=== PATIENT | male | born 1955 | race Two or more races ===

== ENCOUNTER 2024-07-16 20:24 | Inpatient (IN) | payer OTHER, MEDICAID, MEDICARE, SELFPAY ==
--- NOTE | 2024-07-16 20:36 | XR_ITS ---
Examination: AP chest single view Technique one AP portable upright chest single view Exam date and time: July 16, 2024 210 hrs. Comparison June 21, 2024 Indications: Onset shortness of breath today Findings: Normal heart size Lungs are clear The osseous structures are intact Impression: No active disease
--- NOTE | 2024-07-16 20:39 | PD.EDADULT ---
ED General RME/HPI General Chief complaint: Shortness of Breath/Dyspnea Stated complaint: SOB Time Seen by Provider: 07/16/24 20:35 Arrival date/time: 07/16/24 20:24 CC: Cough and shortness of breath HPI onset 2 hours ago. The patient has significant history of 37-uwdh-dorb smoking history and was recently discharged from this facility for shortness of breath pneumonia COPD exacerbation. EMS reports stable vital signs oxygen saturation of 90% with tachypnea and nonproductive wet cough. Patient states that he stopped smoking 2 months ago. Patient denies chest pain. Related Data Home Medications ?Medication ?Instructions ?Recorded ?Confirmed albuterol sulfate 90 mcg/actuation 2 puff inhalation Q4H PRN SOB 06/23/24 06/23/24 aerosol inhaler Previous Rx's ?Medication ?Instructions ?Recorded fluticasone 55 mcg-salmeterol 14 1 inh inhalation BID #1 ea 06/23/24 mcg/actuation breath activated powder prednisone 10 mg tablets in a dose 10 mg PO QDAY #21 tabs 06/23/24 pack amlodipine 10 mg tablet 10 mg PO QDAY 30 days #30 tabs 06/24/24 nicotine 21 mg/24 hr daily 21 mg topical QDAY #28 ea 06/24/24 transdermal patch Allergies Allergy/AdvReac Type Severity Reaction Status Date / Time No Known Allergies Allergy Verified 06/22/24 01:34 Review of Systems Review of Systems Narrative Review of Systems: GEN: No fever, no chills, no weight loss EYES: No discharge, no visual changes, no pain HEENT: No ear pain, no congestion, no sore throat PULM: No shortness of breath, + cough, no congestion CV: No chest pain, no dyspnea on exertion, no palpitations GI: No nausea, no vomiting, no diarrhea, no pain, no constipation : No frequency, no urgency, no dysuria MUSC/SKEL: No joint pain, no back pain SKIN: No rash PSYCH: No hallucinations, no depression HEME/LYMPH: No easy bleeding or bruising tendencies NEURO: No weakness, no headache Past Medical History Past Medical History CARDIAC: Positive Hypertension; Negative Cardiac Disorders or Congestive Heart Failure RESPIRATORY: Negative Chronic Obstructive Pulmonary Disease (COPD) or Asthma GENITOURINARY: Negative Renal Disease ENDOCRINE: Negative Diabetes Mellitus Type 1 or Diabetes Mellitus Type 2 HEMATOLOGIC: Negative Sickle Cell Disease Social History SMOKING STATUS: Current every day smoker ED Exam Narrative Physical exam: [General: Mild discomfort not in any acute distress Head normocephalic HEENT: Eyes pupils are PERRLA EOM intact. Mouth pink dry membranes uvula midline swallow symmetrical phonation is normal all the subsystems of HEENT are within acceptable limits Neck is supple nontender no JVD Chest equal chest rise nontender to palpation Respiratory: Coarse expiratory nonproductive cough. Crackles throughout. CV: Rate rhythm is regular no murmurs rubs or clicks Abdomen is soft nontender no masses positive bowel sounds all 4 quadrants Back: No CVA tenderness no spinous process tenderness from cervical spine thoracic and lumbar spine Skin: Intact no petechiae rash induration ulceration or crepitus Extremities: Moving all extremity against resistance cap refill less than 2 seconds neurosensory intact Neuro: Awake alert oriented x3 Glascow coma 15 no focal deficits] Course Course Course Narrative: Oxygen saturations 88% on room air with persistent cough audible expiratory wheezing. Quality Measures none Orders Category Date Time Status Bedside COVID-19 Antigen Test NOW Care 07/16/24 22:22 Active Bedside Influenza A&B Antigen Test NOW Care 07/16/24 22:22 Active EKG (ED ONLY) *Do not use* NOW Care 07/16/24 20:36 Completed EKG (ED Only) Stat Exams 07/16/24 20:36 Ordered XR chest 1V Stat Exams 07/16/24 20:36 Taken B-Type Natriuretic Peptide Stat Lab 07/16/24 21:00 Completed CBC Stat Lab 07/16/24 21:00 Completed Comprehensive Metabolic Panel Stat Lab 07/16/24 21:00 Completed Drug Screen,Urine Stat Lab 07/16/24 20:36 Ordered LDH (Lactate Dehydrogenase) Stat Lab 07/16/24 21:00 Completed Magnesium Stat Lab 07/16/24 21:00 Completed Partial Thromboplastin Time Stat Lab 07/16/24 21:00 Completed Prothrombin Time with INR Stat Lab 07/16/24 21:00 Completed Troponin I Stat Lab 07/16/24 21:00 Completed Urinalysis Stat Lab 07/16/24 20:36 Ordered ALBUTEROL RT 0.5ml [Proventil Rt 0.5ml] Med 07/16/24 21:33 Discontinued 10 mg INH X1 ONE ALBUTEROL RT 5 ml [Proventil Rt 5 ml] Med 07/16/24 21:24 Discontinued 10 mg INH X1 ONE Albuterol/Ipratr Rt Catrina [Duoneb Rt Catrina] Med 07/16/24 20:36 Discontinued 3 ml INH X1 ONE MethylPREDNISolone.* [SoluMEDROL Inj] Med 07/16/24 20:42 Discontinued 125 mg IVP X1 ONE Sodium Chloride Rt Catrina 0.9% [NS Rt Catrina 0.9%] Med 07/16/24 21:33 Active 3 ml INH PRN PRN Vital Signs Vital signs: Vital Signs Temperature 98.2 F 07/16/24 20:52 Pulse Rate 83 07/16/24 20:52 Respiratory Rate 20 07/16/24 20:52 Blood Pressure 134/85 H 07/16/24 20:52 Pulse Oximetry (%) 100 07/16/24 20:52 Oxygen Delivery Method Room Air 07/16/24 20:52 [facility] Patient data External records reviewed:: [facility] previous records and EMS form Clinical information provided by:: patient and EMS Social determinants that could affect healthcare access:: none Patient has the following chronic illnesses:: COPD [id number] smoking history stopped smoking 2 months ago How is presenting disease/condition affected by chronic disease/condition?: exacerbated by Evaluation data The following diagnostics were reviewed and interpreted by me:: lab results, radiology exam(s) and EKG tracing(s) Lab and/or radiology exams considered but not ordered:: EKG performed at 2119 shows ventricular rate of 86 [place] interval 171 QRS 95 QTc of 392 is normal sinus rhythm. CBC shows no acute leukocytosis anemia thrombocytopenia. Coags within acceptable CMP shows no acute electrolyte imbalances renal impairment transaminitis or T. bili elevation Troponin is negative BNP is negative Lipase is negative Chest x-ray as interpreted by me shows no acute or blatant infiltrate Interpretation Summary: Oxygen saturations decreased to 88% on room air and the patient can persistently coughs, and is moving air but has coarse expiratory crackles after hour-long SVN. At this time that I like to admit the patient for hypoxemia and COPD exacerbation. Patient's case discussed with the resident for Dr. Bolton who agrees to except the patient for admission. Medications Medications considered but not ordered:: None Medication administrations:: Medication Administration History Sodium Chloride (Sodium Chloride Rt Catrina 0.9% 3 Ml Nebu) 3 ml INH PRN PRN PRN Reason: SOLN Stop: 08/15/24 21:32 Last Admin: 07/16/24 21:39 Dose: 3 ml Documented By: BARBRA Discontinued Medications Albuterol (Albuterol Rt 25 Mg/5 Ml Nebu) 10 mg INH X1 ONE Stop: 07/16/24 21:25 Albuterol (Albuterol Rt 2.5 Mg/0.5 Ml Nebu) 10 mg INH X1 ONE Stop: 07/16/24 21:34 Last Admin: 07/16/24 21:39 Dose: 10 mg Documented By: BARBRA Albuterol/Ipratropium (Albuterol/Ipratropium (Duoneb) Rt Catrina 3 Ml Nebu) 3 ml INH X1 ONE Stop: 07/16/24 20:37 Last Admin: 07/16/24 21:16 Dose: 3 ml Documented By: BARBRA Methylprednisolone Sodium Succinate (Methylprednisolone Sod Succ 62.5 Mg/Ml 2ml Vial) 125 mg IVP X1 ONE Stop: 07/16/24 20:43 Last Admin: 07/16/24 21:30 Dose: 125 mg Documented By: MANI No Consultations Consultation(s) initiated? (list below): No Diagnosis Differential Diagnosis ED Complaint MDM: Pneumonia COPD exacerbation CHF Most likely diagnosis given after review of the tests above:: COPD exacerbation Admission Indicated Admission indicated?: indicated Explain why admission is indicated or not indicated:: Requires further medical management Admission Request Was there a request for admission?: No Disposition Plan Disposition Plan: Discharge Discharge Attestation Discharge Attestation: The patient and all family members were given an opportunity to ask questions and understood the discharge instructions. Discharge instructions specifically effects, indications for sooner follow up or return to the emergency department, and the expected course of current diagnosis. Patient condition: Stable Medical Decision Making Differential Diagnosis Differential Diagnosis: Pneumonia COPD exacerbation CHF Lab Data 07/16/24 21:00 07/16/24 21:00 Labs: Lab Results 07/16/24 Range/Units 21:00 WBC 9.4 (3.8-10.6) Thou/mm3 RBC 4.99 (4.50-5.90) Miln/mm3 Hgb 16.2 H (13.5-16.0) g/dL Hct 46.6 (41.0-53.0) % MCV 93 (80-100) fL MCH 32.5 (25.0-35.0) pg MCHC 34.8 (31.0-37.0) g/dl RDW Std Deviation 39.7 (35.1-43.9) fL Plt Count 252 D (140-440) Thou/mm3 Neut % (Auto) 47 (37-80) % Lymph % (Auto) 26 (10-50) % [place] % (Auto) 10 (0-12) % Eos % (Auto) 16 H (0-10) % Baso % (Auto) 1 (0-2.5) % Neut # (Auto) 4.4 (1.8-7.7) Thou/mm3 Lymph # (Auto) 2.5 (1.0-4.8) Thou/mm3 [place] # (Auto) 0.9 H (0.0-0.8) Thou/mm3 Eos # (Auto) 1.5 H (0.0-0.5) Thou/mm3 Baso # (Auto) 0.1 (0.0-0.2) Thou/mm3 Immature Gran # (Auto) 0.02 H (0.00-0.00) Thou/mm3 Absolute Nucleated RBC 0.00 (0.00-0.00) Thou/mm3 Immature Gran % 0 (0-0) % Nucleated RBC % 0 (0) /100 WBC PT 10.8 (9.0-12.2) Seconds INR 1.0 (0.9-1.3) APTT 24.8 (22.0-36.0) Seconds Sodium 135 L (136-145) mMol/L Potassium 4.0 (3.4-5.1) mMol/L Chloride 101 (98-107) mMol/L Carbon Dioxide 25.8 (20.0-31.0) mMol/L Anion Gap 8 (7-16) BUN 10 (9-23) mg/dL Creatinine 0.7 (0.6-1.3) mg/dL Estim Creat Clear Calc 102.4 (>60) mL/min eGFR > 60 (60 - ) See Note BUN/Creatinine Ratio 14 (12-20) Ratio Glucose 104 (74-106) mg/dL Calculated Osmolality 269 L (275-295) Calcium 9.9 (8.3-10.6) mg/dL Corrected Calcium 9.9 (8.5-10.1) mg/dL Magnesium 2.1 (1.6-2.6) mg/dL Total Bilirubin 0.5 (0.3-1.2) mg/dL AST 27 (0-34) U/L ALT 30 (10-49) U/L Alkaline Phosphatase 96 (46-116) U/L Lactate Dehydrogenase 164 (120-246) U/L Troponin I < 0.020 (0.0-0.045) ng/mL B-Natriuretic Peptide < 20 (0-100) pg/mL Total Protein 7.5 (5.7-8.2) gm/dL Albumin 4.6 (3.4-4.8) gm/dL Globulin 2.9 (2.3-3.5) gm/dL Albumin/Globulin Ratio 1.6 (1.2-2.2) Discharge Plan Plan Patient Disposition: Other Care w/in Hosp ([facility]) Patient condition on transfer: Stable Prescriptions/Referrals Prescriptions/Med Rec: No Action albuterol sulfate 90 mcg/actuation Hfa Aerosol Inhaler 2 puff INHALATION Q4H PRN (Reason: SOB ) fluticasone propion-salmeterol 55-14 mcg/actuation aerosol powdr breath activated 1 inh inhalation BID Qty: 1 0RF prednisone 10 mg tablets,dose pack 10 mg PO QDAY Qty: 21 0RF nicotine 21 mg/24 hr patch 24 hour 21 mg topical QDAY Qty: 28 0RF amlodipine 10 mg tablet 10 mg PO QDAY 30 Days Qty: 30 0RF Referrals: Sanchez Saini PA-C [Primary Care Provider] - In 1 week Problem List Clinical Impression: COPD exacerbation, Hypoxemia Patient/Caregiver Discharge Instructions Print Language: Danish Stand Alone Forms: Yuli Award Info., Patient Portal Info Letter PA/ASSISTANT FOOD SERVICE MANAGER Supervising Physician PA/ASSISTANT FOOD SERVICE MANAGER Supervising Physician: Phani Brenner ENP
[2024-07-16 20:52] VITALS: BP 134/85; PULSE 83; RESP 20; TEMP 36.8; O2SAT 100
[2024-07-16 21:00] VITALS: PULSE 94; O2SAT 99; BMI 24.3
--- NOTE | 2024-07-16 21:05 | PC.NURSE ---
PT AWAKE AND ALERT BROUGHT INTO ER FROM HOME BY AMBULANCE FOR COMPLAINTS OF SHORTNESS OF BREATH X2 HOURS. PT REPORTS RECENT DX WITH PNEUMONIA WITH ADMISSION TO THE HOSPITAL. PER EMS PT SATTING 92 ON ROOM AIR. PT PLACED ON 15 LITERS IN ROUTE AND GIVEN X1 BREATHING TREATMENT. IV 18G PLACED TO LAC. PT HAS HISTORY OF COPD AND SMOKING. PT REPORTS HAS NOT SMOKED SINCE DC FROM HOSPITAL. PT DENIES ANY PAIN. PT COUGHING ON ARRIVAL, REPORTS UNABLE TO COUGH UP PHLEGM. PT PLACED ON MONITOR.
[2024-07-16] MEDS: ALBUTEROL/IPRATROPIUM (Duoneb) RT SOL 3 ML NEBU INH (21:16)
[2024-07-16 21:23] LABS: Basophils # (Auto) 0.1 Thou/mm3 (0.0-0.2); Basophils % (Auto) 1 % (0-2.5); Eosinophils # (Auto) 1.5 Thou/mm3 (0.0-0.5); Eosinophils % (Auto) 16 % (0-10); Hematocrit 46.6 % (41.0-53.0); Hemoglobin 16.2 g/dL (13.5-16.0); Immature Granulocytes % (Auto) 0 % (0-0); Immature Granulocytes Auto 0.02 Thou/mm3 (0.00-0.00); Lymphocytes # (Auto) 2.5 Thou/mm3 (1.0-4.8); Lymphocytes % (Auto) 26 % (10-50); Mean Corpuscular HGB Conc 34.8 g/dl (31.0-37.0); Mean Corpuscular Hemoglobin 32.5 pg (25.0-35.0); Mean Corpuscular Volume 93 fL (80-100); Monocytes # (Auto) 0.9 Thou/mm3 (0.0-0.8); Monocytes % (Auto) 10 % (0-12); Neutrophils # (Auto) 4.4 Thou/mm3 (1.8-7.7); Neutrophils % (Auto) 47 % (37-80); Nucleated Red Blood Cell % 0 /100 WBC (0); Platelet Count 252 Thou/mm3 (140-440); RDW Standard Deviation 39.7 fL (35.1-43.9); Red Blood Count 4.99 Miln/mm3 (4.50-5.90); White Blood Count 9.4 Thou/mm3 (3.8-10.6)
[2024-07-16 21:24] VITALS: PULSE 103; RESP 26; O2SAT 98
[2024-07-16] MEDS: MethylPREDNISolone SOD SUCC 62.5 MG/ML 2ML VIAL 125 MG IVP (21:30)
[2024-07-16 21:34] LABS: Partial Thromboplastin Time 24.8 Seconds (22.0-36.0); Prothrombin Time 10.8 Seconds (9.0-12.2)
[2024-07-16 21:35] LABS: B-Type Natriuretic Peptide < 20 pg/mL (0-100)
[2024-07-16 21:39] VITALS: PULSE 101
[2024-07-16] MEDS: ALBUTEROL RT 2.5 MG/0.5 ML NEBU 10 MG INH (21:39)
[2024-07-16] MEDS: SODIUM CHLORIDE RT SOL 0.9% 3 ML NEBU INH (21:39)
[2024-07-16 21:40] LABS: Alanine Aminotransferase 30 U/L (10-49); Albumin, Serum 4.6 gm/dL (3.4-4.8); Albumin/Globulin Ratio 1.6 (1.2-2.2); Alkaline Phosphatase 96 U/L (46-116); Anion Gap 8 (7-16); Aspartate Amino Transferase 27 U/L (0-34); Bilirubin,Total 0.5 mg/dL (0.3-1.2); Blood Urea Nitrogen 10 mg/dL (9-23); Calcium 9.9 mg/dL (8.3-10.6); Calcium (Corrected) 9.9 mg/dL (8.5-10.1); Carbon Dioxide 25.8 mMol/L (20.0-31.0); Chloride 101 mMol/L (98-107); Globulin 2.9 gm/dL (2.3-3.5); Glucose 104 mg/dL (74-106); LDH (Lactate Dehydrogenase) 164 U/L (120-246); Magnesium 2.1 mg/dL (1.6-2.6); Osmolality,Calculated 269 (275-295); Sodium 135 mMol/L (136-145); Total Protein 7.5 gm/dL (5.7-8.2); Troponin I < 0.020 ng/mL (0.0-0.045)
[2024-07-16 21:41] VITALS: PULSE 98; RESP 24; O2SAT 99
[2024-07-16 21:49] LABS: BUN/Creatinine Ratio 14 Ratio (12-20); Creatinine (Component) 0.7 mg/dL (0.6-1.3); Estimated Creatinine Clearance 102.4 mL/min (>60); eGFR > 60 See Note
[2024-07-16 22:25] VITALS: BP 132/81; PULSE 101; RESP 26; O2SAT 88
--- NOTE | 2024-07-16 23:11 | PD.RESHP ---
Documentation for date of: 07/16/24 [facility] History of Present Illness History of present illness: Rosario Morrow is a 69-year-old male with a past medical history of COPD (no home O2) and hypertension who presents with worsening cough and shortness of breath. Patient states that symptoms started 3 days ago and getting worse feels prior to presenting to the ED. He states that he was sitting at home watching TV when he experienced his change in symptoms. In addition to cough and shortness of breath, he has had increased sputum production and sore throat but no fever or chills., He has a [id number] history of smoking cigarettes but states that he has stopped approximately 2 months ago. He still used to drink 8-12 beers per day but stopped drinking when he stopped smoking. Otherwise, patient admitted on 06/22 to 06/24 for acute COPD exacerbation, where he was prescribed azithromycin (which he finished), prednisone taper, and did not require home oxygen at that time. ED course: BP 132/81, HR 101, RR 26, 88% on 4 L NC, afebrile CBC unremarkable, CMP unremarkable, chest x-ray unremarkable In ED given DuoNebs, methylprednisolone 125 mg x 1, and albuterol x 1 PMHx: as noted above Medications: Amlodipine 10 mg daily SHx: [id number] history of smoking (quit 2 months ago), PSHx: no previous procedures Review of Systems Review of Systems Systems Reviewed: All systems reviewed, normal except as documented Exam Vital Signs Temp Pulse Resp BP Pulse Ox O2 Del Method O2 Flow Rate 98.2 F 101 H 26 H 132/81 H 88 L Room Air 4 07/16/24 20:52 07/16/24 22:25 07/16/24 22:25 07/16/24 22:25 07/16/24 22:25 07/16/24 22:25 07/16/24 21:41 Narrative Exam General: AOx3, no acute distress, able to speak full sentences HEENT: NC/AT, mucous membranes moist, bilateral sclera anicteric Cardiovascular: regular rate and rhythm, S1/S2 present, no murmurs appreciated Pulmonary: mild expiratory wheezing bilaterally; not using accessory muscles, breathing comfortably on NC Abdominal: soft, non-tender, non-distended, no rebound/guarding, normal bowel sounds present Musculoskeletal: normal ROM, no peripheral edema Skin: warm and dry, intact, no rashes Neuro: CN II-XII intact, no focal deficits Results: Labs 07/17/24 04:37 07/17/24 04:37 Labs: Short CBC 07/16/24 Range/Units 21:00 WBC 9.4 (3.8-10.6) Thou/mm3 Hgb 16.2 H (13.5-16.0) g/dL Hct 46.6 (41.0-53.0) % Plt Count 252 D (140-440) Thou/mm3 BMP 07/16/24 21:00 Sodium 135 L Potassium 4.0 Chloride 101 Carbon Dioxide 25.8 BUN 10 Creatinine 0.7 Glucose 104 Calcium 9.9 Cardiac Enzymes 07/16/24 Range/Units 21:00 Troponin I < 0.020 (0.0-0.045) ng/mL Liver Function 07/16/24 Range/Units 21:00 Total Bilirubin 0.5 (0.3-1.2) mg/dL AST 27 (0-34) U/L ALT 30 (10-49) U/L Alkaline Phosphatase 96 (46-116) U/L Albumin 4.6 (3.4-4.8) gm/dL Quality Measures Quality Measures none Advance care planning discussed with:: patient Medications Home Medications and Allergies Home Medications ?Medication ?Instructions ?Recorded ?Confirmed ?Type albuterol sulfate 90 mcg/actuation 2 puff inhalation Q4H PRN SOB 06/23/24 06/23/24 History aerosol inhaler Allergies Allergy/AdvReac Type Severity Reaction Status Date / Time No Known Allergies Allergy Verified 06/22/24 01:34 Visit Medications Acetaminophen (Acetaminophen 325 Mg Tablet) 650 mg PO Q6H PRN PRN Reason: PAIN OR FEVER > 101 Stop: 08/15/24 23:02 Azithromycin (Azithromycin 250 Mg Tablet) 250 mg PO QDAY ANTONI Stop: 07/24/24 08:59 Guaifenesin/Dextromethorphan (Guaifenesin/Dm Tablet) 1 each PO Q4HR PRN PRN Reason: COUGH Stop: 08/15/24 23:04 Heparin Sodium (Porcine) (Heparin Sod Inj 5000 Unit/Ml Vial) 5,000 unit SC Q12H ANTONI Stop: 07/30/24 23:14 Ipratropium [place] (Ipratropium Rt 0.5 Mg/ 2.5 Ml Nebu) mg INH Q4HRRT COUNTS INCLUDE 234 BEDS AT THE [facility] Stop: 08/16/24 02:59 Levalbuterol HCl (Levalbuterol Rt 0.63 Mg/3 Ml Nebu) 0.63 mg INH Q4HRRT COUNTS INCLUDE 234 BEDS AT THE [facility] Stop: 08/16/24 02:59 Nicotine (Nicotine Patch 14 Mg/24 Hr Patch.Td24) 14 mg TOP QDAY PRN PRN Reason: SMOKING CESSATION Stop: 08/16/24 08:59 Ondansetron HCl (Ondansetron Inj 2 Mg/Ml Inj 2 Ml) 4 mg IV Q6H PRN; Protocol PRN Reason: NAUSEA OR VOMITING Stop: 08/15/24 23:02 Pantoprazole Sodium (Pantoprazole 40 Mg Tablet) 40 mg PO QDAY COUNTS INCLUDE 234 BEDS AT THE [facility] Stop: 08/16/24 08:59 Prednisone (Prednisone 20 Mg Tablet) 40 mg PO QDAY COUNTS INCLUDE 234 BEDS AT THE [facility] Stop: 07/23/24 23:05 Sodium Chloride (Sodium Chloride Rt Catrina 0.9% 3 Ml Nebu) 3 ml INH PRN PRN PRN Reason: SOLN Stop: 08/15/24 21:32 Last Admin: 07/16/24 21:39 Dose: 3 ml Discontinued Medications Albuterol (Albuterol Rt 25 Mg/5 Ml Nebu) 10 mg INH X1 ONE Stop: 07/16/24 21:25 Last Admin: 07/16/24 23:04 Dose: Not Given Albuterol (Albuterol Rt 2.5 Mg/0.5 Ml Nebu) 10 mg INH X1 ONE Stop: 07/16/24 21:34 Last Admin: 07/16/24 21:39 Dose: 10 mg Albuterol/Ipratropium (Albuterol/Ipratropium (Duoneb) Rt Catrina 3 Ml Nebu) 3 ml INH X1 ONE Stop: 07/16/24 20:37 Last Admin: 07/16/24 21:16 Dose: 3 ml Azithromycin (Azithromycin 250 Mg Tablet) 500 mg PO X1 ONE Stop: 07/16/24 23:06 Methylprednisolone Sodium Succinate (Methylprednisolone Sod Succ 62.5 Mg/Ml 2ml Vial) 125 mg IVP X1 ONE Stop: 07/16/24 20:43 Last Admin: 07/16/24 21:30 Dose: 125 mg Assessment & Plan Plan Rosario Morrow is a 69-year-old male with a past medical history of COPD (no home O2) and hypertension who is admitted for COPD exacerbation. #Acute hypoxic respiratory failure, secondary to #COPD exacerbation Presents with cough, increased sputum production, and shortness of breath requiring supplemental O2. Previous [id number] smoking history, states he quit 2 months ago. ? Levalbuterol and ipratropium every 4 hours ? Azithromycin 250 mg p.o. daily ? Prednisone 40 mg p.o. daily ? Supplemental oxygenation as needed ? Maintain oxygen saturation between 88-92% ? Nicotine patch ? Mucinex for chest congestion #Hypertension ? Amlodipine 10 mg daily Hospital management: Disposition: med surg Fluids: not indicated Diet: regular Lines: peripheral DVT prophylaxis: heparin SC BID GI prophylaxis: pantoprazole 40 mg PO daily CODE STATUS: full code ----- Plan discussed with attending physician Dr. Hoang Cruz MD PGY-1 Internal Medicine Attending Provider Attestation/Addendum I reviewed labs, imaging, EKG, home medications and prior available records. Face to face evaluation was performed by me. I have personally examined the patient and discussed assessment and plan with the IM team. I reviewed the resident note and agree with the plan with exceptions as below. 69-year-old male with history of COPD and tobacco use who presented with a chief complaint of cough and shortness of breath. He was found to have COPD exacerbation. COPD exacerbation: Likely in the setting of medication noncompliance. Started the patient on DuoNebs. Start prednisone 40 mg daily. Continue smoking abstinence. Ensure medication compliance. Start azithromycin.
[2024-07-16] MEDS: AZITHROMYCIN 250 MG TABLET 500 MG PO (23:52)
[2024-07-17] VITALS (15 sets, daily range): BP systolic 139–157; BP diastolic 69–96; PULSE 71–90; RESP 18–90; TEMP 36.2–37.2; O2SAT 90–99; BMI 24.3
--- NOTE | 2024-07-17 00:44 | PC.NURSE ---
ATTEMPT TO CALL DR. DEGROOT AND RESIDENTS IN REGARDS TO ORDER FOR BROMIDE BREATHING TREATMENT D/T CALL RECEIVED FROM PHARMACY. NO ANSWER AT THIS TIME. WILL ATTEMPT TO CALL BACK.
[2024-07-17] MEDS: LEVALBUTEROL RT 0.63 MG/3 ML NEBU INH ×3 (02:10→10:04)
[2024-07-17 04:45] LABS: Basophils % (Auto) 0 % (0-2.5); Eosinophils % (Auto) 0 % (0-10); Hematocrit 43.4 % (41.0-53.0); Hemoglobin 15.3 g/dL (13.5-16.0); Immature Granulocytes % (Auto) 0 % (0-0); Immature Granulocytes Auto 0.01 Thou/mm3 (0.00-0.00); Lymphocytes # (Auto) 0.4 Thou/mm3 (1.0-4.8); Lymphocytes % (Auto) 7 % (10-50); Mean Corpuscular HGB Conc 35.3 g/dl (31.0-37.0); Mean Corpuscular Hemoglobin 32.8 pg (25.0-35.0); Mean Corpuscular Volume 93 fL (80-100); Monocytes % (Auto) 1 % (0-12); Neutrophils # (Auto) 5.1 Thou/mm3 (1.8-7.7); Neutrophils % (Auto) 92 % (37-80); Nucleated Red Blood Cell % 0 /100 WBC (0); Platelet Count 228 Thou/mm3 (140-440); RDW Standard Deviation 39.7 fL (35.1-43.9); Red Blood Count 4.66 Miln/mm3 (4.50-5.90); White Blood Count 5.5 Thou/mm3 (3.8-10.6)
[2024-07-17 05:08] LABS: Anion Gap 9 (7-16); BUN/Creatinine Ratio 13 Ratio (12-20); Blood Urea Nitrogen 10 mg/dL (9-23); Calcium 9.8 mg/dL (8.3-10.6); Carbon Dioxide 25.5 mMol/L (20.0-31.0); Cardiac Risk Estimate 3.5 RATIO (4.0-6.7); Chloride 100 mMol/L (98-107); Cholesterol 167 mg/dL (132-200); Creatinine (Component) 0.8 mg/dL (0.6-1.3); Estimated Creatinine Clearance 89.6 mL/min (>60); Glucose 211 mg/dL (74-106); HDL Cholesterol 48 mg/dL (40-60); LDL Cholesterol,Calculated 110 mg/dL (0-130); Magnesium 1.9 mg/dL (1.6-2.6); Osmolality,Calculated 273 (275-295); Phosphorous 3.6 mg/dL (2.4-5.1); Potassium 4.2 mMol/L (3.4-5.1); Sodium 134 mMol/L (136-145); Triglycerides 43 mg/dL (30-150); eGFR > 60 See Note
[2024-07-17] MEDS: IPRATROPIUM RT 0.5 MG/ 2.5 ML NEBU INH ×2 (06:02→10:04)
--- NOTE | 2024-07-17 07:15 | PC.NURSE ---
in to assess pt. pt resting quietly at this time with c/o sob for the past 3 months and cough. pt without further complaints at this time. orders received and initiated. call light is within reach. plan of care ongoing.
[2024-07-17] MEDS: PANTOPRAZOLE 40 MG TABLET PO (08:30)
[2024-07-17] MEDS: amLODIPine BESYLATE 5 MG TABLET 10 MG PO (08:31)
[2024-07-17 08:32] LABS: Collection Type, Urine Clean Catch
[2024-07-17] MEDS: predniSONE 20 MG TABLET 40 MG PO (08:32)
[2024-07-17] MEDS: HEPARIN SOD INJ 5000 UNIT/ML VIAL SC ×2 (08:33→20:41)
[2024-07-17 08:34] LABS: Bacteria,Urine Rare; Bilirubin,Urine Negative (Negative); Blood,Urine Negative (Negative); Clarity,Urine Clear (Clear/Hazy); Color,Urine Yellow (Lt Yel-Yel); Glucose, Urine Trace (Negative); Hyaline Casts,Urine < 1 /hpf (0-1); Ketones,Urine Negative (Negative); Leukocyte Esterase,Urine Negative (Negative); Nitrite,Urine Negative (Negative); Protein,Urine 1+ (Neg - Trace); RBC,Urine 3 /hpf (0-3); Specific Gravity,Urine 1.029 (1.001-1.035); Squamous Epithelial Cell,Urine < 1 /hpf (0-5); Urobilinogen,Urine Negative mg/dL (0.0-1.0); WBC,Urine 5 /hpf (0-5)
[2024-07-17 08:40] LABS: Amphetamine/Methamp Scrn,U Negative (Negative); Barbiturate Screen,Urine Negative (Negative); Benzodiazepines Screen,Urine Negative (Negative); Benzoylecgonine Screen, Ur Negative (Negative); Fentanyl Screen,Urine Negative (Negative); Opiate Screen,Urine Negative (Negative); THC Screen,Urine Negative (Negative)
[2024-07-17] MEDS: ALBUTEROL/IPRATROPIUM (Duoneb) RT SOL 3 ML NEBU INH ×3 (14:00→22:55)
[2024-07-17] MEDS: Magnesium Sulfate 2 GM Ivpb 2 GM/50 ML BAG IV (14:36)
--- NOTE | 2024-07-17 14:41 | ESPR_ITS ---
<Statement entered by Chao Cedeno MD - 07/17/24 16:32> Senior Resident Attestation: I supervised/discussed management plan with sales management intern physician Dr. Kennedy, and was involved in the care of this patient. I personally saw and examined the patient and discussed the assessment and plan with the entire medicine team, including my attending. I agree with the assessment and plan as documented. Patient was seen and examined at the bedside. He continues to have mild expiratory wheezing. Prednisone was changed to Solu-Medrol and Levalbuterol was changed to DuoNebs. We will continue him on azithromycin. Patient's care was discussed with attending physician, Dr. Fine. Chao Cedeno MD PGY-2. Documentation for date of: 07/17/24 Subjective Subjective Interval history: Patient seen at bedside this morning. No overnight events. Patient stated that he has not smoked or drank alcohol in about 2 months now. He also stated that he has been short of breath for the past few weeks and say that he has not had any sick contacts at this time. No other complaints at this time. Exam Vital Signs Temp Pulse Resp BP Pulse Ox O2 Del Method O2 Flow Rate 98.2 F 74 19 142/88 H 95 Nasal Cannula 1 07/17/24 12:36 07/17/24 14:00 07/17/24 14:00 07/17/24 12:36 07/17/24 14:00 07/17/24 12:36 07/17/24 14:00 Narrative Exam General: A/O x3, no acute distress Eyes: PERRL, EOMI. Anicteric, vision grossly intact. Ears: No ear pain, no ear discharge, Hearing grossly intact. Nose: No nasal discharge. Mouth/Throat: Dry mucous membranes, no redness, no lesions. Neck: Neck supple, non-tender, no cervical lymphadenopathy. Lungs: Wheezing, No accessory muscle use. Cardio: Normal S1/S2, regular rhythm, no murmurs, no JVD. Abdomen: Soft, non-tender, no palpable masses, peristalsis present, no guarding or rebound. Extremities: Symmetrical, no significant deformities, no peripheral edema , non-tender, peripheral pulses presents. Skin: No rashes, no lesions, warm to touch. Neuro: No focal neurological deficits. motor and sensory intact Psych: Cooperative, appropriate mood and effect. Objective Labs 07/17/24 04:37 07/17/24 04:37 Labs: Laboratory Results - last 24 hr 07/16/24 07/17/24 07/17/24 21:00 04:37 07:32 WBC 9.4 5.5 D RBC 4.99 4.66 Hgb 16.2 H 15.3 Hct 46.6 43.4 MCV 93 93 MCH 32.5 32.8 MCHC 34.8 35.3 RDW Std Deviation 39.7 39.7 Plt Count 252 D 228 Neut % (Auto) 47 92 H Lymph % (Auto) 26 7 L [place] % (Auto) 10 1 Eos % (Auto) 16 H 0 Baso % (Auto) 1 0 Neut # (Auto) 4.4 5.1 Lymph # (Auto) 2.5 0.4 L [place] # (Auto) 0.9 H 0.0 Eos # (Auto) 1.5 H 0.0 Baso # (Auto) 0.1 0.0 Immature Gran # (Auto) 0.02 H 0.01 H Absolute Nucleated RBC 0.00 0.00 Immature Gran % 0 0 Nucleated RBC % 0 0 PT 10.8 INR 1.0 APTT 24.8 Sodium 135 L 134 L Potassium 4.0 4.2 Chloride 101 100 Carbon Dioxide 25.8 25.5 Anion Gap 8 9 BUN 10 10 Creatinine 0.7 0.8 Estim Creat Clear Calc 102.4 89.6 eGFR > 60 > 60 BUN/Creatinine Ratio 14 13 Glucose 104 211 H D Calculated Osmolality 269 L 273 L Calcium 9.9 9.8 Corrected Calcium 9.9 Phosphorus 3.6 Magnesium 2.1 1.9 Total Bilirubin 0.5 AST 27 ALT 30 Alkaline Phosphatase 96 Lactate Dehydrogenase 164 Troponin I < 0.020 B-Natriuretic Peptide < 20 Total Protein 7.5 Albumin 4.6 Globulin 2.9 Albumin/Globulin Ratio 1.6 Triglycerides 43 Cholesterol 167 LDL Cholesterol, Calc 110 HDL Cholesterol 48 Cholesterol/HDL Ratio 3.5 L Ur Collection Type Clean Catch Urine Color Yellow Urine Clarity Clear Urine pH 6.0 Ur Specific [place] 1.029 Urine Protein 1+ A Urine Glucose (UA) Trace Urine Ketones Negative Urine Blood Negative Urine Nitrite Negative Urine Bilirubin Negative Urine Urobilinogen (Auto) Negative Ur Leukocyte Esterase Negative Urine RBC 3 Urine WBC 5 Ur Squamous Epith Cells < 1 Urine Bacteria Rare Hyaline Casts < 1 Urine Opiates Screen Urine Fentanyl Screen Ur Barbiturates Screen U Amphetamin/Meth Scrn U Benzodiazepines Scrn U Cocaine Metab Screen U Marijuana (THC) Screen 07/17/24 08:23 WBC RBC Hgb Hct MCV MCH MCHC RDW Std Deviation Plt Count Neut % (Auto) Lymph % (Auto) [place] % (Auto) Eos % (Auto) Baso % (Auto) Neut # (Auto) Lymph # (Auto) [place] # (Auto) Eos # (Auto) Baso # (Auto) Immature Gran # (Auto) Absolute Nucleated RBC Immature Gran % Nucleated RBC % PT INR APTT Sodium Potassium Chloride Carbon Dioxide Anion Gap BUN Creatinine Estim Creat Clear Calc eGFR BUN/Creatinine Ratio Glucose Calculated Osmolality Calcium Corrected Calcium Phosphorus Magnesium Total Bilirubin AST ALT Alkaline Phosphatase Lactate Dehydrogenase Troponin I B-Natriuretic Peptide Total Protein Albumin Globulin Albumin/Globulin Ratio Triglycerides Cholesterol LDL Cholesterol, Calc HDL Cholesterol Cholesterol/HDL Ratio Ur Collection Type Urine Color Urine Clarity Urine pH Ur Specific [place] Urine Protein Urine Glucose (UA) Urine Ketones Urine Blood Urine Nitrite Urine Bilirubin Urine Urobilinogen (Auto) Ur Leukocyte Esterase Urine RBC Urine WBC Ur Squamous Epith Cells Urine Bacteria Hyaline Casts Urine Opiates Screen Negative Urine Fentanyl Screen Negative Ur Barbiturates Screen Negative U Amphetamin/Meth Scrn Negative U Benzodiazepines Scrn Negative U Cocaine Metab Screen Negative U Marijuana (THC) Screen Negative Quality Measures Quality Measures none Advance care planning discussed with:: patient Assessment & Plan Assessment Current Active Medications: Generic Name Dose Route Start Last Admin Trade Name Freq PRN Reason Stop Dose Admin Acetaminophen 650 mg 07/16/24 23:03 Acetaminophen 325 Mg Tablet PO 08/15/24 23:02 Q6H PRN PAIN OR FEVER > 101 Albuterol/Ipratropium 3 ml 07/17/24 15:00 07/17/24 14:00 Albuterol/Ipratropium (Duoneb) Rt Catrina 3 Ml Nebu INH 08/16/24 14:59 3 ml Q4HRRT ANTONI Administration Amlodipine Besylate 10 mg 07/17/24 09:00 07/17/24 08:31 Amlodipine Besylate 5 Mg Tablet PO 08/16/24 08:59 10 mg QDAY ANTONI Administration Azithromycin 250 mg 07/17/24 21:00 Azithromycin 250 Mg Tablet PO 07/24/24 20:59 DAILY@2100 [facility] Guaifenesin/Dextromethorphan 1 each 07/16/24 23:05 Guaifenesin/Dm Tablet PO 08/15/24 23:04 Q4HR PRN COUGH Heparin Sodium (Porcine) 5,000 unit 07/17/24 09:00 07/17/24 08:33 Heparin Sod Inj 5000 Unit/Ml Vial SC 07/31/24 08:59 5,000 unit Q12HR ANTONI Administration Magnesium Sulfate 2 gm in 50 mls @ 25 mls/hr 07/17/24 13:37 07/17/24 14:36 Magnesium Sulfate Ivpb IV 07/17/24 15:36 25 mls/hr X1 ONE Administration Methylprednisolone Sodium Succinate 40 mg 07/17/24 21:00 Methylprednisolone Sod Succ 62.5 Mg/Ml 2ml Vial IVP 07/24/24 20:59 BID ANTONI Nicotine 14 mg 07/16/24 23:05 Nicotine Patch 14 Mg/24 Hr Patch.Td24 TOP 08/16/24 08:59 QDAY PRN SMOKING CESSATION Ondansetron HCl 4 mg 07/16/24 23:03 Ondansetron Inj 2 Mg/Ml Inj 2 Ml IV 08/15/24 23:02 Q6H PRN NAUSEA OR VOMITING Protocol Pantoprazole Sodium 40 mg 07/17/24 09:00 07/17/24 08:30 Pantoprazole 40 Mg Tablet PO 08/16/24 08:59 40 mg QDAY ANTONI Administration Sodium Chloride 3 ml 07/16/24 21:33 07/16/24 21:39 Sodium Chloride Rt Catrina 0.9% 3 Ml Nebu INH 08/15/24 21:32 3 ml PRN PRN Administration SOLN Plan 69-year-old male with past medical history of COPD and hypertension was admitted to the hospital on 07/16/2024 due to acute hypoxic respiratory failure secondary to COPD exacerbation. #Acute hypoxic respiratory failure #Acute COPD exacerbation #Hx of tobacco abuse ?Patient came in with shortness of breath and worsening cough. ?Patient mentioned he had not been using his inhaler as he ran out. ?Patient has some wheezing today bilateral ?Patient is currently on nasal cannula 1 L Plan: ?Continue azithromycin [ 07/16/2024? ] ?continue IV Solu-Medrol twice daily ?Albuterol/ipratropium every 4 hours scheduled ?Will continue to monitor #Asymptomatic bacteriuria ? UA was positive for bacteria, but patient does not have any symptoms therefore it will not be placed on antibiotics. #Hx of hypertension ?Continue amlodipine 10 mg daily Disposition: Patient Seen in ED, continue steroids and albuterol/ipratropium. Diet: Regular GI prophylaxis: protonix DVT prophylaxis: Heparin Sc Code:Full Case disclosed with Attending Dr. Fine and My senior Dr. Cedeno PGY2. Shiv Peña PGY1 Attending Provider Attestation/Addendum Candis Spear, , attest that I was physically present for the zepeda portions of the service and evaluated the patient with the resident and I reviewed and discussed the case with the resident and agree with the resident's findings and plans of care as documented above Patient seen and eval this a.m. in ER 12. Patient reports that he has had worsening shortness of breath for the past few weeks. He reports having limited activities due to worsening shortness of breath on exertion. Patient states that he has been using his albuterol but ran out. He had taken a Z-Jeremy and oral prednisone outpatient without any resolution of his symptoms. On exam, patient is noted to have scattered wheezing. Will switch to IV Solu-Medrol and give magnesium as well. Patient remains on 2 L nasal cannula at this time. Will titrate O2 as tolerated. Will switch to DuoNebs at this time as patient is not tachycardic. Will continue with azithromycin as well for acute COPD exacerbation. Patient states that he has quit smoking.
[2024-07-17] MEDS: AZITHROMYCIN 250 MG TABLET PO (20:40)
[2024-07-17] MEDS: MethylPREDNISolone SOD SUCC 62.5 MG/ML 2ML VIAL 40 MG IVP (20:41)
[2024-07-18] VITALS (13 sets, daily range): BP systolic 126–153; BP diastolic 70–82; PULSE 63–99; RESP 17–20; TEMP 36.8–37.1; O2SAT 82–99
[2024-07-18] MEDS: ALBUTEROL/IPRATROPIUM (Duoneb) RT SOL 3 ML NEBU INH ×6 (02:33→22:46)
[2024-07-18 05:45] LABS: Basophils % (Auto) 0 % (0-2.5); Eosinophils % (Auto) 0 % (0-10); Hematocrit 41.9 % (41.0-53.0); Hemoglobin 14.5 g/dL (13.5-16.0); Immature Granulocytes % (Auto) 0 % (0-0); Immature Granulocytes Auto 0.05 Thou/mm3 (0.00-0.00); Lymphocytes # (Auto) 0.6 Thou/mm3 (1.0-4.8); Lymphocytes % (Auto) 5 % (10-50); Mean Corpuscular HGB Conc 34.6 g/dl (31.0-37.0); Mean Corpuscular Hemoglobin 32.1 pg (25.0-35.0); Mean Corpuscular Volume 93 fL (80-100); Monocytes # (Auto) 0.2 Thou/mm3 (0.0-0.8); Monocytes % (Auto) 2 % (0-12); Neutrophils # (Auto) 11.8 Thou/mm3 (1.8-7.7); Neutrophils % (Auto) 93 % (37-80); Nucleated Red Blood Cell % 0 /100 WBC (0); Platelet Count 238 Thou/mm3 (140-440); RDW Standard Deviation 39.4 fL (35.1-43.9); Red Blood Count 4.52 Miln/mm3 (4.50-5.90); White Blood Count 12.7 Thou/mm3 (3.8-10.6)
[2024-07-18 06:12] LABS: Anion Gap 8 (7-16); BUN/Creatinine Ratio 14 Ratio (12-20); Blood Urea Nitrogen 10 mg/dL (9-23); Calcium 9.7 mg/dL (8.3-10.6); Chloride 102 mMol/L (98-107); Creatinine (Component) 0.7 mg/dL (0.6-1.3); Estimated Creatinine Clearance 102.4 mL/min (>60); Glucose 164 mg/dL (74-106); Osmolality,Calculated 271 (275-295); Potassium 3.8 mMol/L (3.4-5.1); Sodium 134 mMol/L (136-145); eGFR > 60 See Note
[2024-07-18] MEDS: amLODIPine BESYLATE 5 MG TABLET 10 MG PO (08:01)
[2024-07-18] MEDS: HEPARIN SOD INJ 5000 UNIT/ML VIAL SC ×2 (08:01→20:21)
[2024-07-18] MEDS: PANTOPRAZOLE 40 MG TABLET PO (08:01)
[2024-07-18] MEDS: MethylPREDNISolone SOD SUCC 62.5 MG/ML 2ML VIAL 40 MG IVP ×2 (08:01→20:22)
--- NOTE | 2024-07-18 10:32 | PC.SS ---
Patient Rosario Morrow is a 69 Y/O male admitted for COPD Exacerbation. SS met with patient at bedside to discuss discharge plan. patient appeared alert and oriented to time, place and situation. Patient reports he lives at home with his life partner, Li Bailey who is patients surrogate decision maker [phone]. Patient is ambulatory and does not utilize any source of DME.Patient Patient's choice of pharmacy is [facility]. Patient's PCP is [facility] S[facility]. At time of discharge patient will return home. Next of kin: life partner, Li Bailey Discharge plan: home PCP: [facility] Sain[facility]
--- NOTE | 2024-07-18 14:57 | PD.RESPRO ---
Documentation for date of: 07/18/24 Subjective Subjective Interval history: Patient was seen and examined at the bedside. No acute overnight events. Patient is doing fine today, his breathing is improving. On physical exam there is no wheezing today. His WBCs went up to 12.7, likely due to steroids use. Will continue current management and monitor patient, will possibly discharge him with home oxygen once stable. Exam Vital Signs Temp Pulse Resp BP Pulse Ox O2 Del Method O2 Flow Rate 98.3 F 85 17 126/76 91 L Nasal Cannula 2 07/18/24 12:00 07/18/24 12:00 07/18/24 12:00 07/18/24 12:00 07/18/24 12:00 07/18/24 12:00 07/18/24 12:00 Narrative Exam Gen: Well-developed and well-nourished. HEENT: NCAT, PERRLA, EOMI, MMM, anicteric conjunctivae. CVS: normal S1 and S2. RRR. No M/R/G. Resp: Decreased breath sounds B/L. No rhonchi, rales, crackles or wheezing. Abd: soft, non-tender, non-distended. BS+ in all 4 quadrants. MSK: Good ROM in BUE & BLE. No edema or rash. Neuro: CN II-XII grossly intact. Strength 5/5 in BUE & BLE. Alert and oriented x3. Psych: appropriate mood and affect. Objective Labs 07/19/24 04:25 07/19/24 04:25 Labs: Laboratory Results - last 24 hr 07/18/24 04:00 WBC 12.7 H D RBC 4.52 Hgb 14.5 Hct 41.9 MCV 93 MCH 32.1 MCHC 34.6 RDW Std Deviation 39.4 Plt Count 238 Neut % (Auto) 93 H Lymph % (Auto) 5 L [place] % (Auto) 2 Eos % (Auto) 0 Baso % (Auto) 0 Neut # (Auto) 11.8 H Lymph # (Auto) 0.6 L [place] # (Auto) 0.2 Eos # (Auto) 0.0 Baso # (Auto) 0.0 Immature Gran # (Auto) 0.05 H Absolute Nucleated RBC 0.00 Immature Gran % 0 Nucleated RBC % 0 Sodium 134 L Potassium 3.8 Chloride 102 Carbon Dioxide 24.0 Anion Gap 8 BUN 10 Creatinine 0.7 Estim Creat Clear Calc 102.4 eGFR > 60 BUN/Creatinine Ratio 14 Glucose 164 H Calculated Osmolality 271 L Calcium 9.7 Quality Measures Quality Measures VTE prophylaxis Advance care planning discussed with:: patient Assessment & Plan Assessment Current Active Medications: Generic Name Dose Route Start Last Admin Trade Name Freq PRN Reason Stop Dose Admin Acetaminophen 650 mg 07/16/24 23:03 Acetaminophen 325 Mg Tablet PO 08/15/24 23:02 Q6H PRN PAIN OR FEVER > 101 Albuterol/Ipratropium 3 ml 07/17/24 15:00 07/18/24 14:51 Albuterol/Ipratropium (Duoneb) Rt Catrina 3 Ml Nebu INH 08/16/24 14:59 3 ml Q4HRRT ANTONI Administration Amlodipine Besylate 10 mg 07/17/24 09:00 07/18/24 08:01 Amlodipine Besylate 5 Mg Tablet PO 08/16/24 08:59 10 mg QDAY ANTONI Administration Azithromycin 250 mg 07/17/24 21:00 07/17/24 20:40 Azithromycin 250 Mg Tablet PO 07/24/24 20:59 250 mg DAILY@2100 ANTONI Administration Guaifenesin/Dextromethorphan 1 each 07/16/24 23:05 Guaifenesin/Dm Tablet PO 08/15/24 23:04 Q4HR PRN COUGH Heparin Sodium (Porcine) 5,000 unit 07/17/24 09:00 07/18/24 08:01 Heparin Sod Inj 5000 Unit/Ml Vial SC 07/31/24 08:59 5,000 unit Q12HR ANTONI Administration Methylprednisolone Sodium Succinate 40 mg 07/17/24 21:00 07/18/24 08:01 Methylprednisolone Sod Succ 62.5 Mg/Ml 2ml Vial IVP 07/24/24 20:59 40 mg BID ANTONI Administration Nicotine 14 mg 07/16/24 23:05 Nicotine Patch 14 Mg/24 Hr Patch.Td24 TOP 08/16/24 08:59 QDAY PRN SMOKING CESSATION Ondansetron HCl 4 mg 07/16/24 23:03 Ondansetron Inj 2 Mg/Ml Inj 2 Ml IV 08/15/24 23:02 Q6H PRN NAUSEA OR VOMITING Protocol Pantoprazole Sodium 40 mg 07/17/24 09:00 07/18/24 08:01 Pantoprazole 40 Mg Tablet PO 08/16/24 08:59 40 mg QDAY ANTONI Administration Sodium Chloride 3 ml 07/16/24 21:33 07/16/24 21:39 Sodium Chloride Rt Catrina 0.9% 3 Ml Nebu INH 08/15/24 21:32 3 ml PRN PRN Administration SOLN Plan 69-year-old male with past medical history of COPD and hypertension was admitted to the hospital on 07/16/2024 due to acute hypoxic respiratory failure secondary to COPD exacerbation. #Acute hypoxic respiratory failure. #Acute COPD exacerbation. #Hx of tobacco abuse. ?Patient came in with shortness of breath and worsening cough. ?Patient mentioned he had not been using his inhaler as he ran out. ?Patient has some wheezing today bilateral. ?Patient is currently on nasal cannula 1 L. Plan: ?Continue azithromycin [ 07/16/2024? ]. ?continue IV Solu-Medrol twice daily. ?Albuterol/ipratropium every 4 hours scheduled. ?Will continue to monitor. -will need home oxygen on d/c. #Asymptomatic bacteriuria. ? UA was positive for bacteria, but patient does not have any symptoms therefore it will not be placed on antibiotics. #Hx of hypertension. ?Continue amlodipine 10 mg daily. Disposition: Patient Seen in ED, continue steroids and albuterol/ipratropium. Diet: Regular. GI prophylaxis: protonix. DVT prophylaxis: Heparin Sc. Code:Full code. Plan of care discussed with attending Dr. Kuhn. Chao Cedeno MD, PGY 2. Disclaimer: This note was dictated by speech recognition. Minor errors in catheter finisher and inspector may be present due to voice recognition software. Attending Provider Attestation/Addendum The patient is still tachypneic. He is able to speak few words sentences. He denies chest pain. He is currently on bronchodilators and IV steroid. Patient denies chest pain. He is afebrile. Continue current medications and treatment. Discussed with housestaff.
[2024-07-18] MEDS: AZITHROMYCIN 250 MG TABLET PO (20:21)
[2024-07-19] VITALS (13 sets, daily range): BP systolic 123–143; BP diastolic 67–84; PULSE 72–98; RESP 18–20; TEMP 36.6–37.1; O2SAT 93–99
[2024-07-19] MEDS: ALBUTEROL/IPRATROPIUM (Duoneb) RT SOL 3 ML NEBU INH ×6 (02:22→22:05)
[2024-07-19 05:53] LABS: Basophils % (Auto) 0 % (0-2.5); Eosinophils % (Auto) 0 % (0-10); Hematocrit 41.4 % (41.0-53.0); Hemoglobin 14.5 g/dL (13.5-16.0); Immature Granulocytes % (Auto) 0 % (0-0); Immature Granulocytes Auto 0.03 Thou/mm3 (0.00-0.00); Lymphocytes # (Auto) 0.5 Thou/mm3 (1.0-4.8); Lymphocytes % (Auto) 5 % (10-50); Mean Corpuscular Hemoglobin 32.6 pg (25.0-35.0); Mean Corpuscular Volume 93 fL (80-100); Monocytes # (Auto) 0.3 Thou/mm3 (0.0-0.8); Monocytes % (Auto) 3 % (0-12); Neutrophils # (Auto) 10.5 Thou/mm3 (1.8-7.7); Neutrophils % (Auto) 92 % (37-80); Nucleated Red Blood Cell % 0 /100 WBC (0); Platelet Count 257 Thou/mm3 (140-440); RDW Standard Deviation 39.9 fL (35.1-43.9); Red Blood Count 4.45 Miln/mm3 (4.50-5.90); White Blood Count 11.4 Thou/mm3 (3.8-10.6)
[2024-07-19 06:15] LABS: Anion Gap 7 (7-16); BUN/Creatinine Ratio 19 Ratio (12-20); Blood Urea Nitrogen 13 mg/dL (9-23); Calcium 9.4 mg/dL (8.3-10.6); Carbon Dioxide 25.3 mMol/L (20.0-31.0); Chloride 102 mMol/L (98-107); Creatinine (Component) 0.7 mg/dL (0.6-1.3); Estimated Creatinine Clearance 102.4 mL/min (>60); Glucose 156 mg/dL (74-106); Osmolality,Calculated 271 (275-295); Sodium 134 mMol/L (136-145); eGFR > 60 See Note
[2024-07-19] MEDS: MethylPREDNISolone SOD SUCC 62.5 MG/ML 2ML VIAL 40 MG IVP ×2 (08:08→20:45)
[2024-07-19] MEDS: HEPARIN SOD INJ 5000 UNIT/ML VIAL SC ×2 (08:08→20:45)
[2024-07-19] MEDS: amLODIPine BESYLATE 5 MG TABLET 10 MG PO (08:09)
[2024-07-19] MEDS: PANTOPRAZOLE 40 MG TABLET PO (08:09)
--- NOTE | 2024-07-19 10:52 | XR_ITS ---
Examination: AP chest single view Technique: AP portable semiupright chest single view Exam date and time: July 19, 2024 1127 hrs. Indications: Coughing COPD exacerbation today. Findings: Normal heart size No pneumonia or pulmonary edema Moderate osteopenia Impression: No pneumonia or pulmonary edema
--- NOTE | 2024-07-19 15:53 | PD.RESPRO ---
Documentation for date of: 07/19/24 Subjective Subjective Interval history: Patient was seen and examined at bedside. No acute overnight events. Patient reports his breathing slightly better. On physical examination he does not have any wheezing. However patient has labored breathing and still reports his breathing is not baseline. He saturates 95% on 2 L NC. Will continue current management and monitor patient possible discharge tomorrow, patient will need home oxygen. Exam Vital Signs Temp Pulse Resp BP Pulse Ox O2 Del Method O2 Flow Rate 98.0 F 95 18 123/80 96 Nasal Cannula 1 07/19/24 12:00 07/19/24 14:56 07/19/24 14:56 07/19/24 12:00 07/19/24 14:56 07/19/24 12:00 07/19/24 14:56 Narrative Exam Gen: Well-developed and well-nourished. HEENT: NCAT, PERRLA, EOMI, MMM, anicteric conjunctivae. CVS: normal S1 and S2. RRR. No M/R/G. Resp: Decreased breath sounds B/L. No rhonchi, rales, crackles or wheezing. Abd: soft, non-tender, non-distended. BS+ in all 4 quadrants. MSK: Good ROM in BUE & BLE. No edema or rash. Neuro: CN II-XII grossly intact. Strength 5/5 in BUE & BLE. Alert and oriented x3. Psych: appropriate mood and affect. Objective Labs 07/20/24 05:06 07/20/24 05:06 Labs: Laboratory Results - last 24 hr 07/19/24 04:25 WBC 11.4 H RBC 4.45 L Hgb 14.5 Hct 41.4 MCV 93 MCH 32.6 MCHC 35.0 RDW Std Deviation 39.9 Plt Count 257 Neut % (Auto) 92 H Lymph % (Auto) 5 L [place] % (Auto) 3 Eos % (Auto) 0 Baso % (Auto) 0 Neut # (Auto) 10.5 H Lymph # (Auto) 0.5 L [place] # (Auto) 0.3 Eos # (Auto) 0.0 Baso # (Auto) 0.0 Immature Gran # (Auto) 0.03 H Absolute Nucleated RBC 0.00 Immature Gran % 0 Nucleated RBC % 0 Sodium 134 L Potassium 4.0 Chloride 102 Carbon Dioxide 25.3 Anion Gap 7 BUN 13 Creatinine 0.7 Estim Creat Clear Calc 102.4 eGFR > 60 BUN/Creatinine Ratio 19 Glucose 156 H Calculated Osmolality 271 L Calcium 9.4 Quality Measures Quality Measures VTE prophylaxis Advance care planning discussed with:: patient Assessment & Plan Assessment Current Active Medications: Generic Name Dose Route Start Last Admin Trade Name Freq PRN Reason Stop Dose Admin Acetaminophen 650 mg 07/16/24 23:03 Acetaminophen 325 Mg Tablet PO 08/15/24 23:02 Q6H PRN PAIN OR FEVER > 101 Albuterol/Ipratropium 3 ml 07/17/24 15:00 07/19/24 14:55 Albuterol/Ipratropium (Duoneb) Rt Catrina 3 Ml Nebu INH 08/16/24 14:59 3 ml Q4HRRT ANTONI Administration Amlodipine Besylate 10 mg 07/17/24 09:00 07/19/24 08:09 Amlodipine Besylate 5 Mg Tablet PO 08/16/24 08:59 10 mg QDAY ANTONI Administration Azithromycin 250 mg 07/17/24 21:00 07/18/24 20:21 Azithromycin 250 Mg Tablet PO 07/24/24 20:59 250 mg DAILY@2100 ANTONI Administration Guaifenesin/Dextromethorphan 1 each 07/16/24 23:05 Guaifenesin/Dm Tablet PO 08/15/24 23:04 Q4HR PRN COUGH Heparin Sodium (Porcine) 5,000 unit 07/17/24 09:00 07/19/24 08:08 Heparin Sod Inj 5000 Unit/Ml Vial SC 07/31/24 08:59 5,000 unit Q12HR ANTONI Administration Methylprednisolone Sodium Succinate 40 mg 07/17/24 21:00 07/19/24 08:08 Methylprednisolone Sod Succ 62.5 Mg/Ml 2ml Vial IVP 07/24/24 20:59 40 mg BID ANTONI Administration Nicotine 14 mg 07/16/24 23:05 Nicotine Patch 14 Mg/24 Hr Patch.Td24 TOP 08/16/24 08:59 QDAY PRN SMOKING CESSATION Ondansetron HCl 4 mg 07/16/24 23:03 Ondansetron Inj 2 Mg/Ml Inj 2 Ml IV 08/15/24 23:02 Q6H PRN NAUSEA OR VOMITING Protocol Pantoprazole Sodium 40 mg 07/17/24 09:00 07/19/24 08:09 Pantoprazole 40 Mg Tablet PO 08/16/24 08:59 40 mg QDAY ANTONI Administration Sodium Chloride 3 ml 07/16/24 21:33 07/16/24 21:39 Sodium Chloride Rt Catrina 0.9% 3 Ml Nebu INH 08/15/24 21:32 3 ml PRN PRN Administration SOLN Plan 69-year-old male with past medical history of COPD and hypertension was admitted to the hospital on 07/16/2024 due to acute hypoxic respiratory failure secondary to COPD exacerbation. #Acute hypoxic respiratory failure. #Acute COPD exacerbation. #Hx of tobacco abuse. ?Patient came in with shortness of breath and worsening cough. ?Patient mentioned he had not been using his inhaler as he ran out. ?Patient has some wheezing today bilateral. ?Patient is currently on nasal cannula 1 L. Plan: ?Continue azithromycin [ 07/16/2024? ]. ?continue IV Solu-Medrol twice daily. ?Albuterol/ipratropium every 4 hours scheduled. ?Will continue to monitor. -will need home oxygen on d/c. #Leukocytosis. -Likely reactive due to Solu-Medrol use. #Asymptomatic bacteriuria. ? UA was positive for bacteria, but patient does not have any symptoms therefore it will not be placed on antibiotics. #Hx of hypertension. ?Continue amlodipine 10 mg daily. Disposition: Patient Seen in ED, continue steroids and albuterol/ipratropium. Diet: Regular. GI prophylaxis: protonix. DVT prophylaxis: Heparin Sc. Code:Full code. Plan of care discussed with attending Dr. Kuhn. Chao Ceedno MD, PGY 2. Disclaimer: This note was dictated by speech recognition. Minor errors in film printer may be present due to voice recognition software. Attending Provider Attestation/Addendum Patient was admitted for COPD exacerbation complaints of shortness of breath cough, symptoms at rest. He is afebrile. He denies chest pain no palpitations. He has no altered mental status this. Continue current treatment with bronchodilators and steroid. Discussed with housestaff
[2024-07-19] MEDS: AZITHROMYCIN 250 MG TABLET PO (20:45)
[2024-07-20] VITALS (7 sets, daily range): BP systolic 130–146; BP diastolic 72–84; PULSE 72–95; RESP 18–20; TEMP 36.8–36.9; O2SAT 90–97
[2024-07-20] MEDS: ALBUTEROL/IPRATROPIUM (Duoneb) RT SOL 3 ML NEBU INH ×3 (03:01→10:46)
[2024-07-20 05:56] LABS: Basophils % (Auto) 0 % (0-2.5); Eosinophils % (Auto) 0 % (0-10); Hematocrit 42.8 % (41.0-53.0); Hemoglobin 14.5 g/dL (13.5-16.0); Immature Granulocytes % (Auto) 1 % (0-0); Immature Granulocytes Auto 0.07 Thou/mm3 (0.00-0.00); Lymphocytes # (Auto) 0.7 Thou/mm3 (1.0-4.8); Lymphocytes % (Auto) 8 % (10-50); Mean Corpuscular HGB Conc 33.9 g/dl (31.0-37.0); Mean Corpuscular Hemoglobin 32.4 pg (25.0-35.0); Mean Corpuscular Volume 96 fL (80-100); Monocytes # (Auto) 0.5 Thou/mm3 (0.0-0.8); Monocytes % (Auto) 5 % (0-12); Neutrophils # (Auto) 7.6 Thou/mm3 (1.8-7.7); Neutrophils % (Auto) 85 % (37-80); Nucleated Red Blood Cell % 0 /100 WBC (0); Platelet Count 245 Thou/mm3 (140-440); RDW Standard Deviation 40.9 fL (35.1-43.9); Red Blood Count 4.47 Miln/mm3 (4.50-5.90); White Blood Count 8.9 Thou/mm3 (3.8-10.6)
[2024-07-20 06:44] LABS: Alanine Aminotransferase 21 U/L (10-49); Albumin, Serum 4.3 gm/dL (3.4-4.8); Albumin/Globulin Ratio 1.8 (1.2-2.2); Alkaline Phosphatase 70 U/L (46-116); Anion Gap 6 (7-16); BUN/Creatinine Ratio 16 Ratio (12-20); Bilirubin,Total 0.4 mg/dL (0.3-1.2); Blood Urea Nitrogen 13 mg/dL (9-23); Calcium 9.3 mg/dL (8.3-10.6); Calcium (Corrected) 9.3 mg/dL (8.5-10.1); Carbon Dioxide 26.8 mMol/L (20.0-31.0); Chloride 101 mMol/L (98-107); Creatinine (Component) 0.8 mg/dL (0.6-1.3); Estimated Creatinine Clearance 89.6 mL/min (>60); Globulin 2.4 gm/dL (2.3-3.5); Glucose 132 mg/dL (74-106); Osmolality,Calculated 270 (275-295); Potassium 4.3 mMol/L (3.4-5.1); Sodium 134 mMol/L (136-145); Total Protein 6.7 gm/dL (5.7-8.2); eGFR > 60 See Note
[2024-07-20 06:51] LABS: Aspartate Amino Transferase 16 U/L (0-34)
[2024-07-20] MEDS: PANTOPRAZOLE 40 MG TABLET PO (08:51)
[2024-07-20] MEDS: amLODIPine BESYLATE 5 MG TABLET 10 MG PO (08:51)
[2024-07-20] MEDS: HEPARIN SOD INJ 5000 UNIT/ML VIAL SC (08:51)
--- NOTE | 2024-07-20 09:34 | PC.SS ---
SS was informed by Dr. Kennedy that patient will be needing Home 02. SS contacted patient's nurse Chavez and informed him patient needed 02 testing in order for SS to submit referral.
--- NOTE | 2024-07-20 09:44 | PC.NURSE ---
this nurse conducted oxygen test, pt spo2 at 96 on 1L NC while resting, while on room air pt spo2 93% while exercising, pt placed back on oxygen at 1L NC and spo2 95%, pt tolerating well.
--- NOTE | 2024-07-20 12:54 | ESDS_ITS ---
Planned Discharge Date 07/20/24 DS: Providers Provider Date of admission: 07/16/24 22:59 Primary care physician: Sanchez Saini PA-C Admitting Provider: Rip Bolton MD Attending Provider on Admission: Maximiliano Kuhn MD Consults: 07/17/24 15:52 [facility] Referral - Knowledge Deficit Routine Comment: Positive screening for knowledge deficit needs. Attending Provider on DC: Kin Matthew MD Discharging Provider: Kin Matthew MD DS: Diagnosis Problem List Completed Was Problem List Reviewed/Reconciled?: Yes Hospital Course Hospital Course Hospital course: 69-year-old male with past medical history of COPD and hypertension was admitted to the hospital on 07/16/2024 due to acute hypoxic respiratory failure secondary to COPD exacerbation. In the ED patient came in with complaints of shortness of breath and worsening cough. Initially was tachypneic, afebrile, and mildly hypertensive. Initial labs were unremarkable except for UA which was positive for bacteria and initial imaging showed no pneumonia on chest x-ray and repeat chest x-ray during hospital course did not show any pneumonia or active disease. During the patient's hospital course he was placed on DuoNebs, azithromycin, and IV steroids. Given the patient's bacteria was asymptomatic he did not require any treatment with antibiotics. He did develop some mild leukocytosis which was most likely reactive secondary to steroids. Patient remained stable with improvement in his breathing and saturation. On ambulation test he was saturating well without oxygen therefore he did not qualify 5 home oxygen at this time. At the time of discharge patient was stable enough to be discharged home. Discharge plan: -Please follow up with PCP in 7 days -Please take azithromycin 250 mg daily for 2 more days -You were started on prednisone please follow taper instructions -Please take home inhalers as prescribed -Would benefit from referral to [facility] as an out-patient -Please return to the ER if symptoms persist or worsen Problem list: #Acute hypoxic respiratory failure. #Acute COPD exacerbation. #Leukocytosis #Asymptomatic bacteriuria #Hx of tobacco use #Hx of hypertension Case disclosed with Attending Dr. Vipul Peña PGY1 Status at Discharge Overall status at discharge: patient is progressing back to baseline Time Spent with Patient Time attestation: Total time spent providing and/or coordinating discharge services:> 35 min Exam Vital Signs Temp Pulse Resp BP Pulse Ox O2 Del Method O2 Flow Rate 98.2 F 95 18 146/80 H 97 Room Air 1 07/20/24 08:00 07/20/24 10:47 07/20/24 10:47 07/20/24 08:51 07/20/24 10:47 07/20/24 08:00 07/20/24 10:47 Narrative Exam General: A/O x3, no acute distress Eyes: PERRL, EOMI. Anicteric, vision grossly intact. Ears: No ear pain, no ear discharge, Hearing grossly intact. Nose: No nasal discharge. Mouth/Throat: Dry mucous membranes, no redness, no lesions. Neck: Neck supple, non-tender, no cervical lymphadenopathy. Lungs: Clear MAHOGANY, No accessory muscle use. Cardio: Normal S1/S2, regular rhythm, no murmurs, no JVD. Abdomen: Soft, non-tender, no palpable masses, peristalsis present, no guarding or rebound. Extremities: Symmetrical, no significant deformities, no peripheral edema , non-tender, peripheral pulses presents. Skin: No rashes, no lesions, warm to touch. Neuro: No focal neurological deficits. motor and sensory intact Psych: Cooperative, appropriate mood and effect. Discharge Plan Plan Patient Disposition: HOME (Self Care) Patient condition on transfer: Stable Prescriptions/Referrals Prescriptions/Med Rec: New azithromycin 250 mg Tablet 250 mg PO DAILY@2100 2 Days Qty: 2 0RF prednisone 10 mg tablet See Taper PO QDAY Qty: 30 0RF Taper: Prednisone Taper 40 mg DAILY for 3 Days and 0 Hour 30 mg DAILY for 3 Days and 0 Hour 20 mg DAILY for 3 Days and 0 Hour 10 mg DAILY for 3 Days and 0 Hour fluticasone propion-salmeterol 250-50 mcg/dose blister with device 1 inh inhalation BID Qty: 60 2RF albuterol sulfate [Ventolin HFA] 90 mcg/actuation HFA aerosol inhaler 2 puff inhalation QID PRN (Reason: shortness of breath or wheezing) Qty: 6.7 2RF Continued albuterol sulfate 90 mcg/actuation Hfa Aerosol Inhaler 2 puff INHALATION Q4H PRN (Reason: SOB ) fluticasone propion-salmeterol 55-14 mcg/actuation aerosol powdr breath activated 1 inh inhalation BID Qty: 1 0RF nicotine 21 mg/24 hr patch 24 hour 21 mg topical QDAY Qty: 28 0RF amlodipine 10 mg tablet 10 mg PO QDAY 30 Days Qty: 30 0RF No Action prednisone 10 mg tablets,dose pack 10 mg PO QDAY Qty: 21 0RF Referrals: Sanchez Saini PA-C [Primary Care Provider] - Patient/Caregiver Discharge Instructions Other Discharge Activity Instructions:: -Please follow up with PCP in 7 days -Please take azithromycin 250 mg daily for 2 more days -You were started on prednisone please follow taper instructions -Please take home inhalers as prescribed -Would benefit from referral to [facility] as an out-patient -Please return to the ER if symptoms persist or worsen Education Materials: Discharge Instructions: COPD, COPD: Using Inhalers Print Language: Divehi Stand Alone Forms: Yuli Award Info., Patient Portal Info Letter Discharge Order Discharge Orders: Discharge (Routine); Ordered 07/20/24 Ordered By: Preston Lobo Quality Discharge Quality Measures VTE prophylaxis Attestestation MD Attestation I have examined the patient, reviewed labs and imaging findings, discussed the case with the resident(s), and reviewed entered orders. I agree with the plan of care as outlined in this note. Dr. Matthew
== END 2024-07-20 11:55 | disposition home or self-care (01) | DRG 190 ==
LOC: SERX 22:38 → SERHOLD 07-17 00:27 → S3NX 07-17 15:15
PROVIDERS: Registered Nurse General Practice; Student in an Organized Health Care Education/Training Program; Admitting Provider Student in an Organized Health Care Education/Training Program; Emergency Provider Emergency Medicine; PCP Physician Assistant Medical; Visit Provider Internal Medicine
DX: J44.1 Chronic obstructive pulmonary disease with (acute) exacerbation (principal); J96.01 Acute respiratory failure with hypoxia; I10 Essential (primary) hypertension; T48.6X6A Underdosing of antiasthmatics, initial encounter; Z91.128 Patient's intentional underdosing of medication regimen for other reason; R82.71 Bacteriuria; D72.828 Other elevated white blood cell count; T38.0X5A Adverse effect of glucocorticoids and synthetic analogues, initial encounter; Z87.891 Personal history of nicotine dependence; Z79.899 Other long term (current) drug therapy; Z79.51 Long term (current) use of inhaled steroids; Z79.52 Long term (current) use of systemic steroids; Y92.230 Patient room in hospital as the place of occurrence of the external cause
CPT/HCPCS: 36415; 71045; 80048; 80053; 80061; 80307; 81001; 83615; 83735; 83880; 84100; 84484; 85025; 85610; 85730; 87081; 87400; 87811; 94640; 94644; 96372; 96374; 99285; A9270; J1643; J2919; J3475; J7512; J1644

== ENCOUNTER 2025-06-24 17:20 | Emergency (ER) | payer OTHER, SELFPAY ==
--- NOTE | 2025-06-24 17:25 | EKG_ITS ---
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
[2025-06-24 17:28] VITALS: BP 186/105; PULSE 87; PULSE 91; RESP 26; TEMP 36.5; O2SAT 92; O2SAT 98; BMI 23.5
--- NOTE | 2025-06-24 18:10 | XR_ITS ---
EXAMINATION: AP chest single view TECHNIQUE: AP portable sitting chest single view Date and time: June 24, 2025, 1823 hours INDICATIONS: Shortness of breath today. FINDINGS: Normal heart size Accentuation of bronchovascular markings. No lobar pneumonia or pulmonary edema IMPRESSION: Bronchitis pattern
[2025-06-24] MEDS: KETOROLAC INJ 30 MG/ML VIAL 15 MG IVP ×2 (18:21→20:32)
[2025-06-24] MEDS: MethylPREDNISolone SOD SUCC 62.5 MG/ML 2ML VIAL 125 MG IVP (18:23)
[2025-06-24] MEDS: SODIUM CHLORIDE 0.9% 1000 ML 1,000 ML 125 ML IV (18:24)
[2025-06-24] MEDS: cefTRIAXone/D5w 1gm IV premix 1 GM/50 ML BAG IV (18:25)
--- NOTE | 2025-06-24 18:28 | PC.NURSE ---
CALLED RT AT THIS TIME AND MADE AWARE PT NEEDS A BREATHING TREATMENT; PER RT, WILL SEND ANOTHER RT DOWN FOR ED.
[2025-06-24 18:44] VITALS: BP 177/93; PULSE 74; RESP 22; TEMP 36.8; O2SAT 98
--- NOTE | 2025-06-24 18:45 | EDNOTE_ITS ---
ED General RME/HPI General Chief complaint: Shortness of Breath/Dyspnea Stated complaint: SOB Time Seen by Provider: 06/24/25 18:10 Arrival date/time: 06/24/25 17:20 CC: Cough shortness of breath HPI ongoing for the past 5 days. Patient denies fever but states he uses 2 L of oxygen on nasal cannula in the past 5 days he is wanted to turn up but has not. Patient admits to smoking 4 cigarettes a day, drinks 5 cans of beer there patient has no prior history of episodes like this. No other family members are ill. Patient is awake alert in mild discomfort but not in any acute distress. Denies chest pain nausea vomiting diarrhea. Related Data Home Medications ?Medication ?Instructions ?Recorded ?Confirmed albuterol sulfate 90 mcg/actuation 2 puff inhalation Q 4H PRN SOB 06/23/24 06/23/24 aerosol inhaler Previous Rx's ?Medication ?Instructions ?Recorded fluticasone 55 mcg-salmeterol 14 1 inh inhalation BID #1 ea 06/23/24 mcg/actuation breath activated powder prednisone 10 mg tablets in a dose 10 mg PO QDAY #21 t abs 06/23/24 pack nicotine 21 mg/24 hr daily 21 mg topical QDAY #28 ea 1 08/24/23 transdermal patch albuterol sulfate 90 mcg/actuation 2 puff inhalation Q ID PRN 07/20/24 aerosol inhaler (Ventolin HFA) shortness of breath or wheezing #6.7 grams fluticasone 250 mcg-salmeterol 50 1 inh inhalation BID COPD #60 ea 07/20/24 mcg/dose blistr powdr for inhalation prednisone 10 mg tablet See Taper PO QDAY #30 tabs 1 09/19/23 doxycycline hyclate 100 mg capsule 100 mg PO QDAY #14 caps 06/24/25 meloxicam 7.5 mg tablet 7.5 mg PO QDAY #10 tabs 1111/13 prednisone 20 mg tablet See Taper PO BID 3 days #6 t abs 06/24/25 Allergies Allergy/AdvReac Type Severity Reaction Status Date / Time No Known Allergies Allergy Verified 06/24/25 17:28 Review of Systems Review of Systems Narrative Review of Systems: GEN: No fever, no chills, no weight loss EYES: No discharge, no visual changes, no pain HEENT: No ear pain, no congestion, no sore throat PULM: + shortness of breath, + cough, no congestion CV: No chest pain, no dyspnea on exertion, no palpitations GI: No nausea, no vomiting, no diarrhea, no pain, no constipation : No frequency, no urgency, no dysuria MUSC/SKEL: No joint pain, no back pain SKIN: No rash PSYCH: No hallucinations, no depression HEME/LYMPH: No easy bleeding or bruising tendencies NEURO: No weakness, no headache Past Medical History Past Medical History CARDIAC: Positive Hypertension; Negative Cardiac Disorders or Congestive Heart Failure RESPIRATORY: Positive Chronic Obstructive Pulmonary Disease (COPD); Negative Asthma GENITOURINARY: Negative Renal Disease ENDOCRINE: Negative Diabetes Mellitus Type 1 or Diabetes Mellitus Type 2 HEMATOLOGIC: Negative Sickle Cell Disease OTHER HISTORY: Positive Hospitalization Social History SMOKING STATUS: Light (< 1 pack/day) ED Exam Narrative Physical exam: [General: In mild discomfort but not in any acute distress Head normocephalic HEENT: Eyes pupils are PERRLA EOMs are intact mouth pink moist membranes uvula is midline swallow symmetrical phonation is normal. All the subsystems of HEENT are within acceptable limits Neck is supple nontender no JVD no edema Chest equal chest rise nontender to palpation Respiratory: Coarse breath sounds throughout end expiratory crackles. CV: Rate rhythm is regular, intermittent tachycardia, no murmurs rubs or clicks Abdomen is soft nontender no masses positive bowel sounds all 4 quadrants Back: No CVA tenderness no spinous process tenderness from cervical spine thoracic and lumbar spine Skin: Intact no petechiae rash induration ulceration or crepitus Extremities: Moving all extremity against resistance cap refill less than 2 seconds neurosensory intact Neuro: Awake alert oriented x3 Glascow coma 15 no focal deficits] Course Course Course Narrative: Patient now satting comfortably 92 to 93% on 2 L nasal, which is baseline. The patient is informed that after 7 months of abstinence from smoking and drinking he restarted and this triggered this event. Patient states his breathing is significant improved he is now complaining of left lower quadrant abdominal pain but no cough fever chills or chest pain. Quality Measures none Orders Category Date Time Status EKG (ED ONLY) *Do not use* NOW Care 06/24/25 17:25 Completed Saline [Insert IV] NOW Care 06/24/25 18:11 Completed EKG (ED Only) Stat Exams 06/24/25 17:25 Draft XR chest 1V Stat Exams 06/24/25 18:10 Completed Alcohol, Blood Medical Stat Lab 06/24/25 18:30 Completed B-Type Natriuretic Peptide Stat Lab 06/24/25 18:30 Completed CBC Stat Lab 06/24/25 18:30 Completed Comprehensive Metabolic Panel Stat Lab 06/24/25 18:30 Completed Drug Screen,Urine Stat Lab 06/24/25 18:53 Completed LDH (Lactate Dehydrogenase) Stat Lab 06/24/25 18:30 Completed Magnesium Stat Lab 06/24/25 18:30 Completed Partial Thromboplastin Time Stat Lab 06/24/25 18:30 Completed Prothrombin Time with INR Stat Lab 06/24/25 18:30 Completed Troponin I Stat Lab 06/24/25 18:30 Completed Urinalysis, C/S if Indicated Stat Lab 06/24/25 18:53 Completed ALBUTEROL RT 3ml [Proventil Rt 3ml] Med 06/24/25 18:11 Discontinued 10 mg INH X1 ONE Ketorolac Inj [Toradol Inj] Med 06/24/25 18:15 Discontinued 15 mg IVP X1 ONE Ketorolac Inj [Toradol Inj] Med 06/24/25 20:28 Discontinued 15 mg IVP X1 ONE MethylPREDNISolone.* [SoluMEDROL Inj] Med 06/24/25 18:11 Discontinued 125 mg IVP X1 ONE Sodium Chloride 0.9% 1000 ml [Ns] 1,000 ml Med 06/24/25 18:11 Active IV 125 mls/hr cefTRIAXone/D5w 1gm IV premix [Rocephin/D5w 1gm IV Med 06/24/25 18:13 Discontinued premix] 1 gm in 50 ml IV X1 Vital Signs Vital signs: Vital Signs Temperature 97.7 F 06/24/25 17:28 Pulse Rate 87 06/24/25 17:28 Respiratory Rate 26 H 06/24/25 17:28 Blood Pressure 186/105 H 06/24/25 17:28 Pulse Oximetry (%) 92 L 06/24/25 17:28 Oxygen Delivery Method Room Air 06/24/25 17:28 Discharge Plan Plan Patient Disposition: HOME (Self Care) Patient condition on transfer: Stable Prescriptions/Referrals Prescriptions/Med Rec: New prednisone 20 mg tablet See Taper PO BID 3 Days Qty: 6 0RF Taper: Prednisone Taper 20 mg DAILY for 2 Days and 0 Hour 10 mg DAILY for 2 Days and 0 Hour 5 mg DAILY for 7 Days and 0 Hour doxycycline hyclate 100 mg capsule 100 mg PO QDAY Qty: 14 0RF meloxicam 7.5 mg tablet 7.5 mg PO QDAY Qty: 10 0RF No Action albuterol sulfate 90 mcg/actuation Hfa Aerosol Inhaler 2 puff INHALATION Q4H PRN (Reason: SOB ) fluticasone propion-salmeterol 55-14 mcg/actuation aerosol powdr breath activated 1 inh inhalation BID Qty: 1 0RF prednisone 10 mg tablets,dose pack 10 mg PO QDAY Qty: 21 0RF nicotine 21 mg/24 hr patch 24 hour 21 mg topical QDAY Qty: 28 0RF prednisone 10 mg tablet See Taper PO QDAY Qty: 30 0RF Taper: Prednisone Taper 40 mg DAILY for 3 Days and 0 Hour 30 mg DAILY for 3 Days and 0 Hour 20 mg DAILY for 3 Days and 0 Hour 10 mg DAILY for 3 Days and 0 Hour fluticasone propion-salmeterol 250-50 mcg/dose blister with device 1 inh inhalation BID Qty: 60 2RF albuterol sulfate [Ventolin HFA] 90 mcg/actuation HFA aerosol inhaler 2 puff inhalation QID PRN (Reason: shortness of breath or wheezing) Qty: 6.7 2RF Referrals: Quynh Russell MD [Primary Care Provider] - In 1 week Problem List Clinical Impression: COPD (chronic obstructive pulmonary disease), Abdominal pain, acute, right upper quadrant Patient/Caregiver Discharge Instructions Other Activity Instructions:: Take the manic medications as prescribed with is worsening of symptoms in spite of this follow-up with your primary care doctor or return the emergency room for reevaluation. Rest drink plenty of fluids avoid smoking and alcohol use your oxygen at 2 L nasal cannula. Education Materials: Abdominal Pain, Discharge Instructions: COPD Print Language: [place] Stand Alone Forms: Yuli Award Info., Patient Portal Info Letter, Work/School Release JUN/[employer] Supervising Physician JUN/[employer] Supervising Physician: Phani Brenner ENP [facility] Clinical Information Provided by: patient Medical Records reviewed [facility] Meds/Rx considered, not ordered None Labs/Rad/Tests considered, not ordered None Chronic Illness/Social Conditions Explain: COPD alcoholism EKG Interpretation EKG #1: EKG Interpretation: EKG performed at 1726 shows a ventricular rate of 84 [place] interval 165 QRS of 102 QTc of 4 1 this normal sinus rhythm incomplete right bundle branch block significant baseline artifact in aVL aVF leads I and aVR. No baseline wander. Labs Labs: interpreted by nd Lab(s) Interpretation(s): CBC shows no acute leukocytosis anemia thrombocytopenia Coags within excepted limits CMP shows a sodium 134 no other significant electrolyte imbalances renal impairment transaminitis or T. bili elevation Troponin is within acceptable limits BNP is within excepted limits Urine shows 1+ protein no other signs of infection UDS is negative Imaging Imaging interpretation: interpreted by nd Imaging Interpretation(s): Chest x-ray shows a bronchitis pattern. Medication Administration(s) Medication Administration History Sodium Chloride (Ns) 1,000 mls @ 125 mls/hr IV .Q8H ANTONI Stop: 07/24/25 18:10 Last Admin: 06/24/25 18:24 Dose: 125 mls/hr Documented By: ALISHA Discontinued Medications Albuterol (Albuterol Rt 2.5 Mg/3 Ml Nebu) 10 mg INH X1 ONE Stop: 06/24/25 18:12 Last Admin: 06/24/25 18:57 Dose: 10 mg Documented By: LETTY Ceftriaxone Sodium/Dextrose (Rocephin/D5w 1gm Iv Premix) 1 gm in 50 mls @ 100 mls/hr IV X1 ONE Stop: 06/24/25 18:42 Last Infusion: 06/24/25 19:45 Dose: Infused Documented By: Admin: 06/24/25 18:25 Dose: 100 mls/hr Documented By: GM Ketorolac Tromethamine (Ketorolac Inj 30 Mg/Ml Vial) 15 mg IVP X1 ONE Stop: 06/24/25 18:16 Last Admin: 06/24/25 18:21 Dose: 15 mg Documented By: GM Ketorolac Tromethamine (Ketorolac Inj 30 Mg/Ml Vial) 15 mg IVP X1 ONE Stop: 06/24/25 20:29 Last Admin: 06/24/25 20:32 Dose: 15 mg Documented By: CARLOS Methylprednisolone Sodium Succinate (Methylprednisolone Sod Succ 62.5 Mg/Ml 2ml Vial) 125 mg IVP X1 ONE Stop: 06/24/25 18:12 Last Admin: 06/24/25 18:23 Dose: 125 mg Documented By: ALISHA
[2025-06-24 18:57] VITALS: PULSE 76; PULSE 93; RESP 22; O2SAT 95
[2025-06-24] MEDS: ALBUTEROL RT 2.5 MG/3 ML NEBU 10 MG INH (18:57)
[2025-06-24 19:02] LABS: Basophils # (Auto) 0.1 Thou/mm3 (0.0-0.2); Basophils % (Auto) 1 % (0-2.5); Eosinophils # (Auto) 0.9 Thou/mm3 (0.0-0.5); Eosinophils % (Auto) 10 % (0-10); Hematocrit 45.7 % (41.0-53.0); Hemoglobin 16.0 g/dL (13.5-16.0); Immature Granulocytes Auto 0.06 Thou/mm3 (0.00-0.00); Lymphocytes # (Auto) 2.4 Thou/mm3 (1.0-4.8); Lymphocytes % (Auto) 24 % (10-50); Mean Corpuscular HGB Conc 35.0 g/dl (31.0-37.0); Mean Corpuscular Hemoglobin 33.2 pg (25.0-35.0); Mean Corpuscular Volume 95 fL (80-100); Monocytes # (Auto) 1.1 Thou/mm3 (0.0-0.8); Monocytes % (Auto) 11 % (0-12); Neutrophils # (Auto) 5.3 Thou/mm3 (1.8-7.7); Neutrophils % (Auto) 54 % (37-80); Nucleated Red Blood Cell # 0.00 Thou/mm3 (0.00-0.00); Nucleated Red Blood Cell % 0 /100 WBC (0); Platelet Count 232 Thou/mm3 (140-440); RDW Standard Deviation 40.4 fL (35.1-43.9); Red Blood Count 4.82 Miln/mm3 (4.50-5.90); White Blood Count 9.9 Thou/mm3 (3.8-10.6)
[2025-06-24 19:05] LABS: Collection Type, Urine Clean Catch
[2025-06-24 19:11] LABS: Bilirubin,Urine Negative (Negative); Blood,Urine Negative (Negative); Clarity,Urine Clear (Clear/Hazy); Color,Urine Lt-Yellow (Lt Yel-Yel); Culture Indicated,Urine Not Indicated; Glucose, Urine Negative (Negative); Ketones,Urine Negative (Negative); Leukocyte Esterase,Urine Negative (Negative); Nitrite,Urine Negative (Negative); PH,Urine 6.0 (5.0-7.0); Protein,Urine 1+ (Neg - Trace); RBC,Urine 2 /hpf (0-3); Specific Gravity,Urine 1.009 (1.001-1.035); Squamous Epithelial Cell,Urine < 1 /hpf (0-5); Urobilinogen,Urine Negative mg/dL (0.0-1.0); WBC,Urine 1 /hpf (0-5)
[2025-06-24 19:20] LABS: Amphetamine/Methamp Scrn,U Negative (Negative); Barbiturate Screen,Urine Negative (Negative); Benzodiazepines Screen,Urine Negative (Negative); Benzoylecgonine Screen, Ur Negative (Negative); Fentanyl Screen,Urine Negative (Negative); Opiate Screen,Urine Negative (Negative); THC Screen,Urine Negative (Negative)
[2025-06-24 19:24] LABS: INR 1.0 (0.9-1.3); Partial Thromboplastin Time 22.6 Seconds (22.0-36.0); Prothrombin Time 10.2 Seconds (9.0-12.2)
[2025-06-24 19:32] LABS: Alanine Aminotransferase 37 U/L (10-49); Albumin, Serum 4.7 gm/dL (3.4-4.8); Albumin/Globulin Ratio 2.0 (1.2-2.2); Alcohol, Blood Medical < 3.0 mg/dL (0-10.0); Alkaline Phosphatase 93 U/L (46-116); Anion Gap 10 (7-16); Aspartate Amino Transferase 43 U/L (0-34); BUN/Creatinine Ratio 7 Ratio (12-20); Bilirubin,Total 0.4 mg/dL (0.3-1.2); Blood Urea Nitrogen 5 mg/dL (9-23); Calcium 9.6 mg/dL (8.3-10.6); Calcium (Corrected) 9.6 mg/dL (8.5-10.1); Carbon Dioxide 23.8 mMol/L (20.0-31.0); Chloride 100 mMol/L (98-107); Creatinine (Component) 0.7 mg/dL (0.6-1.3); Estimated Creatinine Clearance 101.0 mL/min (>60); Globulin 2.4 gm/dL (2.3-3.5); Glucose 103 mg/dL (74-106); LDH (Lactate Dehydrogenase) 204 U/L (120-246); Magnesium 2.0 mg/dL (1.6-2.6); Osmolality,Calculated 265 (275-295); Potassium 4.4 mMol/L (3.4-5.1); Sodium 134 mMol/L (136-145); Total Protein 7.1 gm/dL (5.7-8.2); Troponin I < 0.020 ng/mL (0.0-0.045); eGFR > 60 See Note
[2025-06-24 19:35] LABS: B-Type Natriuretic Peptide < 20 pg/mL (0-100)
[2025-06-24 19:40] VITALS: BP 179/102; PULSE 86; RESP 20; TEMP 36.6; O2SAT 98
[2025-06-24 20:45] VITALS: BP 184/93; PULSE 96; RESP 21; TEMP 36.8; O2SAT 93
[2025-06-24 21:30] VITALS: BP 157/50; PULSE 99; RESP 20; TEMP 36.3; O2SAT 93
== END 2025-06-24 21:36 | disposition home or self-care (01) ==
PROVIDERS: Registered Nurse General Practice; Emergency Provider Emergency Medicine; PCP Obstetrics & Gynecology
DX: R10.11 Right upper quadrant pain (principal); J44.9 Chronic obstructive pulmonary disease, unspecified
CPT/HCPCS: 36415; 71045; 80053; 80307; 80320; 81001; 83615; 83735; 83880; 84484; 85025; 85610; 85730; 93005; 94644; 96365; 96375; 96376; 99284; J0696; J1885; J2919; J7030; G0480

== ENCOUNTER 2025-07-06 21:44 | Emergency (ER) | payer OTHER, SELFPAY ==
[2025-07-06 21:45] VITALS: PULSE 84; O2SAT 99; BMI 23.8
[2025-07-06 21:50] VITALS: BP 146/89; PULSE 83; RESP 23; TEMP 36.8; O2SAT 94
--- NOTE | 2025-07-06 21:56 | EKG_ITS ---
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
--- NOTE | 2025-07-06 22:19 | PD.EDSOB ---
ED SOB =RME/HPI General Chief Complaint: Shortness of Breath/Dyspnea Stated Complaint: SOB Time Seen by Provider: 07/06/25 22:01 Arrival date/time: 07/06/25 21:44 RME / HPI RME / HPI Narrative: Dr. Parker?[facility] Main ED Evaluation: 70 y/o male with Hx of COPD, smoking, and alcohol use presents to ED c/o painful productive cough, chest pain that radiates down to the RLQ, and mid back, and shortness of breath x approximately 20 days, worse since yesterday. Patient describes shortness of breath as drowning . Reports pain as constant, and much worse when coughing. Patient's last alcohol ingestion and tobacco use were also approximately 20 days ago. Patient is on 2L supplemental oxygen at home. Related Data Home oxygen amount: 2 liters Home Medications ?Medication ?Instructions ?Recorded ?Confirmed albuterol sulfate 90 mcg/actuation 2 puff inhalation Q4H PRN SOB 06/23/24 06/23/24 aerosol inhaler Previous Rx's ?Medication ?Instructions ?Recorded fluticasone 55 mcg-salmeterol 14 1 inh inhalation BID #1 ea 06/23/24 mcg/actuation breath activated powder prednisone 10 mg tablets in a dose 10 mg PO QDAY #21 tabs 06/23/24 pack nicotine 21 mg/24 hr daily 21 mg topical QDAY #28 ea 06/24/24 transdermal patch albuterol sulfate 90 mcg/actuation 2 puff inhalation QID PRN 07/20/24 aerosol inhaler (Ventolin HFA) shortness of breath or wheezing #6.7 grams fluticasone 250 mcg-salmeterol 50 1 inh inhalation BID COPD #60 ea 07/20/24 mcg/dose blistr powdr for inhalation prednisone 10 mg tablet See Taper PO QDAY #30 tabs 07/20/24 doxycycline hyclate 100 mg capsule 100 mg PO QDAY #14 caps 06/24/25 meloxicam 7.5 mg tablet 7.5 mg PO QDAY #10 tabs 06/24/25 aluminum-mag hydroxide-simethicone 15 ml PO QID PRN dyspepsia #3,000 07/07/25 200 mg-200 mg-20 mg/5 mL oral susp mL (Maalox Advanced) azithromycin 250 mg tablet See Rx Instructions PO .COMPLEX #6 07/07/25 (Zithromax Z-Jeremy) tabs famotidine 20 mg tablet (Pepcid) 20 mg PO QDAY 10 days #10 tabs 07/07/25 Allergies Allergy/AdvReac Type Severity Reaction Status Date / Time No Known Allergies Allergy Verified 07/06/25 21:45 Review of Systems Review of Systems Systems Reviewed: All systems reviewed, normal except as documented Past Medical History Past Medical History CARDIAC: Positive Hypertension RESPIRATORY: Positive Chronic Obstructive Pulmonary Disease (COPD) Social History SMOKING STATUS: Former smoker ED Exam Narrative Physical exam: GENERAL APPEARANCE: alert and oriented x 4, well-developed, well-nourished, no acute distress VITALS: All vitals were reviewed and the pulse ox is 94% on room air, which is low according to my interpretation. HEENT: Normocephalic, atraumatic; pupils equal, round, reactive to light; EOMI; mucous membranes pink, moist; oropharynx clear NECK: Supple LUNGS: Mildly course breath sounds BL, scattered wheezes throughout HEART: Regular rate, regular rhythm; normal S1, S2; no murmurs ABDOMEN: non distended; normal BS; soft, no tenderness, no guarding, no rebound; no masses, no organomegaly, no hernia BACK: no CVA tenderness EXTREMITIES: atraumatic; no edema NEUROLOGIC: awake; alert and oriented x4; cranial nerves II-XII grossly intact; no focal sensory or motor deficits PSYCHIATRIC: appropriate mood and affect SKIN: warm, dry, normal color; no rashes Course Quality Measures none Orders Category Date Time Status Bedside COVID-19 Antigen Test NOW Care 07/06/25 22:[address] Screening NOW Care 07/06/25 22:44 Completed [employer] NOW Care 07/06/25 22:30 Completed Continuous Pulse Oximetry NOW Care 07/06/25 22:29 Completed EKG (ED ONLY) *Do not use* NOW Care 07/06/25 21:56 Completed Insert IV NOW Care 07/06/25 22:13 Completed Insert IV NOW Care 07/06/25 22:[address] angio chest abdomen pelvis Stat Exams 07/06/25 22:43 Taken EKG (ED Only) Stat Exams 07/06/25 21:56 Draft XR chest 1V portable Stat Exams 07/06/25 22:29 Completed B-Type Natriuretic Peptide Stat Lab 07/06/25 22:10 Completed CBC Stat Lab 07/06/25 22:10 Completed Comprehensive Metabolic Panel Stat Lab 07/06/25 22:10 Completed Influenza A & B Rapid Panel Stat Lab 07/06/25 22:14 Completed Magnesium Stat Lab 07/06/25 22:10 Completed Troponin I Stat Lab 07/06/25 22:10 Completed ALBUTEROL RT 0.5ml [Proventil Rt 0.5ml] Med 07/06/25 23:33 Discontinued 2.5 mg INH X1 ONE Acetaminophen Tab [Tylenol ES Tab] Med 07/07/25 01:57 Discontinued 1,000 mg PO X1 ONE Albuterol/Ipratr Rt Catrina [Duoneb Rt Catrina] Med 07/06/25 22:29 Discontinued 3 ml INH X1 ONE Dexamethasone Inj [Decadron Inj] Med 07/06/25 22:29 Discontinued 10 mg PO X1 ONE Ibuprofen Tab [Motrin Tab] Med 07/07/25 01:57 Discontinued 600 mg PO X1 ONE Sodium Chloride 0.9% 1000 ml [Ns] 1,000 ml Med 07/06/25 22:29 Discontinued IV 999 mls/hr Sodium Chloride Rt Catrina 0.9% [NS Rt Catrina 0.9%] Med 07/06/25 23:33 Discontinued 3 ml INH PRN PRN Oxygen Delivery NOW RT 07/06/25 22:29 Completed Reevaluation(s) Reevaluation #1: On re-evaluation, found to have mildly course breaths sounds BL with minimal wheezing at the bases. Time: 23:55 Vital Signs Vital signs: Vital Signs Temperature 98.2 F 07/06/25 21:50 Pulse Rate 83 07/06/25 21:50 Respiratory Rate 23 H 07/06/25 21:50 Blood Pressure 146/89 H 07/06/25 21:50 Pulse Oximetry (%) 94 L 07/06/25 21:50 Shortness of Breath / Dyspnea MDM Narrative MDM Narrative:: Scribe Attestation: Samra Spear, am scribing for and in the presence of Dr. Parker. Provider Notation: Although this document has been carefully reviewed, there may still be some phonetic and other typographical errors. These errors are purely grammatical due to imperfections in the software program and should not be construed in any way to compromise the substance of the patient's medical care during this visit. Patient data External records reviewed:: [facility] previous records (Reviewed prior ED records from 06/24/25. Patient was seen for Abdominal pain, acute, right upper quadrant.) Clinical information provided by:: patient Social determinants that could affect healthcare access:: none Patient has the following chronic illnesses:: COPD, HTN How is presenting disease/condition affected by chronic disease/condition?: exacerbated by Evaluation data The following diagnostics were reviewed and interpreted by me:: EKG tracing(s) (EKG at 22:01 shows normal sinus rhythm at 80, normal axis, no ectopy, no signs of acute ischemia, per my interpretation.) Lab and/or radiology exams considered but not ordered:: None Interpretation Summary: RADIOLOGY Chest X-Ray: FINDINGS: Normal heart size Accentuation of the basilar bronchovascular markings. No lobar pneumonia or pulmonary edema Clavicles ribs appear intact IMPRESSION: Bronchitis pattern Chest/Abdomen/Pelvis CT: Findings: The thoracic aorta demonstrates mild atheromatous calcification without evidence of dissection or aneurysm. The origins of the right brachiocephalic, left common carotid, and left subclavian arteries are patent with mild atheromatous changes. The abdominal aorta demonstrates mild atheromatous calcification without evidence of dissection or aneurysm. There are mild atheromatous changes at the origin of the celiac, superior mesenteric, inferior mesenteric, and bilateral renal arteries without critical stenosis. There is a patent accessory left renal artery. The common iliac, external iliac, and internal iliac arteries are patent bilaterally with mild atheromatous changes; there is moderate stenosis of the proximal left superficial femoral artery (up to 60-70% narrowing on axial image 328/374). There is no filling defect in the central, lobar, and segmental pulmonary artery divisions to suggest pulmonary thromboembolism. Evaluation of the subsegmental pulmonary artery divisions is markedly limited due to motion artifact. Multiple mediastinal and hilar lymph nodes are noted, the largest measuring 1.8 x 1.2 cm in the right suprahilar region. There is no pericardial effusion. There is a thickened distal esophagus, which may be related to mild reflux esophagitis. Small patchy areas of consolidation are seen in the left lung base medially. Mild bilateral peribronchial soft tissue thickening is also noted. There are mild emphysematous changes, predominantly in the upper lobes bilaterally. There is no pleural effusion or pneumothorax. Mild fatty infiltration of the liver. Nonspecific perinephric fat stranding is noted bilaterally. The gallbladder, spleen, adrenals and pancreas are unremarkable. No evidence of bowel obstruction. A moderate amount of fecal material is seen in the colon. There are occasional colonic diverticula without evidence of diverticulitis. There is irregular urinary bladder wall thickening/edema with mild perivesical fat stranding (predominantly involving the anterior wall of the urinary bladder). Mild prostatomegaly is seen. There is no free fluid, free air, or abscess. There is diffuse osteopenia. Degenerative changes are seen in the spine. There is leftward scoliosis of the lumbar spine. Impression: 1. Mild atheromatous changes of the thoracic, abdominal aorta, and its branches without aneurysm, dissection, or critical stenosis. 2. Moderate stenosis of the proximal left superficial femoral artery (up to 60-70% narrowing). 3. Small patchy areas of consolidation in the left lung base medially, suspicious frontal pneumonitis. 4. Irregular thickening of the urinary bladder wall with mild perivesical fat stranding as described; suspicious for cystitis. 5. Other findings are as described above. Medications / Prescriptions Medications or Prescriptions considered but not ordered:: None Medication administrations:: Medication Administration History Discontinued Medications Acetaminophen (Acetaminophen 500 Mg Tablet) 1,000 mg PO X1 ONE Stop: 07/07/25 01:58 Last Admin: 07/07/25 02:01 Dose: 1,000 mg Documented By: SM Albuterol (Albuterol Rt 2.5 Mg/0.5 Ml Nebu) 2.5 mg INH X1 ONE Stop: 07/06/25 23:34 Last Admin: 07/07/25 00:01 Dose: 2.5 mg Documented By: NE Albuterol/Ipratropium (Albuterol/Ipratropium (Duoneb) Rt Catrina 3 Ml Nebu) 3 ml INH X1 ONE Stop: 07/06/25 22:30 Last Admin: 07/06/25 22:42 Dose: 3 ml Documented By: GUERO Dexamethasone Sodium Phosphate (Dexamethasone Sod Phos Inj 10 Mg/Ml Vial) 10 mg PO X1 ONE Stop: 07/06/25 22:30 Last Admin: 07/06/25 22:39 Dose: 10 mg Documented By: DEBORA Sodium Chloride (Ns) 1,000 mls @ 999 mls/hr IV .Q1H1M ONE Stop: 07/06/25 23:29 Last Infusion: 07/06/25 23:48 Dose: Infused Documented By: Admin: 07/06/25 22:39 Dose: 999 mls/hr Documented By: DEBORA Ibuprofen (Ibuprofen Tab 600 Mg Tablet) 600 mg PO X1 ONE Stop: 07/07/25 01:58 Last Admin: 07/07/25 02:01 Dose: 600 mg Documented By: DEBORA Sodium Chloride (Sodium Chloride Rt Catrina 0.9% 3 Ml Nebu) 3 ml INH PRN PRN PRN Reason: SOLN Stop: 08/05/25 23:32 Last Admin: 07/07/25 00:01 Dose: 3 ml Documented By: GUERO See above if any Consultations Consultation(s) initiated? (list below): No Diagnosis Shortness of Breath Differential Diagnosis: acute exacerbation of chronic obstructive airways disease, congestive heart failure, community acquired pneumonia and pulmonary embolism Most likely diagnosis given after review of the tests above:: See clinical impression below Admission Indicated Admission indicated?: not indicated Explain why admission is indicated or not indicated:: Patient has no emergent abnormalities in their studies and can be managed on an outpatient basis. Admission Request Was there a request for admission?: No Disposition Plan Disposition Plan: Discharge Discharge Attestation Discharge Attestation: The patient and all family members were given an opportunity to ask questions and understood the discharge instructions. Discharge instructions specifically effects, indications for sooner follow up or return to the emergency department, and the expected course of current diagnosis. Patient condition: Stable Discharge Plan Plan Patient Disposition: HOME (Self Care) Discharge Disposition comment: Stable for discharge home Patient condition on transfer: Stable Prescriptions/Referrals Prescriptions/Med Rec: New alum-mag hydroxide-simeth [Maalox Advanced] 200-200-20 mg/5 mL suspension 15 ml PO QID PRN (Reason: dyspepsia) Qty: 3000 0RF Rx Instructions: administer between meals and at bedtime famotidine [Pepcid] 20 mg tablet 20 mg PO QDAY 10 Days Qty: 10 0RF azithromycin [Zithromax Z-Jeremy] 250 mg tablet See Rx Instructions .ROUTE .COMPLEX Qty: 6 0RF Rx Instructions: For 250 mg dose pack: take 500 mg today (day 1), then 250 mg for 4 days (days 2-5) No Action albuterol sulfate 90 mcg/actuation Hfa Aerosol Inhaler 2 puff INHALATION Q4H PRN (Reason: SOB ) fluticasone propion-salmeterol 55-14 mcg/actuation aerosol powdr breath activated 1 inh inhalation BID Qty: 1 0RF prednisone 10 mg tablets,dose pack 10 mg PO QDAY Qty: 21 0RF nicotine 21 mg/24 hr patch 24 hour 21 mg topical QDAY Qty: 28 0RF prednisone 10 mg tablet See Taper PO QDAY Qty: 30 0RF Taper: Prednisone Taper 40 mg DAILY for 3 Days and 0 Hour 30 mg DAILY for 3 Days and 0 Hour 20 mg DAILY for 3 Days and 0 Hour 10 mg DAILY for 3 Days and 0 Hour fluticasone propion-salmeterol 250-50 mcg/dose blister with device 1 inh inhalation BID Qty: 60 2RF albuterol sulfate [Ventolin HFA] 90 mcg/actuation HFA aerosol inhaler 2 puff inhalation QID PRN (Reason: shortness of breath or wheezing) Qty: 6.7 2RF doxycycline hyclate 100 mg capsule 100 mg PO QDAY Qty: 14 0RF meloxicam 7.5 mg tablet 7.5 mg PO QDAY Qty: 10 0RF Referrals: [facility] [Provider Group] - In 1 week Problem List Clinical Impression: Pneumonia, Acute epigastric pain Patient/Caregiver Discharge Instructions Discharge Activity: activity as tolerated Education Materials: ED Pneumonia (Adult), ED Epigastric Pain (Uncertain Cause) Additional Instructions: Please return to the emergency department if you have any worsening or any further medical problems and we will help you. Otherwise you should follow-up with your primary care doctor within the next several days. Print Language: German Stand Alone Forms: [employer] Award Info., Patient Portal Info Letter
--- NOTE | 2025-07-06 22:29 | XR_ITS ---
EXAMINATION: AP chest single view TECHNIQUE: AP portable semiupright chest single view Date and time: July 06 025, 11:05 p.m., comparison June 24, 2025 INDICATIONS: Shortness of breath and lower chest pain beginning 2 days ago. FINDINGS: Normal heart size Accentuation of the basilar bronchovascular markings. No lobar pneumonia or pulmonary edema Clavicles ribs appear intact IMPRESSION: Bronchitis pattern
[2025-07-06] MEDS: SODIUM CHLORIDE 0.9% 1000 ML 1,000 ML 999 ML IV (22:39)
[2025-07-06] MEDS: DEXAMETHASONE SOD PHOS INJ 10 MG/ML VIAL PO (22:39)
[2025-07-06 22:42] VITALS: PULSE 75; PULSE 77; RESP 19; RESP 23; RESP 96; O2SAT 97
[2025-07-06] MEDS: ALBUTEROL/IPRATROPIUM (Duoneb) RT SOL 3 ML NEBU INH (22:42)
--- NOTE | 2025-07-06 22:43 | XR_ITS ---
Examination: CTA chest, with intravenous contrast. CTA abdomen, with intravenous contrast. CTA pelvis, with intravenous contrast. 2-D sagittal and coronal reconstructions. 3-D reconstructions. Date and time of exam: July 06, 2025, 11:51 p.m. INDICATION: Lower chest and upper back pain radiating to the back today CTDI vol (mgy) 10.62 DLP (MGycm) 597 Technique: Multiple CTA images, 2.0 mm slice thickness, obtained chest, abdomen, pelvis, with the high-resolution 64 slice scanner. 100 cc Isovue-370 is administered intravenously. Sagittal and coronal 2-D reconstructions are obtained. 3-D reconstructions, angiographic images are obtained. 3-D postprocessing, including vascular maximum intensity projections. Low dose protocols were performed. One or more of the following dose reduction techniques were used; automated exposure control, adjustment of the mA and/or KV according to patient size, use of iterative reconstruction technique. Findings: No thoracic aortic aneurysmal dilatation Mild chronic thrombus in the descending thoracic aorta, no dissection Pulmonary artery segments are not enlarged No pulmonary artery filling defects No mediastinal lymphadenopathy No pneumonia or pulmonary edema No visualized liver or splenic lesion No gallstones No pancreatic or adrenal mass Abdominal aortic calcification no aneurysmal dilatation Origins celiac superior mesenteric and renal axes intact No renal or ureteral calculi Abundant stool in the cecum No bowel obstruction Irregular thickening of the urinary bladder wall, anteriorly up to 11 mm No bladder calculi Transverse prostate dimension 4.6 cm Scattered colonic diverticulosis Prominent osteopenia with advanced degenerative disc disease L5-S1 90% stenosis proximal left superficial femoral artery axial image 434 IMPRESSION: No thoracic or abdominal aortic aneurysmal dilatation or dissection Negative for pulmonary artery emboli 90% stenosis proximal left superficial femoral artery, consider ultrasound Doppler assessment of the lower extremity arteries No bowel obstruction Irregular thickening of the urinary bladder wall especially anteriorly up to 11 mm, differential would include cystitis, early bladder cancer not excluded, recommend follow-up
[2025-07-06 22:52] LABS: Basophils # (Auto) 0.1 Thou/mm3 (0.0-0.2); Basophils % (Auto) 1 % (0-2.5); Eosinophils # (Auto) 0.9 Thou/mm3 (0.0-0.5); Eosinophils % (Auto) 8 % (0-10); Hematocrit 49.0 % (41.0-53.0); Hemoglobin 17.2 g/dL (13.5-16.0); Immature Granulocytes Auto 0.03 Thou/mm3 (0.00-0.00); Lymphocytes # (Auto) 2.6 Thou/mm3 (1.0-4.8); Lymphocytes % (Auto) 23 % (10-50); Mean Corpuscular HGB Conc 35.1 g/dl (31.0-37.0); Mean Corpuscular Hemoglobin 33.5 pg (25.0-35.0); Mean Corpuscular Volume 95 fL (80-100); Monocytes # (Auto) 1.0 Thou/mm3 (0.0-0.8); Monocytes % (Auto) 9 % (0-12); Neutrophils # (Auto) 6.7 Thou/mm3 (1.8-7.7); Neutrophils % (Auto) 59 % (37-80); Nucleated Red Blood Cell # 0.00 Thou/mm3 (0.00-0.00); Nucleated Red Blood Cell % 0 /100 WBC (0); Platelet Count 268 Thou/mm3 (140-440); RDW Standard Deviation 40.6 fL (35.1-43.9); Red Blood Count 5.14 Miln/mm3 (4.50-5.90); White Blood Count 11.3 Thou/mm3 (3.8-10.6)
[2025-07-06 23:02] VITALS: BP 159/79; PULSE 96; RESP 18; O2SAT 96
[2025-07-06 23:04] VITALS: BP 149/81; PULSE 79
[2025-07-06 23:08] LABS: Influenza A Ag Negative; Influenza B Ag Negative
[2025-07-06 23:12] LABS: Alanine Aminotransferase 57 U/L (10-49); Albumin, Serum 4.9 gm/dL (3.4-4.8); Albumin/Globulin Ratio 2.0 (1.2-2.2); Alkaline Phosphatase 101 U/L (46-116); Anion Gap 11 (7-16); Aspartate Amino Transferase 37 U/L (0-34); BUN/Creatinine Ratio 14 Ratio (12-20); Bilirubin,Total 0.5 mg/dL (0.3-1.2); Blood Urea Nitrogen 11 mg/dL (9-23); Calcium 9.7 mg/dL (8.3-10.6); Calcium (Corrected) 9.7 mg/dL (8.5-10.1); Carbon Dioxide 25.4 mMol/L (20.0-31.0); Chloride 100 mMol/L (98-107); Creatinine (Component) 0.8 mg/dL (0.6-1.3); Estimated Creatinine Clearance 88.4 mL/min (>60); Globulin 2.4 gm/dL (2.3-3.5); Glucose 121 mg/dL (74-106); Magnesium 2.0 mg/dL (1.6-2.6); Osmolality,Calculated 272 (275-295); Potassium 4.0 mMol/L (3.4-5.1); Sodium 136 mMol/L (136-145); Total Protein 7.3 gm/dL (5.7-8.2); Troponin I < 0.002 ng/mL (0.0-0.045); eGFR > 60 See Note
[2025-07-06 23:20] LABS: B-Type Natriuretic Peptide < 20 pg/mL (0-100)
[2025-07-07] VITALS: PULSE 80; RESP 26; O2SAT 99
[2025-07-07 00:01] VITALS: PULSE 85
[2025-07-07] MEDS: ALBUTEROL RT 2.5 MG/0.5 ML NEBU INH (00:01)
[2025-07-07] MEDS: SODIUM CHLORIDE RT SOL 0.9% 3 ML NEBU INH (00:01)
--- NOTE | 2025-07-07 01:39 | PRELIM_ITS ---
CT angiogram of the chest, abdomen, and pelvis with intravenous contrast (axial sections with sagittal and coronal reformats) July 06, 2025 at 2350 hours Clinical History: Lower chest/upper abdominal/mid back pain Comparison: Correlated with the prior CT chest report dated June 22, 2024. Findings: The thoracic aorta demonstrates mild atheromatous calcification without evidence of dissection or aneurysm. The origins of the right brachiocephalic, left common carotid, and left subclavian arteries are patent with mild atheromatous changes. The abdominal aorta demonstrates mild atheromatous calcification without evidence of dissection or aneurysm. There are mild atheromatous changes at the origin of the celiac, superior mesenteric, inferior mesenteric, and bilateral renal arteries without critical stenosis. There is a patent accessory left renal artery. The common iliac, external iliac, and internal iliac arteries are patent bilaterally with mild atheromatous changes; there is moderate stenosis of the proximal left superficial femoral artery (up to 60-70% narrowing on axial image 328/374). There is no filling defect in the central, lobar, and segmental pulmonary artery divisions to suggest pulmonary thromboembolism. Evaluation of the subsegmental pulmonary artery divisions is markedly limited due to motion artifact. Multiple mediastinal and hilar lymph nodes are noted, the largest measuring 1.8 x 1.2 cm in the right suprahilar region. There is no pericardial effusion. There is a thickened distal esophagus, which may be related to mild reflux esophagitis. Small patchy areas of consolidation are seen in the left lung base medially. Mild bilateral peribronchial soft tissue thickening is also noted. There are mild emphysematous changes, predominantly in the upper lobes bilaterally. There is no pleural effusion or pneumothorax. Mild fatty infiltration of the liver. Nonspecific perinephric fat stranding is noted bilaterally. The gallbladder, spleen, adrenals and pancreas are unremarkable. No evidence of bowel obstruction. A moderate amount of fecal material is seen in the colon. There are occasional colonic diverticula without evidence of diverticulitis. There is irregular urinary bladder wall thickening/edema with mild perivesical fat stranding (predominantly involving the anterior wall of the urinary bladder). Mild prostatomegaly is seen. There is no free fluid, free air, or abscess. There is diffuse osteopenia. Degenerative changes are seen in the spine. There is leftward scoliosis of the lumbar spine. Impression: 1. Mild atheromatous changes of the thoracic, abdominal aorta, and its branches without aneurysm, dissection, or critical stenosis. 2. Moderate stenosis of the proximal left superficial femoral artery (up to 60- 70% narrowing). 3. Small patchy areas of consolidation in the left lung base medially, suspicious frontal pneumonitis. 4. Irregular thickening of the urinary bladder wall with mild perivesical fat stranding as described; suspicious for cystitis. 5. Other findings are as described above. Suggest clinical correlation and follow up accordingly. Report Electronically Signed By: Christian James 07/07/2025 1:39:36 AM [EST]
[2025-07-07] MEDS: ACETAMINOPHEN 500 MG TABLET 1000 MG PO (02:01)
[2025-07-07] MEDS: IBUPROFEN TAB 600 MG TABLET PO (02:01)
[2025-07-07 02:47] VITALS: PULSE 94; RESP 18; O2SAT 96
== END 2025-07-07 03:23 | disposition home or self-care (01) ==
PROVIDERS: Emergency Provider Emergency Medicine
DX: J18.9 Pneumonia, unspecified organism (principal); J44.0 Chronic obstructive pulmonary disease with (acute) lower respiratory infection; I70.0 Atherosclerosis of aorta; Z87.891 Personal history of nicotine dependence; Z99.81 Dependence on supplemental oxygen
CPT/HCPCS: 36415; 71045; 71275; 74174; 80053; 83735; 83880; 84484; 85025; 87502; 87635; 93005; 94640; 96360; 99284; A4649; A9270; J1100; J7030; Q9967; J7611

== ENCOUNTER 2025-07-16 14:03 | Inpatient (IN) | payer OTHER, MEDICAID, MEDICARE, SELFPAY ==
[2025-07-16] VITALS (13 sets, daily range): BP systolic 115–153; BP diastolic 77–88; PULSE 90–108; RESP 12–97; TEMP 36.5–36.9; O2SAT 94–100; BMI 23.1; BMI 23.6
--- NOTE | 2025-07-16 14:19 | XR_ITS ---
EXAMINATION: XR chest 1V ORDERING PROVIDER: Quynh Troy MD HISTORY: sob TECHNIQUE: 2 portable AP radiograph of the chest. COMPARISON: 07/06/2025, chest radiographs FINDINGS: Lines and Tubes: Multiple overlying monitoring leads. Lungs: No consolidation. No mass. Pleura: No pneumothorax or pleural effusion. Cardiomediastinal Silhouette: Calcifications aortic arch. Soft Tissues/Bones: Moderate bony degenerative changes. IMPRESSION: No acute pulmonary findings.
--- NOTE | 2025-07-16 14:20 | PD.EDSOB ---
ED SOB =RME/HPI General Chief Complaint: Chest Pain Stated Complaint: SOB Time Seen by Provider: 07/16/25 14:18 Source: patient and EMS Arrival date/time: 07/16/25 14:03 Mode of arrival: EMS Limitations: no limitations OLYAE / NILDA GAMOBA Complaint: shortness of breath OLYAE / HPI Narrative: Patient is a 70-year-old male with medical history notable for COPD, hypertension, send Emergency Department concerns for shortness of breath and chest pain. 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 Has been using his inhalers at home as not been helping his symptoms. Today feels chest pressure and tightness and is having a hard time breathing. Paramedics arrived, patient was oxygen saturation in the high 80s, requiring 6 L by nasal cannula. Paramedics provided patient with a breathing treatment, oxygen saturations improved to 95% were able to titrate down the oxygen. Denies fevers, chills, nausea, vomiting, recent travel, sick contacts. Patient has not smoked nor drink alcohol in about a month. Related Data Home Medications ?Medication ?Instructions ?Recorded ?Confirmed albuterol sulfate 90 mcg/actuation 2 puff inhalation Q4H PRN SOB 06/23/24 07/16/25 aerosol inhaler amlodipine 10 mg tablet 10 mg PO QDAY 07/16/25 07/16/25 fluticasone 250 mcg-salmeterol 50 1 inh inhalation Q12H PRN copd 07/16/25 07/16/25 mcg/dose blistr powdr for inhalation (Wixela Inhub) Previous Rx's ?Medication ?Instructions ?Recorded meloxicam 7.5 mg tablet 7.5 mg PO QDAY #10 tabs 06/24/25 Allergies Allergy/AdvReac Type Severity Reaction Status Date / Time No Known Allergies Allergy Verified 07/06/25 21:45 Review of Systems Review of Systems Systems Reviewed: All systems reviewed, normal except as documented Past Medical History Past Medical History CARDIAC: Positive Hypertension RESPIRATORY: Positive Chronic Obstructive Pulmonary Disease (COPD) and Asthma OTHER HISTORY: Positive Hospitalization Social History SMOKING STATUS: Current every day smoker ED Exam General Limitations: Present no limitations General appearance: Present in distress Head Head exam: Present atraumatic and normocephalic Eye Eye exam: Present normal appearance and PERRL ENT ENT exam: Present normal exam and normal oropharynx Neck Neck exam: Present normal inspection and trachea midline Chest Chest inspection: Present normal inspection and symmetric chest wall rise Respiratory Respiratory exam: Present wheezes and accessory muscle use Cardiovascular Cardiovascular exam: Present regular rate Abdominal Exam Abdominal exam: Present soft; Absent distention, tenderness or guarding Extremities Exam Extremities exam: Present normal inspection and full ROM Neurological Exam Neurological exam: Present alert and other Psychiatric Psychiatric exam: Present normal affect and normal mood Skin Skin exam: Present warm and dry Course Quality Measures none Orders Category Date Time Status Admit to Inpatient Status Routine Admission 07/16/25 18:13 Active Patient Condition Routine Admission 07/16/25 18:13 Ordered EKG (ED ONLY) *Do not use* NOW Care 07/16/25 14:24 Completed Notify provider NEEDED Care 07/16/25 18:13 Completed Sequential Compression Device QSHIFT Care 07/16/25 18:13 Completed CXR [XR chest 1V] Stat Exams 07/16/25 14:19 Completed EKG (ED Only) Stat Exams 07/16/25 14:24 Draft ABG [Arterial Blood Gas] Stat Lab 07/16/25 20:56 Completed BNP [B-Type Natriuretic Peptide] Stat Lab 07/16/25 14:42 Completed CBC AM DRAW Lab 07/17/25 05:21 Completed CBC AM DRAW Lab 07/18/25 05:10 Completed CBC AM DRAW Lab 07/19/25 05:32 Completed CBC Stat Lab 07/16/25 14:42 Completed CMP [Comprehensive Metabolic Panel] Stat Lab 07/16/25 14:42 Completed COVID-19 Antigen (In-House) Stat Lab 07/16/25 16:56 Completed Comprehensive Metabolic Panel AM DRAW Lab 07/17/25 05:21 Completed Comprehensive Metabolic Panel AM DRAW Lab 07/18/25 05:10 Completed Comprehensive Metabolic Panel AM DRAW Lab 07/19/25 05:32 Completed Influenza A & B Rapid Panel Stat Lab 07/16/25 16:52 Completed Magnesium AM DRAW Lab 07/17/25 05:21 Completed Magnesium AM DRAW Lab 07/18/25 05:10 Completed Magnesium AM DRAW Lab 07/19/25 05:32 Completed PT [Prothrombin Time with INR] Stat Lab 07/16/25 14:42 Completed Phosphorous AM DRAW Lab 07/17/25 05:21 Completed Phosphorous AM DRAW Lab 07/18/25 05:10 Completed Phosphorous AM DRAW Lab 07/19/25 05:32 Completed Troponin I Stat Lab 07/16/25 14:42 Completed ALBUTEROL RT 0.5ml [Proventil Rt 0.5ml] Med 07/16/25 14:19 Discontinued 10 mg INH X1 ONE ALBUTEROL RT 0.5ml [Proventil Rt 0.5ml] Med 07/16/25 16:20 Discontinued 10 mg INH X1 ONE Acetaminophen Tab [Tylenol Tab] Med 07/16/25 18:13 Discontinued 650 mg PO Q6H PRN Albuterol/Ipratr Rt Catrina [Duoneb Rt Catrina] Med 07/16/25 19:00 Discontinued 3 ml INH Q4HRRT Azithromycin Inj [Zithromax Inj] 500 mg Med 07/17/25 21:00 Discontinued Sodium Chloride 0.9% 250 ml [Ns] 250 ml IV QDAY@2100 EPINEPHrine Inj [Adrenalin Inj] Med 07/16/25 16:20 Discontinued 0.3 mg IM X1 ONE Ipratropium [place] Rt Catrina [Atrovent Rt Catrina] Med 07/16/25 14:19 Discontinued 1 mg INH X1 ONE MethylPREDNISolone. [SoluMEDROL Inj] Med 07/17/25 09:00 Discontinued 40 mg IVP TID MethylPREDNISolone.* [SoluMEDROL Inj] Med 07/16/25 14:19 Discontinued 125 mg IVP X1 ONE Ondansetron Inj [Zofran Inj] Med 07/16/25 18:13 Discontinued 4 mg IVP Q6H PRN Pantoprazole Inj [Protonix Inj] Med 07/17/25 09:00 Discontinued 40 mg IVP QDAY Ringers Lactated 1000 ml [Lactated Ringers] 1,000 ml Med 07/16/25 14:22 Discontinued IV 999 mls/hr Sodium Chloride Rt Catrina 0.9% [NS Rt Catrina 0.9%] Med 07/16/25 14:19 Discontinued 3 ml INH PRN PRN Sodium Chloride Rt Catrina 0.9% [NS Rt Catrina 0.9%] Med 07/16/25 16:20 Discontinued 3 ml INH PRN PRN oxyCODONE/APAP 5/325 [Percocet 5/325] Med 07/16/25 18:13 Discontinued 1 tab PO Q6H PRN Code Status Routine Oth 07/16/25 18:13 Completed BiPAP / CPAP NOW RT 07/16/25 17:26 Completed Vital Signs Vital signs: Vital Signs Temperature 98.4 F 07/16/25 14:06 Pulse Rate 99 07/16/25 14:06 Respiratory Rate 22 H 07/16/25 14:06 Blood Pressure 153/87 H 07/16/25 14:06 Pulse Oximetry (%) 96 07/16/25 14:06 Oxygen Delivery Method Room Air 07/16/25 14:06 Pulse ox is 96% on room air which is adequate. Shortness of Breath / Dyspnea MDM Narrative MDM Narrative:: Patient is a 70-year-old male is in emerged from concerns for shortness of breath and chest pressure and tightness. Vital signs and exam as listed. Concern for pneumonia, COPD exacerbation, reactive airway disease exacerbation, ACS, among others. Ordered labs, EKG, chest x-ray, breathing treatment steroids magnesium and fluids. EKG performed today at 1437 interpreted by me. Sinus rhythm heart rate 94 normal intervals, nonspecific T wave changes, not a cardiac alert. Labs with evidence of leukocytosis 11, no left shift, hemoglobin 16.3, no significant acute metabolic abnormality, no transaminitis troponin not elevated chest x-ray unremarkable. 3:36p reevaluated patient, patient has only completed half of the breathing treatment continues to wheeze. Will order additional breathing treatment at the end of this. 1627p: I spoke with hospitalist team A for admission. Patient data External records reviewed:: [facility] previous records and EMS form Clinical information provided by:: patient and EMS Social determinants that could affect healthcare access:: none Patient has the following chronic illnesses:: None How is presenting disease/condition affected by chronic disease/condition?: exacerbated by Evaluation data The following diagnostics were reviewed and interpreted by me:: lab results, radiology exam(s) and EKG tracing(s) Lab and/or radiology exams considered but not ordered:: None Interpretation Summary: See above Medications / Prescriptions Medications or Prescriptions considered but not ordered:: None Medication administrations:: Medication Administration History Discontinued Medications Acetaminophen (Acetaminophen 325 Mg Tablet) 650 mg PO Q6H PRN PRN Reason: Fever >100.4 or pain 1-5 Stop: 08/15/25 18:12 Last Admin: 07/16/25 19:58 Dose: 650 mg Documented By: CG Albuterol (Albuterol Rt 2.5 Mg/0.5 Ml Nebu) 10 mg INH X1 ONE Stop: 07/16/25 14:20 Last Admin: 07/16/25 14:35 Dose: 10 mg Documented By: CHUCHO Albuterol (Albuterol Rt 2.5 Mg/0.5 Ml Nebu) 10 mg INH X1 ONE Stop: 07/16/25 16:21 Last Admin: 07/16/25 16:39 Dose: 10 mg Documented By: CHUCHO Albuterol/Ipratropium (Albuterol/Ipratropium (Duoneb) Rt Catrina 3 Ml Nebu) 3 ml INH Q4HRRT ANTONI Stop: 08/15/25 18:59 Last Admin: 07/19/25 11:44 Dose: 3 ml Documented By: Admin: 07/19/25 07:30 Dose: 3 ml Documented By: Admin: 07/19/25 03:07 Dose: 3 ml Documented By: Admin: 07/18/25 23:13 Dose: 3 ml Documented By: Admin: 07/18/25 19:23 Dose: 3 ml Documented By: Admin: 07/18/25 15:15 Dose: 3 ml Documented By: Admin: 07/18/25 11:56 Dose: 3 ml Documented By: Admin: 07/18/25 06:42 Dose: 3 ml Documented By: Admin: 07/18/25 02:00 Dose: 3 ml Documented By: Admin: 07/17/25 22:16 Dose: 3 ml Documented By: Admin: 07/17/25 18:19 Dose: 3 ml Documented By: Admin: 07/17/25 15:16 Dose: 3 ml Documented By: Admin: 07/17/25 11:12 Dose: 3 ml Documented By: Admin: 07/17/25 06:34 Dose: 3 ml Documented By: Admin: 07/17/25 02:24 Dose: 3 ml Documented By: Admin: 07/16/25 23:50 Dose: Not Given Documented By: CALI Non-Admin Reason: RT needed elsewhere Admin: 07/16/25 20:38 Dose: 3 ml Documented By: CALI Amlodipine Besylate (Amlodipine Besylate 5 Mg Tablet) 10 mg PO QDAY ANTONI Stop: 08/16/25 14:44 Last Admin: 07/19/25 10:11 Dose: 10 mg Documented By: Admin: 07/18/25 09:22 Dose: 10 mg Documented By: Admin: 07/17/25 16:47 Dose: 10 mg Documented By: ESTHER Epinephrine HCl (Epinephrine Inj 1 Mg/Ml Amp) 0.3 mg IM X1 ONE Stop: 07/16/25 16:21 Last Admin: 07/16/25 16:43 Dose: 0.3 mg Documented By: DEBBIE Guaifenesin/Dextromethorphan (Guaifenesin/Dm 10 Ml Udc) 5 ml PO Q6HR PRN; Protocol PRN Reason: cough Stop: 08/16/25 05:59 Last Admin: 07/17/25 04:43 Dose: 5 ml Documented By: CORKY Lactated Ringer's (Lactated Ringers) 1,000 mls @ 999 mls/hr IV .Q1H1M ONE Stop: 07/16/25 15:22 Last Infusion: 07/16/25 16:20 Dose: Infused Documented By: Admin: 07/16/25 14:47 Dose: 999 mls/hr Documented By: DEBBIE Azithromycin 500 mg/ Sodium (Chloride) 250 mls @ 250 mls/hr IV QDAY@2100 ANTONI Stop: 07/23/25 20:59 Last Admin: 07/18/25 20:16 Dose: 250 mls/hr Documented By: Infusion: 07/17/25 22:18 Dose: Infused Documented By: Admin: 07/17/25 21:18 Dose: 250 mls/hr Documented By: CORKY Azithromycin 500 mg/ Sodium (Chloride) 250 mls @ 250 mls/hr IV X1 ONE Stop: 07/16/25 19:29 Last Admin: 07/16/25 19:08 Dose: 250 mls/hr Documented By: DEBBIE Lactated Ringer's (Lactated Ringers) 1,000 mls @ 125 mls/hr IV .Q8H ANTONI Stop: 08/15/25 21:13 Last Admin: 07/17/25 05:56 Dose: 125 mls/hr Documented By: Infusion: 07/17/25 05:29 Dose: Infused Documented By: Admin: 07/16/25 21:29 Dose: 125 mls/hr Documented By: CORKY Lactated Ringer's (Lactated Ringers) 1,000 mls @ 999 mls/hr IV .Q1H1M ONE Stop: 07/17/25 02:13 Last Admin: 07/17/25 01:19 Dose: 999 mls/hr Documented By: CORKY Lactated Ringer's (Lactated Ringers) 1,000 mls @ 100 mls/hr IV .Q10H [facility] Stop: 08/16/25 08:48 Last Admin: 07/19/25 06:49 Dose: Not Given Documented By: BENITO Non-Admin Reason: old, cleaning up worklist Admin: 07/17/25 16:47 Dose: 100 mls/hr Documented By: ESTHER Ipratropium [place] (Ipratropium Rt 0.5 Mg/ 2.5 Ml Nebu) 1 mg INH X1 ONE Stop: 07/16/25 14:20 Last Admin: 07/16/25 14:34 Dose: 1 mg Documented By: CHUCHO Methylprednisolone Sodium Succinate (Methylprednisolone Sod Succ 62.5 Mg/Ml 2ml Vial) 125 mg IVP X1 ONE Stop: 07/16/25 14:20 Last Admin: 07/16/25 14:47 Dose: 125 mg Documented By: DEBBIE Methylprednisolone Sodium Succinate (Methylprednisolone Sod Succ 40 Mg/Ml Vial) 40 mg IVP TID [facility] Stop: 07/24/25 08:59 Methylprednisolone Sodium Succinate (Methylprednisolone Sod Succ 40 Mg/Ml Vial) 40 mg IVP QDAY [facility] Stop: 07/24/25 08:59 Last Admin: 07/19/25 10:11 Dose: 40 mg Documented By: Admin: 07/18/25 09:23 Dose: 40 mg Documented By: Admin: 07/17/25 09:01 Dose: 40 mg Documented By: ESTHER Ondansetron HCl (Ondansetron Inj 2 Mg/Ml Inj 2 Ml) 4 mg IVP Q6H PRN; Protocol PRN Reason: NAUSEA OR VOMITING Stop: 08/15/25 18:12 Oxycodone/Acetaminophen (Oxycodone/Apap 5/325 Tablet) 1 tab PO Q6H PRN PRN Reason: Pain Scale 6-10 Stop: 07/21/25 18:12 Pantoprazole Sodium (Pantoprazole Inj 40 Mg Vial) 40 mg IVP QDAY [facility] Stop: 08/16/25 08:59 Last Admin: 07/19/25 10:10 Dose: 40 mg Documented By: Admin: 07/18/25 09:22 Dose: 40 mg Documented By: [email or web address] Admin: 07/17/25 09:00 Dose: 40 mg Documented By: ESTHER Potassium Chloride (Potassium Chloride 10% 20 Meq/15 Ml Udc) 40 meq PO X1 ONE Stop: 07/17/25 08:45 Last Admin: 07/17/25 09:00 Dose: 40 meq Documented By: ESTHER Sodium Chloride (Sodium Chloride Rt Catrina 0.9% 3 Ml Nebu) 3 ml INH PRN PRN PRN Reason: SOLN Stop: 08/15/25 14:18 Last Admin: 07/16/25 16:40 Dose: 3 ml Documented By: Admin: 07/16/25 14:35 Dose: 3 ml Documented By: CHUCHO Sodium Chloride (Sodium Chloride Rt Catrina 0.9% 3 Ml Nebu) 3 ml INH PRN PRN PRN Reason: SOLN Stop: 08/15/25 16:19 Last Admin: 07/16/25 16:40 Dose: 3 ml Documented By: CHUCHO See above Consultations Consultation(s) initiated? (list below): No Diagnosis Shortness of Breath Differential Diagnosis: acute exacerbation of chronic obstructive airways disease, congestive heart failure, community acquired pneumonia and asthma with exacerbation Most likely diagnosis given after review of the tests above:: See MDM Admission Indicated Admission indicated?: indicated Admission Request Was there a request for admission?: Yes Admission Attestation Admission request attestation: Discussed case with [] from Hospitalist service regarding admission. Discussed patients ED course, exam findings, labs, and radiology results. The Hospitalist [agrees,declines] to accept the patient for admission. Disposition Plan Disposition Plan: Admit Discharge Plan Plan Patient Disposition: Admit Acute Care w/in Hospital Patient condition on transfer: Stable Problem List Clinical Impression: COPD (chronic obstructive pulmonary disease), RAD (reactive airway disease), COPD exacerbation Patient/Caregiver Discharge Instructions Discharge Activity: activity as tolerated and wear oxygen at night Other Activity Instructions:: Use pulse oximeter and target O2 88-92%. Use oxygen as needed.
--- NOTE | 2025-07-16 14:24 | EKG_ITS ---
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
[2025-07-16] MEDS: IPRATROPIUM RT 0.5 MG/ 2.5 ML NEBU 1 MG INH (14:34)
[2025-07-16] MEDS: SODIUM CHLORIDE RT SOL 0.9% 3 ML NEBU INH ×3 (14:35→16:40)
[2025-07-16] MEDS: ALBUTEROL RT 2.5 MG/0.5 ML NEBU 10 MG INH ×2 (14:35→16:39)
--- NOTE | 2025-07-16 14:36 | PC.NURSE ---
Patient to er via ems with c/o sob and upper mid chest pain radiaiting to right mid to lower abdomen x 3 days, sob worse today with cough and chest congestion, patient received albuterol tx en route, patient continuing to cough intermittently, RT at bedside to give nebulizer tx. Call light within reach
[2025-07-16] MEDS: MethylPREDNISolone SOD SUCC 62.5 MG/ML 2ML VIAL 125 MG IVP (14:47)
[2025-07-16] MEDS: RINGERS LACTATED 1000 ML 1,000 ML 999 ML IV (14:47)
[2025-07-16 14:57] LABS: Basophils # (Auto) 0.1 Thou/mm3 (0.0-0.2); Basophils % (Auto) 1 % (0-2.5); Eosinophils # (Auto) 1.0 Thou/mm3 (0.0-0.5); Eosinophils % (Auto) 9 % (0-10); Hematocrit 47.9 % (41.0-53.0); Hemoglobin 16.3 g/dL (13.5-16.0); Immature Granulocytes Auto 0.02 Thou/mm3 (0.00-0.00); Lymphocytes # (Auto) 2.2 Thou/mm3 (1.0-4.8); Lymphocytes % (Auto) 20 % (10-50); Mean Corpuscular HGB Conc 34.0 g/dl (31.0-37.0); Mean Corpuscular Hemoglobin 32.7 pg (25.0-35.0); Mean Corpuscular Volume 96 fL (80-100); Monocytes # (Auto) 1.2 Thou/mm3 (0.0-0.8); Monocytes % (Auto) 11 % (0-12); Neutrophils # (Auto) 6.5 Thou/mm3 (1.8-7.7); Neutrophils % (Auto) 59 % (37-80); Nucleated Red Blood Cell # 0.00 Thou/mm3 (0.00-0.00); Nucleated Red Blood Cell % 0 /100 WBC (0); Platelet Count 307 Thou/mm3 (140-440); RDW Standard Deviation 40.4 fL (35.1-43.9); Red Blood Count 4.99 Miln/mm3 (4.50-5.90); White Blood Count 11.0 Thou/mm3 (3.8-10.6)
[2025-07-16 15:09] LABS: INR 1.0 (0.9-1.3); Prothrombin Time 10.3 Seconds (9.0-12.2)
[2025-07-16 15:14] LABS: B-Type Natriuretic Peptide < 20 pg/mL (0-100)
[2025-07-16 15:15] LABS: Alanine Aminotransferase 29 U/L (10-49); Albumin, Serum 4.9 gm/dL (3.4-4.8); Albumin/Globulin Ratio 1.8 (1.2-2.2); Alkaline Phosphatase 100 U/L (46-116); Anion Gap 8 (7-16); Aspartate Amino Transferase 26 U/L (0-34); BUN/Creatinine Ratio 10 Ratio (12-20); Bilirubin,Total 0.3 mg/dL (0.3-1.2); Blood Urea Nitrogen 7 mg/dL (9-23); Calcium 9.6 mg/dL (8.3-10.6); Calcium (Corrected) 9.6 mg/dL (8.5-10.1); Carbon Dioxide 28.7 mMol/L (20.0-31.0); Chloride 102 mMol/L (98-107); Creatinine (Component) 0.7 mg/dL (0.6-1.3); Estimated Creatinine Clearance 101.0 mL/min (>60); Globulin 2.7 gm/dL (2.3-3.5); Glucose 112 mg/dL (74-106); Osmolality,Calculated 276 (275-295); Potassium 3.8 mMol/L (3.4-5.1); Sodium 139 mMol/L (136-145); Total Protein 7.6 gm/dL (5.7-8.2); Troponin I < 0.020 ng/mL (0.0-0.045); eGFR > 60 See Note
--- NOTE | 2025-07-16 16:32 | PC.NURSE ---
Called RT for neb. tx
[2025-07-16] MEDS: EPINEPHrine INJ 1 MG/ML AMP 0.3 MG IM (16:43)
[2025-07-16 17:41] LABS: COVID-19 Antigen (In-House) Negative (Negative)
[2025-07-16 17:42] LABS: Influenza A Ag Negative; Influenza B Ag Negative
--- NOTE | 2025-07-16 17:50 | PC.NURSE ---
Patient placed on bipap by RT.
--- NOTE | 2025-07-16 18:01 | PC.NURSE ---
Dr. Matthew at bedside to evaluate patient.
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
[2025-07-16] MEDS: AZITHROMYCIN INJ 500 MG in SODIUM CHLORIDE 0.9% 250 ML 250 ML 250 MG IV (19:08)
[2025-07-16] MEDS: ACETAMINOPHEN 325 MG TABLET 650 MG PO (19:58)
--- NOTE | 2025-07-16 20:04 | PC.NURSE ---
MD Garland asked if pt still be NPO, pt is on nasal cannula at 4LPM and satin at 98%, per MD will keep him NPO at this time.
--- NOTE | 2025-07-16 20:09 | PC.NURSE ---
RT made aware of ABG ordered at 181.
[2025-07-16] MEDS: ALBUTEROL/IPRATROPIUM (Duoneb) RT SOL 3 ML NEBU INH (20:38)
[2025-07-16 21:05] LABS: Allen Test Performed/OK; Base Excess -2 (-3-3); HCO3 23 mEq/L (20-26); Inspired Oxygen, FIO2 21 %; O2 Saturation 98 % (91-98); PCO2 39 mmHg (32.0-48.0); PO2 60 mmHg (83-108); Puncture Site Right Radial; pH, Arterial 7.39 (7.35-7.45)
[2025-07-16 21:10] LABS: Lactate (Lactic Acid) 7.2 mMol/L (0.4-2.0)
[2025-07-16] MEDS: RINGERS LACTATED 1000 ML 1,000 ML 125 ML IV (21:29)
--- NOTE | 2025-07-16 21:55 | PC.NURSE ---
Verified with MD Garland regarding blood culture, per MD wants to collect UA first, no source of infection and will inform the result for UA prior to ordering blood culture.
[2025-07-16 22:26] LABS: Carboxyhemoglobin 1.6 % (0.5-1.5)
[2025-07-16 22:27] LABS: Methemoglobin < 0.4 % (0.4-1.2)
[2025-07-16 22:52] LABS: Procalcitonin 0.09 ng/ml (0.0-0.49)
[2025-07-16 23:18] LABS: Base Excess -2 (-3-3); HCO3 23 mEq/L (20-26); Inspired O2, VO2 Liters 6 L/min; O2 Saturation 98 % (91-98); PCO2 39 mmHg (32.0-48.0); PO2 99 mmHg (83-108); pH, Arterial 7.38 (7.35-7.45)
[2025-07-16 23:26] LABS: Allen Test Not Performed; Puncture Site Left Radial
[2025-07-17] VITALS (14 sets, daily range): BP systolic 128–138; BP diastolic 68–84; PULSE 73–93; RESP 12–24; TEMP 36.4–37.1; O2SAT 93–100
[2025-07-17 00:06] LABS: Reflex Lactate? Y
[2025-07-17 00:50] LABS: Lactic Acid, 3 HR 6.3 mMol/L (0.4-2.0)
[2025-07-17 00:51] LABS: Collection Type, Urine Clean Catch
--- NOTE | 2025-07-17 01:00 | PC.NURSE ---
MD Garland made aware of repeat lactic acid of 6.3, no new order made at this time.
[2025-07-17 01:09] LABS: Bilirubin,Urine Negative (Negative); Blood,Urine Negative (Negative); Clarity,Urine Clear (Clear/Hazy); Color,Urine Yellow (Lt Yel-Yel); Glucose, Urine 3+ (Negative); Ketones,Urine 1+ (Negative); Leukocyte Esterase,Urine Negative (Negative); Nitrite,Urine Negative (Negative); PH,Urine 5.5 (5.0-7.0); Protein,Urine Trace (Neg - Trace); RBC,Urine < 1 /hpf (0-3); Specific Gravity,Urine 1.022 (1.001-1.035); Squamous Epithelial Cell,Urine < 1 /hpf (0-5); Urobilinogen,Urine Negative mg/dL (0.0-1.0); WBC,Urine < 1 /hpf (0-5)
[2025-07-17] MEDS: RINGERS LACTATED 1000 ML 1,000 ML 999 ML IV (01:19)
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
[2025-07-17] MEDS: ALBUTEROL/IPRATROPIUM (Duoneb) RT SOL 3 ML NEBU INH ×6 (02:24→22:16)
[2025-07-17] MEDS: guaiFENesin/DM 10 ML UDC 5 ML PO (04:43)
[2025-07-17 05:38] LABS: Lactate (Lactic Acid) 3.9 mMol/L (0.4-2.0)
[2025-07-17 05:39] LABS: Basophils # (Auto) 0.0 Thou/mm3 (0.0-0.2); Basophils % (Auto) 0 % (0-2.5); Eosinophils # (Auto) 0.0 Thou/mm3 (0.0-0.5); Eosinophils % (Auto) 0 % (0-10); Hematocrit 40.5 % (41.0-53.0); Hemoglobin 13.9 g/dL (13.5-16.0); Immature Granulocytes Auto 0.03 Thou/mm3 (0.00-0.00); Lymphocytes # (Auto) 0.6 Thou/mm3 (1.0-4.8); Lymphocytes % (Auto) 6 % (10-50); Mean Corpuscular HGB Conc 34.3 g/dl (31.0-37.0); Mean Corpuscular Hemoglobin 32.9 pg (25.0-35.0); Mean Corpuscular Volume 96 fL (80-100); Monocytes # (Auto) 0.2 Thou/mm3 (0.0-0.8); Monocytes % (Auto) 2 % (0-12); Neutrophils # (Auto) 9.5 Thou/mm3 (1.8-7.7); Neutrophils % (Auto) 91 % (37-80); Nucleated Red Blood Cell # 0.00 Thou/mm3 (0.00-0.00); Nucleated Red Blood Cell % 0 /100 WBC (0); Platelet Count 264 Thou/mm3 (140-440); RDW Standard Deviation 41.0 fL (35.1-43.9); Red Blood Count 4.22 Miln/mm3 (4.50-5.90); White Blood Count 10.4 Thou/mm3 (3.8-10.6)
[2025-07-17] MEDS: RINGERS LACTATED 1000 ML 1,000 ML 125 ML IV (05:56)
[2025-07-17 06:31] LABS: Alanine Aminotransferase 23 U/L (10-49); Albumin, Serum 4.3 gm/dL (3.4-4.8); Albumin/Globulin Ratio 1.9 (1.2-2.2); Alkaline Phosphatase 78 U/L (46-116); Anion Gap 11 (7-16); Aspartate Amino Transferase 19 U/L (0-34); BUN/Creatinine Ratio 10 Ratio (12-20); Bilirubin,Total 0.2 mg/dL (0.3-1.2); Blood Urea Nitrogen 6 mg/dL (9-23); Calcium 9.1 mg/dL (8.3-10.6); Calcium (Corrected) 9.1 mg/dL (8.5-10.1); Carbon Dioxide 23.3 mMol/L (20.0-31.0); Chloride 105 mMol/L (98-107); Creatinine (Component) 0.6 mg/dL (0.6-1.3); Estimated Creatinine Clearance 117.8 mL/min (>60); Globulin 2.3 gm/dL (2.3-3.5); Glucose 164 mg/dL (74-106); Magnesium 1.7 mg/dL (1.6-2.6); Osmolality,Calculated 279 (275-295); Phosphorous 3.1 mg/dL (2.4-5.1); Potassium 3.6 mMol/L (3.4-5.1); Sodium 139 mMol/L (136-145); Total Protein 6.6 gm/dL (5.7-8.2); eGFR > 60 See Note
[2025-07-17 08:33] LABS: Reflex Lactate? Y
--- NOTE | 2025-07-17 08:46 | ECHO_ITS ---
Patient Info Name: Rosario Morrow Age: 70 years : 1955 Gender: Male Ht: 175 cm Wt: 73 kg BSA: 1.88 m2 BP: 128 / 82 mmHg HR: 83 bpm Exam Date: 07/17/2025 1:34 PM Admit Date: 07/16/2025 Site: [facility] Room Number: 352 Patient Status: I Exam Type: CA echo doppler complete Regenerator Operator: Phoebe Smalls Ordering Physician: Reva Elizabeth Study Info Indications COPD - Primary Location: [id number] Left Ventricular Outflow Tract Name Value Normal LVOT 2D LVOT Diameter 1.6 cm LVOT Doppler LVOT Peak Velocity 120 cm/s LVOT Mean Gradient 3 mmHg LVOT VTI 27 cm LVOT VTI/AV VTI Ratio 1.1 LVOT Stroke Volume 53 ml Pulmonic Valve Name Value Normal PV Doppler PV Peak Velocity 75 cm/s Mitral Valve Name Value Normal MV Doppler MV Decel Lumpkin 540 cm/s2 MV PHT 40 ms MV Area (PHT) 5.5 cm2 4.0-5.0 MV Diastolic Function MV E Peak Velocity 74 cm/s MV A Peak Velocity 89 cm/s MV E/A 0.8 MV Annular TDI MV Septal e' Velocity 9.4 cm/s MV E/e' (Septal) 7.9 MV Lateral e' Velocity 10.6 cm/s MV E/e' (Lateral) 7.0 MV e' Average 9.98 cm/s MV E/e' (Average) 7.5 Tricuspid Valve Name Value Normal TV Regurgitation Doppler TR Peak Velocity 86 cm/s Estimated PAP/RSVP RA Pressure 3 mmHg <=5 PA Systolic Pressure 6 mmHg <36 RV Systolic Pressure 6 mmHg <36 TV Annular TDI TV Lateral Maribel s' Velocity 12.5 cm/s >=9.5 Aortic Valve Name Value Normal AV Doppler AV Peak Velocity 117 cm/s AV Mean Gradient 3 mmHg AV VTI 24 cm AV Area (Cont Eq VTI) 2.2 cm2 >=3.0 AV Area (Cont Eq Hugh) 2.1 cm2 AV DI (Hugh) 1.03 AV Regurgitation 2D LVOT Area 2.0 cm2 Ventricles Name Value Normal LV Dimensions 2D/MM IVS Diastolic Thickness (2D) 0.9 cm 0.6-1.0 LVID Diastole (2D) 4.6 cm 4.2-5.8 LVIW Diastolic Thickness (2D) 1.0 cm 0.6-1.0 LVID Systole (2D) 3.3 cm 2.5-4.0 LVOT Diameter 1.6 cm LV Mass (2D Cubed) 148.10 g 88.00-224.00 LV Mass Index (2D Cubed) 79 g/m2 49-115 Relative Wall Thickness (2D) 0.43 <=0.42 IVS/LVIW Diastolic Thickness (2D) 0.90 0.00-1.50 LV Fractional Shortening/Ejection Fraction 2D/MM LV Fractional Shortening (2D) 28 % 25-43 LV EF (2D Yaoichromainez) 55 % RV Dimensions 2D/MM TV Lateral Maribel s' Velocity 12.5 cm/s >=9.5 Atria Name Value Normal LA Dimensions LA Volume (4C A-L) 44 ml LA Volume (BP A-L) 42 ml Left Ventricle Left ventricular chamber dimension is normal. Left ventricular systolic function is normal with visually estimated ejection fraction of 60-65%. There is concentric remodeling noted in the left ventricle. Left ventricular segmental wall motion is normal. There is grade I diastolic dysfunction in the left ventricle. Right Ventricle Right ventricular chamber dimension is normal. Right ventricular systolic function is normal. Left Atrium Left atrial chamber dimension is normal. Right Atrium Right atrium was not well visualized. Aortic Valve The aortic valve is trileaflet. There is no aortic valve sclerosis. There is no aortic valve stenosis with a peak velocity of 117 cm/s, mean gradient of 3 mmHg, and aortic valve area of 2.2 cm2. There is no aortic valve regurgitation. Pulmonic Valve The pulmonic valve is normal. There is no pulmonic valve stenosis. There is no pulmonic regurgitation. Mitral Valve The mitral valve has normal leaflets. There is no mitral valve stenosis. There is trace mitral valve regurgitation. Tricuspid Valve The tricuspid valve leaflets are normal. There is no tricuspid valve stenosis. There is trace tricuspid valve regurgitation. No pulmonary hypertension, estimated pulmonary arterial systolic pressure is 6 mmHg and systemic blood pressure of 128 mmHg in systole. Pericardium/Pleural The pericardium appears normal. There is trivial pericardial effusion with no tamponade. No pleural effusion visualized. Inferior Vena Cava Normal inferior vena cava with >50% collapse upon inspiration consistent with normal right atrial pressure, 3 mmHg. Aorta The aortic measurements are indexed to age and body surface area. The aortic root at the sinus of Valsalva is not well visualized. The prox ascending aorta is not well visualized. Summary 1. Left ventricle size is normal and systolic function is normal. Estimated ejection fraction is 60-65%. There is grade I diastolic dysfunction. 2. The right ventricle is not well visualized. 3. There is trace mitral valve regurgitation. 4. There is trace tricuspid valve regurgitation. 5. The left atrium is normal. The right atrium is not well visualized. 6. Normal IVC with estimated RA pressure 3 mmHg. Report Signatures Finalized by Jade Gomez on 07/19/2025 05:53 PM
[2025-07-17] MEDS: POTASSIUM CHLORIDE 10% 20 MEQ/15 ML UDC 40 MEQ PO (09:00)
[2025-07-17 09:06] LABS: Lactic Acid, 3 HR 3.5 mMol/L (0.4-2.0)
--- NOTE | 2025-07-17 09:46 | PC.SS ---
Follow up note: On bipap. On IV steriods.
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
[2025-07-17] MEDS: RINGERS LACTATED 1000 ML 1,000 ML 100 ML IV (16:47)
--- NOTE | 2025-07-17 17:04 | XR_ITS ---
EXAMINATION: AP chest single view TECHNIQUE: AP upright portable chest single view Date and time: July 17, 2025, 1816 hours, comparison July 16, 2025 INDICATIONS: Left lower chest pain today. FINDINGS: Normal heart size Lungs are clear. Osseous rectors are intact but demineralized IMPRESSION: No active disease
[2025-07-17] MEDS: AZITHROMYCIN INJ 500 MG in SODIUM CHLORIDE 0.9% 250 ML 250 ML 250 MG IV (21:18)
[2025-07-18] VITALS (13 sets, daily range): BP systolic 126–140; BP diastolic 69–87; PULSE 69–91; RESP 16–20; TEMP 36.5–36.9; O2SAT 92–99
[2025-07-18] MEDS: ALBUTEROL/IPRATROPIUM (Duoneb) RT SOL 3 ML NEBU INH ×6 (02:00→23:13)
[2025-07-18 05:26] LABS: Lactate (Lactic Acid) 1.6 mMol/L (0.4-2.0)
[2025-07-18 05:27] LABS: Basophils # (Auto) 0.0 Thou/mm3 (0.0-0.2); Basophils % (Auto) 0 % (0-2.5); Eosinophils # (Auto) 0.0 Thou/mm3 (0.0-0.5); Eosinophils % (Auto) 0 % (0-10); Hematocrit 39.9 % (41.0-53.0); Hemoglobin 13.7 g/dL (13.5-16.0); Immature Granulocytes Auto 0.07 Thou/mm3 (0.00-0.00); Lymphocytes # (Auto) 1.5 Thou/mm3 (1.0-4.8); Lymphocytes % (Auto) 8 % (10-50); Mean Corpuscular HGB Conc 34.3 g/dl (31.0-37.0); Mean Corpuscular Hemoglobin 33.0 pg (25.0-35.0); Mean Corpuscular Volume 96 fL (80-100); Monocytes # (Auto) 1.3 Thou/mm3 (0.0-0.8); Monocytes % (Auto) 7 % (0-12); Neutrophils # (Auto) 15.2 Thou/mm3 (1.8-7.7); Neutrophils % (Auto) 84 % (37-80); Nucleated Red Blood Cell # 0.00 Thou/mm3 (0.00-0.00); Nucleated Red Blood Cell % 0 /100 WBC (0); Platelet Count 264 Thou/mm3 (140-440); RDW Standard Deviation 41.3 fL (35.1-43.9); Red Blood Count 4.15 Miln/mm3 (4.50-5.90); White Blood Count 18.2 Thou/mm3 (3.8-10.6)
[2025-07-18 06:16] LABS: Alanine Aminotransferase 20 U/L (10-49); Albumin, Serum 4.1 gm/dL (3.4-4.8); Albumin/Globulin Ratio 1.8 (1.2-2.2); Alkaline Phosphatase 70 U/L (46-116); Anion Gap 10 (7-16); Aspartate Amino Transferase 19 U/L (0-34); BUN/Creatinine Ratio 13 Ratio (12-20); Bilirubin,Total 0.2 mg/dL (0.3-1.2); Blood Urea Nitrogen 8 mg/dL (9-23); Calcium 9.2 mg/dL (8.3-10.6); Calcium (Corrected) 9.2 mg/dL (8.5-10.1); Carbon Dioxide 25.1 mMol/L (20.0-31.0); Chloride 106 mMol/L (98-107); Creatinine (Component) 0.6 mg/dL (0.6-1.3); Estimated Creatinine Clearance 117.8 mL/min (>60); Globulin 2.3 gm/dL (2.3-3.5); Glucose 117 mg/dL (74-106); Magnesium 1.9 mg/dL (1.6-2.6); Osmolality,Calculated 280 (275-295); Phosphorous 3.1 mg/dL (2.4-5.1); Potassium 3.8 mMol/L (3.4-5.1); Sodium 141 mMol/L (136-145); Total Protein 6.4 gm/dL (5.7-8.2); eGFR > 60 See Note
--- NOTE | 2025-07-18 10:12 | PC.SS ---
Patient Rosario Morrow is a 70 Year old male admitted for COPD Exacerbation. SS met with patient at bedside to discuss discharge plan and verify demographic information. Patient appeared to be alert and oriented to person, place and situation. Patient reports he lives at home with life partner, Li Bailey who reports is his surrogate decision maker, [phone]. Patient reports choice of pharmacy is [facility]. Patient does not utilize any source of DME to assist with ambulation. Patient does report he utiliez home 02 and is at 2L as needed, however mostly at night. PCP is Quynh Russell. At time of discharge patient wishes to return back home. Family will provide transportation. Discharge plan: Home Next of kin: Li Bailey
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
[2025-07-18] MEDS: AZITHROMYCIN INJ 500 MG in SODIUM CHLORIDE 0.9% 250 ML 250 ML 250 MG IV (20:16)
[2025-07-19] VITALS (7 sets, daily range): BP systolic 136–140; BP diastolic 78–82; PULSE 76–92; RESP 16–23; TEMP 36.7; O2SAT 94–99
[2025-07-19] MEDS: ALBUTEROL/IPRATROPIUM (Duoneb) RT SOL 3 ML NEBU INH ×3 (03:07→11:44)
[2025-07-19 06:14] LABS: Basophils # (Auto) 0.0 Thou/mm3 (0.0-0.2); Basophils % (Auto) 0 % (0-2.5); Eosinophils # (Auto) 0.0 Thou/mm3 (0.0-0.5); Eosinophils % (Auto) 0 % (0-10); Hematocrit 43.4 % (41.0-53.0); Hemoglobin 14.5 g/dL (13.5-16.0); Immature Granulocytes Auto 0.02 Thou/mm3 (0.00-0.00); Lymphocytes # (Auto) 0.7 Thou/mm3 (1.0-4.8); Lymphocytes % (Auto) 7 % (10-50); Mean Corpuscular HGB Conc 33.4 g/dl (31.0-37.0); Mean Corpuscular Hemoglobin 32.0 pg (25.0-35.0); Mean Corpuscular Volume 96 fL (80-100); Monocytes # (Auto) 0.3 Thou/mm3 (0.0-0.8); Monocytes % (Auto) 3 % (0-12); Neutrophils # (Auto) 9.0 Thou/mm3 (1.8-7.7); Neutrophils % (Auto) 90 % (37-80); Nucleated Red Blood Cell # 0.00 Thou/mm3 (0.00-0.00); Nucleated Red Blood Cell % 0 /100 WBC (0); Platelet Count 276 Thou/mm3 (140-440); RDW Standard Deviation 40.8 fL (35.1-43.9); Red Blood Count 4.53 Miln/mm3 (4.50-5.90); White Blood Count 10.1 Thou/mm3 (3.8-10.6)
[2025-07-19 06:41] LABS: Alanine Aminotransferase 26 U/L (10-49); Albumin, Serum 4.4 gm/dL (3.4-4.8); Albumin/Globulin Ratio 1.8 (1.2-2.2); Alkaline Phosphatase 81 U/L (46-116); Anion Gap 8 (7-16); Aspartate Amino Transferase 21 U/L (0-34); BUN/Creatinine Ratio 16 Ratio (12-20); Bilirubin,Total 0.3 mg/dL (0.3-1.2); Blood Urea Nitrogen 11 mg/dL (9-23); Calcium 9.1 mg/dL (8.3-10.6); Calcium (Corrected) 9.1 mg/dL (8.5-10.1); Carbon Dioxide 27.5 mMol/L (20.0-31.0); Chloride 103 mMol/L (98-107); Creatinine (Component) 0.7 mg/dL (0.6-1.3); Estimated Creatinine Clearance 101.0 mL/min (>60); Globulin 2.5 gm/dL (2.3-3.5); Glucose 151 mg/dL (74-106); Magnesium 2.0 mg/dL (1.6-2.6); Osmolality,Calculated 278 (275-295); Phosphorous 3.0 mg/dL (2.4-5.1); Potassium 4.3 mMol/L (3.4-5.1); Sodium 138 mMol/L (136-145); Total Protein 6.9 gm/dL (5.7-8.2); eGFR > 60 See Note
--- NOTE | 2025-07-19 14:37 | PD.RESDS ---
Planned Discharge Date 07/19/25 DS: Providers Provider Date of admission: 07/16/25 18:17 Primary care physician: Physician No Primary/Family Admitting Provider: Kin Matthew MD Attending Provider on Admission: Kin Matthew MD Attending Provider on DC: Kin Matthew MD Discharging Provider: Katy Levy MD DS: Diagnosis Problem List Completed Was Problem List Reviewed/Reconciled?: Yes Hospital Course Hospital Course Hospital course: Reason for hospitalization: COPD exacerbation 70-year-old male with a past medical history of COPD and hypertension who presented to the ED on 07/16/2025 with shortness of breath and 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 Patient was hypoxic saturating 80% on room air despite albuterol and breathing treatments prior to supplemental oxygen. Patient was therefore admitted for COPD exacerbation and started on IV methylprednisolone, azithromycin, and DuoNebs. Patient had lactic acid that was checked and found to be elevated at 7.2, however the patient received epinephrine 0.3 mg IM possibly due to suspicion of allergy reaction which may have caused the elevation. Patient received IV fluids. Lactic acid normalized over the next 48 hours. Methemoglobin and carboxyhemoglobin levels were checked, carboxy only mildly elevated at 8 hours after arrival. Patient had improvement in symptoms with O2 weaned down and was ready for discharge home to complete short course of steroid and azithromycin, to use his home O2 as needed. Discharge Recommendations: -Follow up with PCP within 1 week of discharge -The best thing you can do for your lungs and overall health is to stop smoking -Take azithromycin 250 mg for 2 more days -Take prednisone 20 mg for 4 more days -Continue rest of medications as previously prescribed -Use a pulse oximeter and measure your O2 level to maintain 88-92% -Use your albuterol inhaler as needed up to every 4 hours -Continue your fluticasone-salmeterol every 12 hours for COPD -Return to the ED or call EMS if symptoms return and/or worsen. Hospital Diagnoses: #Acute on chronic hypoxic respiratory failure #COPD with acute exacerbation #Pleuritic chest pain, resolved #Lactic Acidosis, resolved #Leukocytosis, resolved #Hypertension Patient plan of care was discussed with the attending physician, Dr. Matthew. Kayt Levy, PGY-3 Time Spent with Patient Time attestation: Total time spent providing and/or coordinating discharge services: Time spent: Greater than 30 minutes Exam Vital Signs Temp Pulse Resp BP Pulse Ox O2 Del Method O2 Flow Rate 98.0 F 82 20 138/82 H 96 Room Air 2 07/19/25 07:47 07/19/25 11:44 07/19/25 11:44 07/19/25 10:11 07/19/25 11:44 07/19/25 07:47 07/19/25 11:44 FiO2 30 07/17/25 22:19 Narrative Exam Physical Exam General: Awake and in no acute distress. Conversational and non-toxic appearing. HEENT: Normocephalic, atraumatic, mucous membranes moist. Heart: Regular rate and rhythm, normal S1 and S2, no murmurs. Lungs: Clear to auscultation with mild wheezing, no crackles. Abdomen: Soft, nondistended, nontender, positive bowel sounds. ?No guarding or rebound tenderness. Neurologic: Alert and oriented x3, no gross neurological deficit, and patient able to move all 4 extremities. Extremities: No edema. Skin: No rash or ecchymoses. Discharge Plan Plan Patient Disposition: HOME (Self Care) Patient condition on transfer: Stable Care Plan Goals: Discharge Recommendations: -Follow up with PCP within 1 week of discharge -The best thing you can do for your lungs and overall health is to stop smoking -Take azithromycin 250 mg for 2 more days -Take prednisone 20 mg for 4 more days -Continue rest of medications as previously prescribed -Use a pulse oximeter and measure your O2 level to maintain 88-92% -Use your albuterol inhaler as needed up to every 4 hours -Continue your fluticasone-salmeterol every 12 hours for COPD -Return to the ED or call EMS if symptoms return and/or worsen. ----- via Google translate: Recomendaciones para el maribell: - Realice beatrice consulta de seguimiento con fields m?dico de atenci?n primaria dentro de la semana posterior al maribell. - Lo mejor que puede hacer por oksana pulmones y fields esdras general es dejar de fumar. - [place] azitromicina 250 mg wen 2 d?as m?s. - [place] prednisona 20 mg wen 4 d?as m?s. - Contin?e con el fanny de la medicaci?n seg?n lo prescrito previamente. - Use un ox?metro de pulso y mida fields nivel de O2 para mantenerlo entre el 88 % y el 92 %. - Use fields inhalador de albuterol seg?n sea necesario, hasta cada 4 horas. - Contin?e con fields fluticasona-salmeterol cada 12 horas para la EPOC. - Regrese a urgencias o llame al servicio de emergencias m?dicas si los s?ntomas reaparecen o empeoran. Prescriptions/Referrals Prescriptions/Med Rec: New prednisone 20 mg tablet 20 mg PO QDAY 4 Days Qty: 4 0RF azithromycin 250 mg tablet 250 mg PO QDAY 2 Days Qty: 2 0RF Continued albuterol sulfate 90 mcg/actuation Hfa Aerosol Inhaler 2 puff INHALATION Q4H PRN (Reason: SOB ) amlodipine 10 mg tablet 10 mg PO QDAY Patient Comments: TOME 1 TABLETA POR V A ORAL TODOS LOS D fluticasone propion-salmeterol [Wixela Inhub] 250-50 mcg/dose blister with device 1 inh INHALATION Q12H PRN (Reason: copd) Patient Comments: INHALE 1 PUFF BY MOUTH TWICE A DAY FOR COPD meloxicam 7.5 mg tablet 7.5 mg PO QDAY Qty: 10 0RF Discontinued prednisone 10 mg tablets,dose pack 10 mg PO QDAY Qty: 21 0RF azithromycin [Zithromax Z-Jeremy] 250 mg tablet See Rx Instructions .ROUTE .COMPLEX Qty: 6 0RF Rx Instructions: For 250 mg dose pack: take 500 mg today (day 1), then 250 mg for 4 days (days 2-5) prednisone 10 mg tablet See Taper PO QDAY Qty: 30 0RF Taper: Prednisone Taper 40 mg DAILY for 3 Days and 0 Hour 30 mg DAILY for 3 Days and 0 Hour 20 mg DAILY for 3 Days and 0 Hour 10 mg DAILY for 3 Days and 0 Hour albuterol sulfate [Ventolin HFA] 90 mcg/actuation HFA aerosol inhaler 2 puff inhalation QID PRN (Reason: shortness of breath or wheezing) Qty: 6.7 2RF doxycycline hyclate 100 mg capsule 100 mg PO QDAY Qty: 14 0RF Referrals: No Primary/Family,Physician [Primary Care Provider] Patient/Caregiver Discharge Instructions Discharge Activity: activity as tolerated and wear oxygen at night Other Discharge Activity Instructions:: Use pulse oximeter and target O2 88-92%. Use oxygen as needed. Education Materials: COPD: Wheezing and Chest Tightness, Caring for Your Inhaler, Chronic Lung Disease Quit Smoking, COPD: Using Inhalers, ED COPD Flare Print Language: Faroese Stand Alone Forms: Yuli Award Info., Patient Portal Info Letter Discharge Order Discharge Orders: Discharge (Routine); Ordered 07/19/25 Ordered By: Katy Levy Quality Discharge Quality Measures VTE prophylaxis Attestestation MD Attestation I have examined the patient, reviewed labs and imaging findings, discussed the case with the resident(s), and reviewed entered orders. I agree with the plan of care as outlined in this note. Time Spent: [address] Vipul MD
== END 2025-07-19 12:53 | disposition home or self-care (01) | DRG 917 ==
LOC: SERX 14:59 → SERHOLD 19:33 → S3NX 19:53 → SERHOLD 07-17 10:22 → S3NX 07-17 10:22
PROVIDERS: Student in an Organized Health Care Education/Training Program; Admitting Provider Student in an Organized Health Care Education/Training Program; Emergency Provider Emergency Medicine; Visit Provider Student in an Organized Health Care Education/Training Program
DX: T59.811A Toxic effect of smoke, accidental (unintentional), initial encounter (principal); J96.21 Acute and chronic respiratory failure with hypoxia; J44.1 Chronic obstructive pulmonary disease with (acute) exacerbation; E87.20 Acidosis, unspecified; I10 Essential (primary) hypertension; F17.200 Nicotine dependence, unspecified, uncomplicated; Z99.81 Dependence on supplemental oxygen
CPT/HCPCS: 36415; 36600; 71045; 80053; 81001; 82375; 82803; 83050; 83605; 83735; 83880; 84100; 84145; 84484; 85025; 85610; 87040; 87502; 87811; 93005; 93306; 94640; 94644; 94660; 94664; 96361; 96372; 96374; 99285; A9270; J0166; J0456; J2470; J2919; J7050; J7120

== ENCOUNTER 2025-08-05 19:35 | Observation (INO) | payer OTHER, MEDICAID, SELFPAY ==
[2025-08-05] VITALS (8 sets, daily range): BP systolic 125–160; BP diastolic 74–89; PULSE 101–128; RESP 17–34; TEMP 36.8–37.4; O2SAT 80–95; BMI 24.3
--- NOTE | 2025-08-05 19:41 | PD.EDSOB ---
ED SOB =RME/HPI General Chief Complaint: Shortness of Breath/Dyspnea Stated Complaint: SOB Time Seen by Provider: 08/05/25 19:41 Arrival date/time: 08/05/25 19:35 Limitations: no limitations RME / HPI RME / HPI Narrative: Dr. Troy?s Main ED Evaluation: 70yo male with a history of COPD, HTN presents to the ED for a chief complaint of shortness of breath x last night. Patient states his shortness of breath progressively worsened tonight and has been unable to lay flat due to feeling like he's drowning . Endorses having a chronic cough. With EMS, patient's blood pressure was in the 220s/180s and was given 6 nitroglycerin sublingual tablets en route. Patient was also given 2 albuterol treatments without improvement. Patient was unable to tolerate CPAP en route. Denies any other associated symptoms. NKA. Related Data Home Medications ?Medication ?Instructions ?Recorded ?Confirmed albuterol sulfate 90 mcg/actuation 2 puff inhalation Q4H PRN SOB 06/23/24 07/16/25 aerosol inhaler amlodipine 10 mg tablet 10 mg PO QDAY 07/16/25 07/16/25 fluticasone 250 mcg-salmeterol 50 1 inh inhalation Q12H PRN copd 07/16/25 07/16/25 mcg/dose blistr powdr for inhalation (Wixela Inhub) Previous Rx's ?Medication ?Instructions ?Recorded meloxicam 7.5 mg tablet 7.5 mg PO QDAY #10 tabs 06/24/25 Allergies Allergy/AdvReac Type Severity Reaction Status Date / Time No Known Allergies Allergy Verified 07/06/25 21:45 Review of Systems Review of Systems Systems Reviewed: All systems reviewed, normal except as documented ED Exam General Limitations: Present no limitations General appearance: Present alert and other (increased work of breathing, speaking in incomplete sentences, tripodding) Head Head exam: Present atraumatic Eye Eye exam: Present normal appearance, PERRL and EOMI ENT ENT exam: Present normal exam, normal oropharynx and mucous membranes moist Neck Neck exam: Present normal inspection, full ROM and trachea midline Chest Chest inspection: Present normal inspection and symmetric chest wall rise Respiratory Respiratory exam: Present respiratory distress, wheezes (bilaterally) and other (tachypneic, increased work of breathing) Cardiovascular Cardiovascular exam: Present normal rhythm, tachycardia and normal heart sounds Abdominal Exam Abdominal exam: Present soft and normal bowel sounds; Absent distention, tenderness, guarding, rebound or rigidity Extremities Exam Extremities exam: Present normal inspection and full ROM Neurological Exam Neurological exam: Present alert and oriented X3 Psychiatric Psychiatric exam: Present normal affect and normal mood Skin Skin exam: Present warm, dry, intact and normal color Course Course Course Narrative: Patient was offered BiPAP on ED arrival, but he declined. CXR is ordered for determining the etiology of shortness of breath. Quality Measures none Orders Category Date Time Status COVID-19 Screening Questionnaire NOW Care 08/06/25 00:[address] Screening NOW Care 08/05/25 23:39 Active EKG (ED ONLY) *Do not use* NOW Care 08/05/25 20:[address] abdomen w con Stat Exams 08/05/25 23:39 Taken CXR [XR chest 1V] Stat Exams 08/05/25 20:11 Completed EKG (ED Only) Stat Exams 08/05/25 20:20 Ordered BNP [B-Type Natriuretic Peptide] Stat Lab 08/05/25 19:50 Completed CBC Stat Lab 08/05/25 19:50 Completed CMP [Comprehensive Metabolic Panel] Stat Lab 08/05/25 19:50 Completed INR [Prothrombin Time with INR] Stat Lab 08/05/25 19:50 Completed Troponin I Stat Lab 08/05/25 19:50 Completed ALBUTEROL RT 0.5ml [Proventil Rt 0.5ml] Med 08/05/25 18:22 Discontinued 10 mg .ROUTE .STK-MED ONE ALBUTEROL RT 0.5ml [Proventil Rt 0.5ml] Med 08/05/25 19:41 Discontinued 10 mg INH X1 ONE ALBUTEROL RT 0.5ml [Proventil Rt 0.5ml] Med 08/05/25 21:24 Discontinued 10 mg INH X1 ONE Ipratropium [place] Rt Catrina [Atrovent Rt Catrina] Med 08/05/25 18:22 Discontinued 1 mg .ROUTE .STK-MED ONE Ipratropium [place] Rt Catrina [Atrovent Rt Catrina] Med 08/05/25 19:41 Discontinued 1 mg INH X1 ONE MethylPREDNISolone.* [SoluMEDROL Inj] Med 08/05/25 19:41 Discontinued 125 mg IVP X1 ONE Sodium Chloride Rt Catrina 0.9% [NS Rt Catrina 0.9%] Med 08/05/25 19:41 Active 3 ml INH PRN PRN Reevaluation(s) Reevaluation #1: On my re-evaluation, patient continues to have diminished breath sounds bilaterally and is still requiring 9L/venti mask. Additional breathing treatment ordered. Time: 21:24 Vital Signs Vital signs: Vital Signs Temperature 99.4 F 08/05/25 19:45 Pulse Rate 123 H 08/05/25 19:45 Respiratory Rate 34 H 08/05/25 19:45 Blood Pressure 160/89 H 08/05/25 19:45 Pulse Oximetry (%) 94 L 08/05/25 19:45 Oxygen Delivery Method Oxy Mask 08/05/25 19:45 Oxygen Flow Rate 15 08/05/25 19:45 Shortness of Breath / Dyspnea MDM Narrative MDM Narrative:: Scribe Attestation: 08/05/25 - Tawnya Spear, am scribing for and in the presence of Dr. Troy. Patient is a 70-year-old male with medical history notable for reactive airway disease, chronic smoking quit smoking proximately 2 months ago, COPD that send emergency room and concerns for shortness of breath. Vital signs and exam as listed. Patient presented severely dyspneic tachypneic, tripoding and wheezing. Ordered breathing treatments, steroids, chest x-ray EKG and labs. Offered patient BiPAP however he declined at this time. Concern for reactive airway exacerbation, COPD exacerbation, pneumonia, fluid overload, sympathetic crashing acute pulmonary edema however patient's blood pressure has significantly proved prior to arrival in the emergency department. Chest x-ray without any acute cardiopulmonary normalities, no focal effusions consolidations infiltrates. Patient does have evidence of hyperinflation. EKG performed today at 1943, interpreted by me, notable for sinus tachycardia, heart rate 126, normal intervals, significant motion artifact, not a cardiac alert. Labs with evidence of leukocytosis 11.8, no left shift, hemoglobin is 16.5 no acute metabolic abnormalities, troponin is not elevated, BNP not elevated. On reevaluation, patient continues to be wheezing, ordered additional hour-long breathing treatment. Patient continues to require greater than 9 L on the Ventimask. Following second hour-long breathing treatment, patient is moving air better, is comfortable however continues to require 6 L on nasal cannula. Ordered additional hour-long breathing treatment, consulted hospitalist for admission, kindly accepted patient for admission Patient data External records reviewed:: [facility] previous records (Per chart review, patient was admitted here on 07/16/25 for COPD.) and EMS form Clinical information provided by:: patient and EMS Social determinants that could affect healthcare access:: substance use (former tobacco smoker, quit 2 months ago) Patient has the following chronic illnesses:: COPD, HTN How is presenting disease/condition affected by chronic disease/condition?: exacerbated by Evaluation data The following diagnostics were reviewed and interpreted by me:: lab results, radiology exam(s) and EKG tracing(s) Lab and/or radiology exams considered but not ordered:: none Interpretation Summary: CXR shows no pleural effusions, no consolidations, no infiltrates, or any other acute cardiopulmonary findings, according to my interpretation. Medications / Prescriptions Medications or Prescriptions considered but not ordered:: none Medication administrations:: Medication Administration History Acetaminophen (Acetaminophen 325 Mg Tablet) 650 mg PO Q6H PRN PRN Reason: Fever >100.4 Stop: 09/05/25 01:10 Albuterol/Ipratropium (Albuterol/Ipratropium (Duoneb) Rt Catrina 3 Ml Nebu) 3 ml INH Q4HR ANTONI Stop: 09/05/25 01:59 Amlodipine Besylate (Amlodipine Besylate 5 Mg Tablet) 10 mg PO DAILY ANTONI Stop: 09/05/25 08:59 Enoxaparin Sodium (Enoxaparin Sod Inj 40 Mg/0.4 Ml Syringe) 40 mg SC QDAY ANTONI Stop: 08/20/25 08:59 Azithromycin 500 mg/ Sodium (Chloride) 250 mls @ 250 mls/hr IV Q24H ANTONI Stop: 08/13/25 02:59 Ceftriaxone Sodium/Dextrose (Rocephin/D5w 1gm Iv Premix) 1 gm in 50 mls @ 100 mls/hr IV Q24H ANTONI Stop: 08/13/25 02:59 Methylprednisolone Sodium Succinate (Methylprednisolone Sod Succ 40 Mg/Ml Vial) 40 mg IVP DAILY ANTONI Stop: 08/13/25 08:59 Ondansetron HCl (Ondansetron Inj 2 Mg/Ml Inj 2 Ml) 4 mg IVP Q6H PRN; Protocol PRN Reason: NAUSEA OR VOMITING Stop: 09/05/25 01:10 Pantoprazole Sodium (Pantoprazole Inj 40 Mg Vial) 40 mg IVP Q12HR ANTONI Stop: 09/05/25 08:59 Sodium Chloride (Sodium Chloride Rt Catrina 0.9% 3 Ml Nebu) 3 ml INH PRN PRN PRN Reason: SOLN Stop: 09/04/25 19:40 Discontinued Medications Albuterol (Albuterol Rt 2.5 Mg/0.5 Ml Nebu) 10 mg INH X1 ONE Stop: 08/05/25 19:42 Last Admin: 08/05/25 19:53 Dose: 10 mg Documented By: ERAN Albuterol (Albuterol Rt 2.5 Mg/0.5 Ml Nebu) Confirm Administered Dose 10 mg .ROUTE .STK-MED ONE Stop: 08/05/25 18:23 Last Admin: 08/05/25 19:53 Dose: Not Given Documented By: ERAN Non-Admin Reason: Duplicate Medication on eMAR Albuterol (Albuterol Rt 2.5 Mg/0.5 Ml Nebu) 10 mg INH X1 ONE Stop: 08/05/25 21:25 Last Admin: 08/05/25 20:30 Dose: 10 mg Documented By: ERAN Ipratropium [place] (Ipratropium Rt 0.5 Mg/ 2.5 Ml Nebu) 1 mg INH X1 ONE Stop: 08/05/25 19:42 Last Admin: 08/05/25 19:52 Dose: 1 mg Documented By: ERAN Ipratropium [place] (Ipratropium Rt 0.5 Mg/ 2.5 Ml Nebu) Confirm Administered Dose 1 mg .ROUTE .STK-MED ONE Stop: 08/05/25 18:23 Last Admin: 08/05/25 19:53 Dose: Not Given Documented By: ERAN Non-Admin Reason: Duplicate Medication on eMAR Methylprednisolone Sodium Succinate (Methylprednisolone Sod Succ 62.5 Mg/Ml 2ml Vial) 125 mg IVP X1 ONE Stop: 08/05/25 19:42 Last Admin: 08/05/25 19:52 Dose: 125 mg Documented By: MANI see above Consultations Consultation(s) initiated? (list below): Yes Consultation #1 (Physician, Specialty, Details): Discussed case with Dr. Addison, attending Dr. Mccann from Hospitalist service regarding admission. Discussed patients ED course, exam findings, labs, and radiology results. The Hospitalist agrees to accept the patient for admission. Time: 23:13 Diagnosis Shortness of Breath Differential Diagnosis: acute exacerbation of chronic obstructive airways disease, congestive heart failure, community acquired pneumonia and asthma with exacerbation Most likely diagnosis given after review of the tests above:: see clinical impression below Admission Indicated Admission indicated?: indicated Admission Request Was there a request for admission?: Yes Admission Attestation Admission request attestation: Discussed case with Hospitalist service regarding admission. Discussed patients ED course, exam findings, labs, and radiology results. The Hospitalist [agrees] to accept the patient for admission. Disposition Plan Disposition Plan: Admit Critical Care Time Critical Care Time Critical Care Time: Yes Total Critical Care Time (min.): 45 Attestation: Due to a high probability of clinically significant, life threatening deterioration, the patient required my highest level of preparedness to intervene emergently and I personally spent this critical care time directly and personally managing the patient. This critical care time included obtaining a history; examining the patient; pulse oximetry; ordering and review of studies; arranging urgent treatment with development of a management plan; evaluation of patient's response to treatment; frequent reassessment; and, discussions with other providers. This critical care time was performed to assess and manage the high probability of imminent, life-threatening deterioration that could result in multi-organ failure. It was exclusive of separately billable procedures and treating other patients and teaching time. Please see MDM section and the rest of the note for further information on patient assessment and treatment. Discharge Plan Plan Patient Disposition: Admit Acute Care w/in Hospital Problem List Clinical Impression: COPD (chronic obstructive pulmonary disease), COPD exacerbation
[2025-08-05] MEDS: IPRATROPIUM RT 0.5 MG/ 2.5 ML NEBU 1 MG INH (19:52)
[2025-08-05] MEDS: MethylPREDNISolone SOD SUCC 62.5 MG/ML 2ML VIAL 125 MG IVP (19:52)
[2025-08-05] MEDS: ALBUTEROL RT 2.5 MG/0.5 ML NEBU 10 MG INH ×2 (19:53→20:30)
[2025-08-05 20:07] LABS: Basophils # (Auto) 0.1 Thou/mm3 (0.0-0.2); Basophils % (Auto) 1 % (0-2.5); Eosinophils # (Auto) 0.2 Thou/mm3 (0.0-0.5); Eosinophils % (Auto) 1 % (0-10); Hematocrit 48.2 % (41.0-53.0); Hemoglobin 16.5 g/dL (13.5-16.0); Immature Granulocytes Auto 0.02 Thou/mm3 (0.00-0.00); Lymphocytes # (Auto) 2.5 Thou/mm3 (1.0-4.8); Lymphocytes % (Auto) 21 % (10-50); Mean Corpuscular HGB Conc 34.2 g/dl (31.0-37.0); Mean Corpuscular Hemoglobin 32.4 pg (25.0-35.0); Mean Corpuscular Volume 95 fL (80-100); Monocytes # (Auto) 1.0 Thou/mm3 (0.0-0.8); Monocytes % (Auto) 9 % (0-12); Neutrophils # (Auto) 8.1 Thou/mm3 (1.8-7.7); Neutrophils % (Auto) 68 % (37-80); Nucleated Red Blood Cell # 0.00 Thou/mm3 (0.00-0.00); Nucleated Red Blood Cell % 0 /100 WBC (0); Platelet Count 269 Thou/mm3 (140-440); RDW Standard Deviation 40.4 fL (35.1-43.9); Red Blood Count 5.10 Miln/mm3 (4.50-5.90); White Blood Count 11.8 Thou/mm3 (3.8-10.6)
--- NOTE | 2025-08-05 20:11 | XR_ITS ---
EXAMINATION: AP chest single view TECHNIQUE: AP portable upright chest single view Date and time: August 05, 2025, 2047 hours INDICATIONS: Shortness of breath. FINDINGS: Normal heart size No lobar pneumonia or pulmonary edema Prominent osteopenia IMPRESSION: No lobar pneumonia or pulmonary edema
[2025-08-05 20:19] LABS: INR 0.9 (0.9-1.3); Prothrombin Time 10.1 Seconds (9.0-12.2)
[2025-08-05 20:24] LABS: Alanine Aminotransferase 23 U/L (10-49); Albumin, Serum 5.3 gm/dL (3.4-4.8); Albumin/Globulin Ratio 1.8 (1.2-2.2); Alkaline Phosphatase 105 U/L (46-116); Anion Gap 10 (7-16); Aspartate Amino Transferase 27 U/L (0-34); BUN/Creatinine Ratio 17 Ratio (12-20); Bilirubin,Total 0.5 mg/dL (0.3-1.2); Blood Urea Nitrogen 12 mg/dL (9-23); Calcium 10.1 mg/dL (8.3-10.6); Calcium (Corrected) 10.1 mg/dL (8.5-10.1); Carbon Dioxide 27.8 mMol/L (20.0-31.0); Chloride 102 mMol/L (98-107); Creatinine (Component) 0.7 mg/dL (0.6-1.3); Estimated Creatinine Clearance 101.0 mL/min (>60); Globulin 3.0 gm/dL (2.3-3.5); Glucose 139 mg/dL (74-106); Osmolality,Calculated 281 (275-295); Potassium 4.6 mMol/L (3.4-5.1); Sodium 140 mMol/L (136-145); Total Protein 8.3 gm/dL (5.7-8.2); Troponin I < 0.020 ng/mL (0.0-0.045); eGFR > 60 See Note
[2025-08-05 20:28] LABS: B-Type Natriuretic Peptide < 20 pg/mL (0-100)
--- NOTE | 2025-08-05 23:39 | XR_ITS ---
Examination: CT abdomen with intravenous contrast. Coronal 2-D reconstructions. Sagittal 2-D reconstructions. Date and time of exam: August 06, 2025, 0057 hours INDICATIONS: Upper abdominal pain epigastric pain beginning today CTDI: vol (mGy): 7.31 DLP: (mGycm): 210 Technique: Axial images of the abdomen have been obtained, 3 mm slice thickness, 60 cc [id number] 2-D sagittal coronal reconstructions Low dose protocols were performed. One or more of the following dose reduction techniques were used; automated exposure control, adjustment of the mA and/or KV according to patient size, use of iterative reconstruction technique. Findings: Atelectasis versus pneumonia left base Small retrocardiac gastric hernia Significant mucosal thickening, gastric Spleen not enlarged No gallstones No pancreatic or adrenal mass No renal or ureteral calculi, no hydronephrosis Aortic calcification no aneurysmal dilatation Negative for ascites Advanced degenerative disc disease L5-S1 IMPRESSION: Gastritis pattern
[2025-08-06] VITALS (10 sets, daily range): BP systolic 112–164; BP diastolic 52–92; PULSE 87–103; RESP 18–94; TEMP 36.6–37.1; O2SAT 90–96
--- NOTE | 2025-08-06 01:23 | ESHP_ITS ---
Documentation for date of: 08/06/25 HPI History of Present Illness History of present illness: HPI: 70-year-old divehi-speaking male with past medical history of COPD on home oxygen 2 L and hypertension who presented to the ED in the evening of 08/05/2025 with chief complaint of shortness of breath. This started on the morning of 08/03/2025 when the patient could not get his home oxygen to work. He mentioned that he did not know if it ran out, because he said that he could not figure out how to turn up his flow rate. He used his albuterol inhaler twice which did not provide relief to his shortness of breath. He did endorse a runny nose and associated cough with a low-grade fever of similar duration of his shortness of breath. It was reported that with EMS the patient's blood pressure was in the 220s / 180s and he was given 6 nitroglycerin sublingual tablets and route. It was also reported that he was given 2 albuterol treatments and route without improvement, and he was also unable to tolerate CPAP and route. On arrival he was found to have a normal troponin and no evidence of pneumonia on chest x-ray. He was also complaining of right upper quadrant pain and an abdominal CT was done. Official read was pending as of admission. Patient was admitted for COPD exacerbation most-likely precipitated by viral URI. ED Course: * Significant vitals on arrival: BP 160/89, pulse 123, respiratory rate 34, temp 99.4, saturating at 94% on OxyMask 15 L. * Significant labs: WBC 11.8, glucose 139 * Imaging: Chest x-ray showed no evidence of pneumonia * Urine: 3+ glucose, 1+ ketones * ED intervention: Patient received 1 mg inhaled ipratropium, 125 mg IV push methylprednisolone, 2 doses of 10 mg inhaled albuterol, and 1 treatment of DuoNebs. History: * Past medical history: COPD, hyper pretension * Surgical history: Noncontributory * Social history: Patient endorsed [id number] history of smoking, quit 2 months ago. Patient also mentioned alcohol consumption of 2-6 beers daily since he was 47 years old and quit 2 months ago. Denied illicit drug use. Allergies: * No known drug allergies. Home Medications: (Pending Med Rec) * Albuterol * Amlodipine 10 mg daily * Wixela * Meloxicam 7.5 mg daily CODE STATUS: Full Code Review of Systems Review of Systems Narrative Review of Systems: Review of Systems: * General: Low-grade fever of 2-day duration. Denies chills. * HEENT: 2-day history of rhinorrhea. * Cardiac: Denies chest pain or palpitations. * Pulmonary: 2-day history of shortness of breath. 2-day history of cough. * GI: Denies nausea, vomiting, diarrhea, constipation, melena, or hematochezia. * : Denies dysuria, hematuria, frequency, or urgency. * MSK: Denies pain in the extremities, joints, or myalgias. * Neuro: Denies weakness, numbness, vision changes, or speech difficulty. Exam Vital Signs Temp Pulse Resp BP Pulse Ox O2 Del Method O2 Flow Rate 98.2 F 103 H 22 H 149/77 H 95 Oxy Mask 13 08/05/25 23:02 08/05/25 23:02 08/05/25 23:02 08/05/25 23:02 08/05/25 23:02 08/05/25 23:02 08/05/25 23:02 Narrative Exam General: Awake and in no acute distress. Conversational and non-toxic appearing. Neurologic: GCS 15. Alert and oriented x3, no gross neurological deficit, and patient able to move all 4 extremities. HEENT: Normocephalic, atraumatic, mucous membranes moist. Pupils reactive to light. Heart: Regular rate and rhythm, normal S1 and S2, no murmurs. Lungs: Wheezes and crackles in the bases bilaterally. Abdomen: Soft, nondistended, nontender, positive bowel sounds. No guarding or rebound tenderness. Extremities: No edema. 2+ radial and dorsalis pedis pulses bilaterally. Skin: Warm. Dry. No rash or ecchymoses. Results: Labs 08/05/25 19:50 08/05/25 19:50 Labs: Short CBC 08/05/25 Range/Units 19:50 WBC 11.8 H (3.8-10.6) Thou/mm3 Hgb 16.5 H (13.5-16.0) g/dL Hct 48.2 (41.0-53.0) % Plt Count 269 (140-440) Thou/mm3 BMP 08/05/25 19:50 Sodium 140 Potassium 4.6 Chloride 102 Carbon Dioxide 27.8 BUN 12 Creatinine 0.7 Glucose 139 H Calcium 10.1 Cardiac Enzymes 08/05/25 Range/Units 19:50 Troponin I < 0.020 (0.0-0.045) ng/mL Liver Function 08/05/25 Range/Units 19:50 Total Bilirubin 0.5 (0.3-1.2) mg/dL AST 27 (0-34) U/L ALT 23 (10-49) U/L Alkaline Phosphatase 105 (46-116) U/L Albumin 5.3 H (3.4-4.8) gm/dL Quality Measures Quality Measures none Advance care planning discussed with:: patient Medications Home Medications and Allergies Home Medications ?Medication ?Instructions ?Recorded ?Confirmed ?Type albuterol sulfate 90 mcg/actuation 2 puff inhalation Q 4H PRN SOB 06/23/24 07/16/25 History aerosol inhaler amlodipine 10 mg tablet 10 mg PO QDAY 07/16/2507/16 History fluticasone 250 mcg-salmeterol 50 1 inh inhalation Q12 H PRN copd 07/16/25 07/16/25 History mcg/dose blistr powdr for inhalation (Wixela Inhub) Allergies Allergy/AdvReac Type Severity Reaction Status Date / Time No Known Allergies Allergy Verified 07/06/25 21:45 Visit Medications Acetaminophen (Acetaminophen 325 Mg Tablet) 650 mg PO Q6H PRN PRN Reason: Fever >100.4 Stop: 09/05/25 01:10 Enoxaparin Sodium (Enoxaparin Sod Inj 40 Mg/0.4 Ml Syringe) 40 mg SC QDAY [facility] Stop: 08/20/25 08:59 Ondansetron HCl (Ondansetron Inj 2 Mg/Ml Inj 2 Ml) 4 mg IVP Q6H PRN; Protocol PRN Reason: NAUSEA OR VOMITING Stop: 09/05/25 01:10 Pantoprazole Sodium (Pantoprazole Inj 40 Mg Vial) 40 mg IVP Q12HR ANTONI Stop: 09/05/25 08:59 Sodium Chloride (Sodium Chloride Rt Catrina 0.9% 3 Ml Nebu) 3 ml INH PRN PRN PRN Reason: SOLN Stop: 09/04/25 19:40 Discontinued Medications Albuterol (Albuterol Rt 2.5 Mg/0.5 Ml Nebu) 10 mg INH X1 ONE Stop: 08/05/25 19:42 Last Admin: 08/05/25 19:53 Dose: 10 mg Albuterol (Albuterol Rt 2.5 Mg/0.5 Ml Nebu) 10 mg INH X1 ONE Stop: 08/05/25 21:25 Last Admin: 08/05/25 20:30 Dose: 10 mg Ipratropium [place] (Ipratropium Rt 0.5 Mg/ 2.5 Ml Nebu) 1 mg INH X1 ONE Stop: 08/05/25 19:42 Last Admin: 08/05/25 19:52 Dose: 1 mg Methylprednisolone Sodium Succinate (Methylprednisolone Sod Succ 62.5 Mg/Ml 2ml Vial) 125 mg IVP X1 ONE Stop: 08/05/25 19:42 Last Admin: 08/05/25 19:52 Dose: 125 mg Assessment & Plan Plan Summary: 70-year-old divehi-speaking male with past medical history of COPD on home oxygen 2 L and hypertension who presented to the ED in the evening of 08/05/2025 with chief complaint of shortness of breath. This started on the morning of 08/03/2025 when the patient could not get his home oxygen to work. He endorsed a runny nose and associated cough with a low-grade fever of similar duration of his shortness of breath. On arrival he was found to have a normal troponin and no evidence of pneumonia on chest x-ray. He was also complaining of right upper quadrant pain and an abdominal CT was done. Read is pending as of admission. Patient was admitted for COPD exacerbation most-likely precipitated by viral URI. #Acute on chronic hypoxic respiratory failure #COPD Exacerbation precipitated by likely #Viral Upper Respiratory Tract Infection * Patient presented after 2-day history of shortness of breath, cough, low-grade fever, and rhinorrhea * Viral upper respiratory tract infection likely triggered the patient's COPD exacerbation, leading to the patient's acute dyspnea and cough * Patient endorsed a [id number] history of smoking, quit 2 months ago * Uses home oxygen 2 L, patient mentioned that he could not get his home oxygen to work when his shortness of breath first started 2 days before presentation to the ED Plan: * DuoNebs scheduled Q4 hours * Ceftriaxone 1 g daily IV started 08/06/2025 * Azithromycin 5 mg daily IV started 08/06/2025 * Methylprednisolone 40 mg IV daily * O2 support as needed, COPD goal oxygen saturation 88-92% #Hypertensive urgency (Resolved) #History of hypertension * It was reported that with EMS the patient's blood pressure was in the 220s / 180s and he was given 6 nitroglycerin sublingual tablets and route * On arrival BP was stage II hypertension 160/89 * No evidence of endorgan damage: Troponins and creatinine within normal limits, no pulmonary edema Plan: * Amlodipine 10 mg daily #Right upper quadrant pain #History of alcohol use disorder * Patient endorsed right upper quadrant pain on hospitalist evaluation, this was not mentioned to EMS or ED physician * Patient also mentions drinking 2-6 beers daily for the past 48 years and quit 2 months ago * LFTs within normal parameters Plan: * Follow-up results of CT abdomen pelvis with contrast * Started pantoprazole 40 mg IV daily Hospital Maintenance: DVT ppx: Lovenox 40 mg subcu daily GI ppx: Pantoprazole 40 mg IV daily Diet: Regular diet pending swallow eval IV lines: Peripheral IVs Beltran: In place draining yellow urine Code status: Full code Dispo: MedSurg, COPD exacerbation being treated with ceftriaxone azithromycin, DuoNebs Q4, restarted amlodipine for hypertension, methylprednisolone 40 mg daily, oxygen support. Patient was seen and discussed with my attending physician Dr. Siobhan GAMBOA. Jasen Addison DO PGY-1. Attending Provider Attestation/Addendum I have seen and examined the patient. I was physically present for the zepeda portions of the services provided including history, physical exam, diagnosis, treatment plans and orders. I agree with assessment and plan of care as documented by residents. Even though this this note was carefully revised there may still be minor errors in reading tutor due to voice recognition software. Marcella Mccann MD
--- NOTE | 2025-08-06 01:53 | PRELIM_ITS ---
CT scan of the abdomen with intravenous contrast (axial sections with sagittal and coronal reformats) August 06, 2025 0057 hours Clinical History: RUQ, Mid-epigastric pain. Comparison: None available at the time of this report. Findings: Left lower lobe consolidation. The liver, gallbladder, pancreas, spleen, kidneys and adrenals are unremarkable. No evidence of bowel obstruction. There is no mesenteric or retroperitoneal adenopathy. There is no free fluid or free air. Degenerative changes of the imaged portions of the spine. No acute fractures. Chronic multilevel disc disease. Impression: Left lower lobe consolidation, atelectasis versus scarring versussmall focus of pneumonia. Report Electronically Signed By: Jonathan Tolbert 08/06/2025 1:52:51 AM [EST]
[2025-08-06] MEDS: ALBUTEROL/IPRATROPIUM (Duoneb) RT SOL 3 ML NEBU INH ×3 (02:16→10:48)
[2025-08-06] MEDS: cefTRIAXone/D5w 1gm IV premix 1 GM/50 ML BAG IV (03:31)
[2025-08-06] MEDS: AZITHROMYCIN INJ 500 MG in SODIUM CHLORIDE 0.9% 250 ML 250 ML 250 MG IV (04:04)
[2025-08-06 06:59] LABS: Basophils # (Auto) 0.0 Thou/mm3 (0.0-0.2); Basophils % (Auto) 0 % (0-2.5); Eosinophils # (Auto) 0.0 Thou/mm3 (0.0-0.5); Eosinophils % (Auto) 0 % (0-10); Hematocrit 42.0 % (41.0-53.0); Hemoglobin 14.6 g/dL (13.5-16.0); Immature Granulocytes Auto 0.02 Thou/mm3 (0.00-0.00); Lymphocytes # (Auto) 0.5 Thou/mm3 (1.0-4.8); Lymphocytes % (Auto) 6 % (10-50); Mean Corpuscular HGB Conc 34.8 g/dl (31.0-37.0); Mean Corpuscular Hemoglobin 32.6 pg (25.0-35.0); Mean Corpuscular Volume 94 fL (80-100); Monocytes # (Auto) 0.1 Thou/mm3 (0.0-0.8); Monocytes % (Auto) 1 % (0-12); Neutrophils # (Auto) 7.2 Thou/mm3 (1.8-7.7); Neutrophils % (Auto) 93 % (37-80); Nucleated Red Blood Cell # 0.00 Thou/mm3 (0.00-0.00); Nucleated Red Blood Cell % 0 /100 WBC (0); Platelet Count 227 Thou/mm3 (140-440); RDW Standard Deviation 40.7 fL (35.1-43.9); Red Blood Count 4.48 Miln/mm3 (4.50-5.90); White Blood Count 7.8 Thou/mm3 (3.8-10.6)
--- NOTE | 2025-08-06 07:15 | PC.NURSE ---
RT AT BEDSIDE TO ADMINISTER BREATHING TREATMENT.
[2025-08-06 07:19] LABS: Alanine Aminotransferase 18 U/L (10-49); Albumin, Serum 4.6 gm/dL (3.4-4.8); Albumin/Globulin Ratio 1.7 (1.2-2.2); Alkaline Phosphatase 84 U/L (46-116); Anion Gap 15 (7-16); Aspartate Amino Transferase 17 U/L (0-34); BUN/Creatinine Ratio 16 Ratio (12-20); Bilirubin,Total 0.4 mg/dL (0.3-1.2); Blood Urea Nitrogen 13 mg/dL (9-23); Calcium 9.6 mg/dL (8.3-10.6); Calcium (Corrected) 9.6 mg/dL (8.5-10.1); Carbon Dioxide 23.9 mMol/L (20.0-31.0); Chloride 101 mMol/L (98-107); Creatinine (Component) 0.8 mg/dL (0.6-1.3); Estimated Creatinine Clearance 88.4 mL/min (>60); Globulin 2.7 gm/dL (2.3-3.5); Glucose 185 mg/dL (74-106); Magnesium 1.9 mg/dL (1.6-2.6); Osmolality,Calculated 284 (275-295); Potassium 3.6 mMol/L (3.4-5.1); Sodium 140 mMol/L (136-145); Total Protein 7.3 gm/dL (5.7-8.2); eGFR > 60 See Note
--- NOTE | 2025-08-06 08:30 | PC.NURSE ---
breakfast tray provided.
[2025-08-06] MEDS: ENOXAPARIN SOD INJ 40 MG/0.4 ML SYRINGE SC (09:48)
--- NOTE | 2025-08-06 10:00 | PC.SS ---
SS was informed by Deepali FORDE that patient was going to discharge from the emergency department however patient did not have 02 tank. EULA contacted [facility] and spoke to Irene who reports will have someone deliver 02 at bedside.
--- NOTE | 2025-08-06 11:44 | ESDS_ITS ---
<Statement entered by Shital Fuentes MD - 08/06/25 15:27> In summary: 70-year-old male with COPD on home oxygen admitted for shortness of breath and possible COPD exacerbation. Reports he has been out of his home oxygen and unable to get refill. On arrival he was hypertensive at 220/180 which is resolved. CXR was obtained and was unremarkable. He also complained of abdominal pain for which abdominal CT showed gastritis but no other acute pathology. Overall symptoms improved and has been on baseline oxygen through nasal cannula overnight. Denies new or worsening symptoms. We will discharge home and oxygen has been ordered and was delivered to home. Recommended PCP follow-up for continuous oxygen refills and close pulmonology F/U for COPD. Also refilled home inhalers including ALBUTEROL, Wixela and started on AMLODIPINE 10 mg daily for hypertension. I?ve reviewed the note and agree with this assessment and plan, with the exceptions outlined above. I personally went over the labs, imaging, home medications, and prior records, and examined the patient. The case was also reviewed with the attending physician. Please note: this document was transcri bed using voice recognition technology; minor inaccuracies may be present. Shital Fuentes DO PGY II Planned Discharge Date 08/06/25 DS: Providers Provider Date of admission: 08/06/25 01:11 Primary care physician: Physician No Primary/Family Admitting Provider: Marcella Mccann MD Attending Provider on Admission: Marcella Mccann MD Attending Provider on DC: Byron Quiros MD Discharging Provider: John Garner DO Anticipated date of discharge: 08/06/25 DS: Diagnosis Problem List Completed Was Problem List Reviewed/Reconciled?: Yes Hospital Course Hospital Course Hospital course: Mr. Morrow is a 70-year-old kinyarwanda-speaking male with past medical history of COPD on home oxygen 2 L and hypertension who presented to the ED in the evening of 08/05/2025 with chief complaint of shortness of breath. He denied any recent illness, fever, chill, nausea, sick contact, however, does endorse chronic cough due to his COPD. He used his albuterol inhaler twice which did not provide relief to his shortness of breath. Of note, he also ran out of his oxygen tank at home and does not know how to get it replaced. Per EMS, his initial blood pressure on scene was 220s/180s and was given 6 nitroglycerin sublingual tablets en route. Given his unremarkable lab findings (no white count, neg troponin) and CXR demonstrating no evidence of pneumonia, it is likely patient experienced hypertensive urgency at home causing him to be short of breathe at home. Patient received empiric antibiotics prior to CXR and lab findings. On this admission, he also complained of right upper quadrant pain and an abdominal CT was done with findings of gastritis. He was advised to follow up with his PCP for further management. At this time, patient is medically and physically stable for discharge for home. Social service was consulted to help patient obtain oxygen tank, which was delivered to beside. For discharge, patient was instructed to continue taking all of his inhaler and blood pressure medications, which were refilled. All questions and concerns addressed, plan of care discussed with patient, return precautions given. A stock and station agent was used during each patient encounter during this admi ssion. Diagnosis: #Acute on chronic hypoxic respiratory failure #COPD Exacerbation precipitated by likely #Viral Upper Respiratory Tract Infection #Hypertensive urgency #History of hypertension #Right upper quadrant pain #History of alcohol use disorder Discharge Plan: Follow-up with PCP within 1-2 weeks of discharge. Home oxygen has been ordered by the hospital. Continue using home oxygen as needed. Follow up with your PCP regarding continuous oxygen refill. Continue taking medications as prescribed below. Return to Emergency Room if symptoms persist, worsen, or new symptoms develop. Instructions have been explained to the patient with regards to their medications and how to take them. Patient was able to explain back to physician and nursing staff how to take their medications. Patient expressed understanding with instructions. Continue to take the rest of your medications as prescribed by your primary care physician. Patient has been explained that should any symptoms recur or worsen patient is instructed to return to the Emergency Department. Case discussed with my senior resident Dr. Fuentes Case discussed with my attending Dr. Ishaan Garner, PGY 1 Status at Discharge Overall status at discharge: patient is back to baseline Time Spent with Patient Time attestation: Total time spent providing and/or coordinating discharge services: Time spent: Greater than 30 minutes Exam Vital Signs Temp Pulse Resp BP Pulse Ox O2 Del Method O2 Flow Rate 98.1 F 87 22 H 164/92 H 96 Nasal Cannula 2 08/06/25 09:45 08/06/25 10:50 08/06/25 10:50 08/06/25 09:48 08/06/25 10:50 08/06/25 06:05 08/06/25 07:20 Narrative Exam General: Awake and in no acute distress. A/O x 3. Barbadian speaking. 92% on RA. HEENT: Normocephalic, atraumatic Heart: Regular rate and rhythm Lungs: Diminished lung sound, no wheezing or crackles. Abdomen: Soft, nondistended, nontender. No guarding or rebound tenderness. Neurologic: Alert and oriented x3, no gross neurological deficit, and patient able to move all 4 extremities. Extremities: No pitting edema in lower extremities. Skin: No rash. No ecchymoses. Discharge Plan Plan Patient Disposition: HOME (Self Care) Patient condition on transfer: Stable Care Plan Goals: * Follow-up with PCP within 1-2 weeks of discharge. * Home oxygen has been ordered by the hospital. Continue using home oxygen as needed. Follow up with your PCP regarding continuous oxygen refill. * Continue taking medications as prescribed below. * Return to Emergency Room if symptoms persist, worsen, or new symptoms develop. Prescriptions/Referrals Prescriptions/Med Rec: New albuterol sulfate 90 mcg/actuation aerosol powdr breath activated 2 inh inhalation Q6H PRN (Reason: shortness of breath or wheezing) Qty: 1 0RF fluticasone propion-salmeterol [Wixela Inhub] 250-50 mcg/dose blister with device 1 inh inhalation BID Qty: 60 1RF amlodipine 10 mg tablet 10 mg PO QDAY Qty: 30 1RF Continued meloxicam 7.5 mg tablet 7.5 mg PO QDAY Qty: 10 0RF fluticasone propion-salmeterol [Wixela Inhub] 250-50 mcg/dose blister with device 1 inh INHALATION Q12H PRN (Reason: copd) Qty: 1 1RF Patient Comments: INHALE 1 PUFF BY MOUTH TWICE A DAY FOR COPD amlodipine 10 mg tablet 10 mg PO QDAY Qty: 30 2RF Patient Comments: TOME 1 TABLETA POR V A ORAL TODOS LOS D albuterol sulfate 90 mcg/actuation Hfa Aerosol Inhaler 2 puff INHALATION Q4H PRN (Reason: SOB ) Qty: 1 1RF Referrals: No Primary/Family,Physician [Primary Care Provider] Patient/Caregiver Discharge Instructions Print Language: Barbadian Stand Alone Forms: Yuli Award Info., Patient Portal Info Letter Discharge Order Discharge Orders: Discharge (Routine); Ordered 08/06/25 Ordered By: John Garner Quality Discharge Quality Measures none
== END 2025-08-06 12:20 | disposition home or self-care (01) ==
LOC: SERX 20:43 → SERHOLD 08-06 01:37
PROVIDERS: Admitting Provider Student in an Organized Health Care Education/Training Program; Emergency Provider Emergency Medicine; Visit Provider Student in an Organized Health Care Education/Training Program
DX: J44.1 Chronic obstructive pulmonary disease with (acute) exacerbation (principal); J96.21 Acute and chronic respiratory failure with hypoxia; J06.9 Acute upper respiratory infection, unspecified; I10 Essential (primary) hypertension; I16.0 Hypertensive urgency; F10.10 Alcohol abuse, uncomplicated; K29.70 Gastritis, unspecified, without bleeding; Z60.3 Acculturation difficulty; B97.89 Other viral agents as the cause of diseases classified elsewhere
CPT/HCPCS: 36415; 71045; 74160; 80053; 83735; 83880; 84484; 85025; 85610; 87635; 93005; 94640; 94644; 96365; 96372; 96374; 96375; 96376; 99284; A4649; A9270; G0378; J0456; J0696; J1650; J2470; J2919; J7050; Q9967

== ENCOUNTER 2025-08-17 14:26 | Observation (INO) | payer OTHER, MEDICAID, SELFPAY ==
[2025-08-17] VITALS (13 sets, daily range): BP systolic 136–217; BP diastolic 85–143; PULSE 86–127; RESP 14–37; TEMP 36.5–36.9; O2SAT 92–100; BMI 25.8; BMI 23.9
--- NOTE | 2025-08-17 14:27 | EKG_ITS ---
[facility] (Formerly [facility]) Test Date: 2025-08-17 Pat Name: CHASE PINEDA Department: Room: - Gender: Male Interventional Pain Physician: : 1955 Requested By: Pietro Moore Order Number: [id number] Reading MD: Pietro Moore Measurements Intervals [place] Rate: 114 P: 71 [place]: 159 QRS: 76 QRSD: 102 T: 69 QT: 327 QTc: 452 Interpretive Statements SINUS TACHYCARDIA ABNORMAL RHYTHM ECG Compared to ECG 07/16/2025 14:37:26 Sinus rhythm no longer present Incomplete right bundle-branch block no longer present /store/S0/[id number]/[id number].pdf
--- NOTE | 2025-08-17 14:33 | XR_ITS ---
EXAMINATION: AP chest single view TECHNIQUE: AP portable chest single view Date and time: August 17, 2025, 1431 hours, comparison August 05, 2025 INDICATIONS: Severe chest pain today. FINDINGS: Normal heart size Moderate hyperexpansion. No pneumonia or pulmonary edema Moderate osteopenia IMPRESSION: Moderate hyperexpansion No pneumonia or pulmonary edema
[2025-08-17] MEDS: NITROGLYCERIN OINT 2% 1 INCH PACKET TOP (14:44)
[2025-08-17 14:53] LABS: Basophils # (Auto) 0.1 Thou/mm3 (0.0-0.2); Basophils % (Auto) 1 % (0-2.5); Eosinophils # (Auto) 0.8 Thou/mm3 (0.0-0.5); Eosinophils % (Auto) 6 % (0-10); Hematocrit 48.4 % (41.0-53.0); Hemoglobin 16.5 g/dL (13.5-16.0); Immature Granulocytes Auto 0.03 Thou/mm3 (0.00-0.00); Lymphocytes # (Auto) 3.5 Thou/mm3 (1.0-4.8); Lymphocytes % (Auto) 29 % (10-50); Mean Corpuscular HGB Conc 34.1 g/dl (31.0-37.0); Mean Corpuscular Hemoglobin 32.0 pg (25.0-35.0); Mean Corpuscular Volume 94 fL (80-100); Monocytes # (Auto) 0.9 Thou/mm3 (0.0-0.8); Monocytes % (Auto) 7 % (0-12); Neutrophils # (Auto) 6.9 Thou/mm3 (1.8-7.7); Neutrophils % (Auto) 57 % (37-80); Nucleated Red Blood Cell # 0.00 Thou/mm3 (0.00-0.00); Nucleated Red Blood Cell % 0 /100 WBC (0); Platelet Count 290 Thou/mm3 (140-440); RDW Standard Deviation 39.7 fL (35.1-43.9); Red Blood Count 5.16 Miln/mm3 (4.50-5.90); White Blood Count 12.1 Thou/mm3 (3.8-10.6)
[2025-08-17] MEDS: ALBUTEROL RT 2.5 MG/0.5 ML NEBU 10 MG INH (14:53)
[2025-08-17] MEDS: LORazepam 2 MG/ML VIAL 1 MG IV (14:53)
[2025-08-17] MEDS: IPRATROPIUM RT 0.5 MG/ 2.5 ML NEBU 1 MG INH (14:53)
--- NOTE | 2025-08-17 14:53 | PD.EDSOB ---
ED SOB =RME/HPI General Chief Complaint: Shortness of Breath/Dyspnea Stated Complaint: SOB Time Seen by Provider: 08/17/25 14:35 Arrival date/time: 08/17/25 14:26 Limitations: no limitations RME / HPI RME / HPI Narrative: DR. FINA CHOW ED EVALUATION: 70-year-old male presents to the Emergency Department with primary complaint of shortness of breath since last night. He was seen approximately two weeks ago for possible bronchitis and possible pneumonia. EMS reports fever. Per EMS, oxygen saturation was 92 percent while on nebulizer, monitor technician showed sinus tachycardia with heart rate 110 to 115, GCS 15, and blood glucose 132. He received two rounds of albuterol prior to arrival with persistent work of breathing. Patient reports 8 out of 10 chest pain since last night, headache, nausea, and vomiting. He was diaphoretic. He has a history of hypertension. He states that lying down worsens his shortness of breath and he was unable to breathe comfortably, spending the night sitting upright. He quit smoking two months ago after a 46 year smoking history. Related Data Previous Rx's ?Medication ?Instructions ?Recorded meloxicam 7.5 mg tablet 7.5 mg PO QDAY #10 tabs 06/24/25 albuterol sulfate 90 mcg/actuation 2 puff inhalation Q4H PRN SOB #1 g 08/06/25 aerosol inhaler albuterol sulfate 90 mcg/actuation 2 inh inhalation Q6H PRN shortness 08/06/25 breath activated powder inhaler of breath or wheezing #1 ea amlodipine 10 mg tablet 10 mg PO QDAY #30 tabs 08/06/25 amlodipine 10 mg tablet 10 mg PO QDAY #30 tabs 08/06/25 fluticasone 250 mcg-salmeterol 50 1 inh inhalation BID #60 ea 08/06/25 mcg/dose blistr powdr for inhalation (Wixela Inhub) fluticasone 250 mcg-salmeterol 50 1 inh inhalation Q12H PRN copd #1 08/06/25 mcg/dose blistr powdr for ea inhalation (Wixela Inhub) Allergies Allergy/AdvReac Type Severity Reaction Status Date / Time No Known Allergies Allergy Verified 07/06/25 21:45 Review of Systems Review of Systems Systems Reviewed: All systems reviewed, normal except as documented Past Medical History Past Medical History CARDIAC: Positive Hypertension RESPIRATORY: Positive Asthma OTHER HISTORY: Positive Hospitalization Social History SMOKING STATUS: Former smoker SUBSTANCE USE: does not use ALCOHOL: Never ED Exam General Limitations: Present no limitations General appearance: Present alert and other (diaphoretic, in moderate respiratory distress) Head Head exam: Present atraumatic, normocephalic and normal inspection Eye Eye exam: Present normal appearance, PERRL and EOMI ENT ENT exam: Present normal exam, normal oropharynx and mucous membranes moist Neck Neck exam: Present normal inspection, full ROM and trachea midline Chest Chest inspection: Present other (pectus excavatum) Respiratory Respiratory exam: Present other (coarse breath sounds with diffuse wheezing, active cough, increased work of breathing; patient speaking in 2 to 4 word sentences) Cardiovascular Cardiovascular exam: Present normal rhythm, tachycardia (tachycardic in the 120s) and normal heart sounds Abdominal Exam Abdominal exam: Present soft and normal bowel sounds Extremities Exam Extremities exam: Present normal inspection and full ROM Back Exam Back exam: Present normal inspection and full ROM Neurological Exam Neurological exam: Present alert, oriented X3 and CN II-XII intact Psychiatric Psychiatric exam: Present normal affect and normal mood Skin Skin exam: Present warm, intact, normal color and diaphoresis Course Quality Measures Current suspected stage: sepsis Possible source: unknown Blood cultures ordered: yes Antibiotic ordered: Yes Pertinent labs: 08/17/25 14:36 Lactic Acid 1.5 mMol/L (0.4-2.0) Procalcitonin < 0.04 ng/ml (0.0-0.49) 1428: Sepsis alert initiated. Orders made at this time are congruent with ED Adult Sepsis Order List. Re-evaluation is to be completed. 1558: Fluids started. 1628: Sepsis reassessment performed consisting of lab review, vitals, physical exam including auscultation of heart, lungs, and visual evaluation of capillary refills, mucosal membranes and extremities. sepsis Orders Category Date Time Status COVID-19 Screening Questionnaire NOW Care 08/17/25 16:51 Active Hand Buffing Wheel Former STAT Care 08/17/25 14:35 Active Continuous Pulse Oximetry NOW Care 08/17/25 14:47 Completed Continuous Pulse Oximetry ONCE Care 08/17/25 14:35 Completed Decision to Admit X1 Care 08/17/25 16:51 Active EKG (ED ONLY) *Do not use* NOW Care 08/17/25 14:28 Completed In and Out Catheter X1PRN Care 08/17/25 14:47 Active Insert IV STAT Care 08/17/25 14:35 Active NPO STAT Care 08/17/25 14:47 Active Strict Intake and Output Routine Care 08/17/25 14:47 Ordered CXRP [XR chest 1V portable] Stat Exams 08/17/25 14:33 Completed EKG (ED Only) Stat Exams 08/17/25 14:27 Draft Arterial Blood Gas Stat Lab 08/17/25 15:06 Completed B-Type Natriuretic Peptide Stat Lab 08/17/25 14:36 Completed Blood Culture (Lab) Stat Lab 08/17/25 14:31 Received CBC Stat Lab 08/17/25 14:36 Completed Comprehensive Metabolic Panel Stat Lab 08/17/25 14:36 Completed LDH (Lactate Dehydrogenase) Stat Lab 08/17/25 14:36 Completed Lactate (Lactic Acid) Stat Lab 08/17/25 14:36 Completed Lipase Stat Lab 08/17/25 14:36 Completed Magnesium Stat Lab 08/17/25 14:36 Completed Partial Thromboplastin Time Stat Lab 08/17/25 14:36 Completed Phosphorous Stat Lab 08/17/25 14:36 Completed Procalcitonin Stat Lab 08/17/25 14:36 Completed Prothrombin Time with INR Stat Lab 08/17/25 14:36 Completed Troponin I Stat Lab 08/17/25 14:36 Completed Urinalysis, C/S if Indicated Stat Lab 08/17/25 14:47 Ordered ALBUTEROL RT 0.5ml [Proventil Rt 0.5ml] Med 08/17/25 14:42 Discontinued 10 mg INH X1 ONE Aspirin Med 08/17/25 14:42 Discontinued 325 mg PO X1 ONE Ipratropium [place] Rt Catrina [Atrovent Rt Catrina] Med 08/17/25 14:42 Discontinued 1 mg INH X1 ONE Ipratropium [place] Rt Catrina [Atrovent Rt Catrina] Med 08/17/25 14:42 Discontinued 1 mg INH X1 ONE Ipratropium [place] Rt Catrina [Atrovent Rt Catrina] Med 08/17/25 14:51 Discontinued 1 mg INH X1 ONE LORazepam [Ativan Inj] Med 08/17/25 14:42 Discontinued 1 mg IV X1 ONE MethylPREDNISolone.* [SoluMEDROL Inj] Med 08/17/25 14:42 Discontinued 250 mg IV X1 ONE Nitroglycerin Oint 2% [Nitro-paste Oint 2%] Med 08/17/25 14:39 Discontinued 1 inch TOP X1 ONE Nitroglycerin/D5w 50 MG IVPB [Nitroglycerin in D5w Ivpb Med 08/17/25 14:31 Active ] 50 mg in 250 ml IV 5 mcg/min Sodium Chloride Rt Catrina 0.9% [NS Rt Catrina 0.9%] Med 08/17/25 14:42 Active 3 ml INH PRN PRN cefTRIAXone/D5w 1gm IV premix [Rocephin/D5w 1gm IV Med 08/17/25 14:47 Discontinued premix] 1 gm in 50 ml IV X1 BiPAP / CPAP NOW RT 08/17/25 14:42 Active Oxygen Delivery NOW RT 08/17/25 14:35 Active Vital Signs Vital signs: Vital Signs Temperature 98.4 F 08/17/25 14:28 Pulse Rate 119 H 08/17/25 14:28 Respiratory Rate 30 H 08/17/25 14:28 Blood Pressure 217/143 H 08/17/25 14:28 Pulse Oximetry (%) 97 08/17/25 14:28 Oxygen Delivery Method Oxy Mask 08/17/25 14:28 Oxygen Flow Rate 8 08/17/25 14:28 Shortness of Breath / Dyspnea MDM Narrative MDM Narrative:: I, Angella Diallo am scribing for and in the presence of Dr. Parker. 70-year-old male with acute shortness of breath, chest pain, fever, tachycardia, wheezing, and orthopnea, not improved after multiple nebulizer treatments. Sepsis alert activated at 14:28. Concern for pneumonia, COPD exacerbation, or sepsis. Differential diagnoses include pneumonia, COPD exacerbation, and sepsis. 2:44 PM Blood pressure is 156/116. 2:59 PM Blood pressure is 156/89. On bipap. 4:02 PM patient is drastically improved. He remains on BiPAP with an FiO2 of 40% but respiratory rate is now in the low to mid 20s, blood pressure is improved 156/89, he is saturating in the mid 90s now. 4:46 PM called and spoke with the resident on team C. We discussed the patient's case in detail. He kindly accepted the patient for admission. Patient to be admitted for COPD exacerbation, hypoxia, acute respiratory failure. When patient arrived a sepsis alert was called. I withheld fluids as patient initially seemed to be fluid overloaded. Now that I have made the diagnosis a COPD exacerbation without pulmonary edema we will give him a fluid bolus. Pt has received an hour-long DuoNeb, Solu-Medrol 250 mg IV, 1 inch of Nitropaste to the anterior chest wall, aspirin 325 mg, lorazepam 1 mg, 1 g of Rocephin IV piggyback. Patient data External records reviewed:: [facility] previous records and EMS form Clinical information provided by:: patient and EMS Social determinants that could affect healthcare access:: other (specify) (former smoker) Patient has the following chronic illnesses:: Bronchitis, hypertension, and asthma. He quit smoking two months ago after a 46 year smoking history. How is presenting disease/condition affected by chronic disease/condition?: exacerbated by Evaluation data The following diagnostics were reviewed and interpreted by me:: lab results, radiology exam(s) and EKG tracing(s) (My interpretation: EKG performed at 1427 hours, sinus tachycardia, rate 114, right bundle branch block, no signs of acute ischemia) Lab and/or radiology exams considered but not ordered:: none Interpretation Summary: See MDM narrative above. RADIOLOGY Procedure(s): XR chest 1V portable Accession Number(s): [id number] cc: Juan Alonso MD; NO PRIMARY/FAMILY,PHYSICIAN; Pietro Parker MD~ EXAMINATION: AP chest single view TECHNIQUE: AP portable chest single view Date and time: August 17, 2025, 1431 hours, comparison August 05, 2025 INDICATIONS: Severe chest pain today. FINDINGS: Normal heart size Moderate hyperexpansion. No pneumonia or pulmonary edema Moderate osteopenia IMPRESSION: Moderate hyperexpansion No pneumonia or pulmonary edema Dictated By: Juan Alonso MD Medications / Prescriptions Medications or Prescriptions considered but not ordered:: none Medication administrations:: Medication Administration History Nitroglycerin/Dextrose (Nitroglycerin In D5w Ivpb) 50 mg in 250 mls @ 1.5 mls/hr IV .Q24H PRN; Protocol PRN Reason: PER PROTOCOL Stop: 09/16/25 14:30 Sodium Chloride (Sodium Chloride Rt Catrina 0.9% 3 Ml Nebu) 3 ml INH PRN PRN PRN Reason: SOLN Stop: 09/16/25 14:41 Discontinued Medications Albuterol (Albuterol Rt 2.5 Mg/0.5 Ml Nebu) 10 mg INH X1 ONE Stop: 08/17/25 14:43 Last Admin: 08/17/25 14:53 Dose: 10 mg Documented By: [facility] Aspirin (Aspirin 325 Mg Tablet) 325 mg PO X1 ONE Stop: 08/17/25 14:43 Last Admin: 08/17/25 14:53 Dose: 325 mg Documented By: BD Ceftriaxone Sodium/Dextrose (Rocephin/D5w 1gm Iv Premix) 1 gm in 50 mls @ 100 mls/hr IV X1 ONE Stop: 08/17/25 15:16 Last Admin: 08/17/25 15:58 Dose: 100 mls/hr Documented By: PERRY Ipratropium [place] (Ipratropium Rt 0.5 Mg/ 2.5 Ml Nebu) 1 mg INH X1 ONE Stop: 08/17/25 14:43 Last Admin: 08/17/25 14:54 Dose: Not Given Documented By: BD Non-Admin Reason: Cancelled by Provider Ipratropium [place] (Ipratropium Rt 0.5 Mg/ 2.5 Ml Nebu) 1 mg INH X1 ONE Stop: 08/17/25 14:43 Last Admin: 08/17/25 14:53 Dose: 1 mg Documented By: [facility] Ipratropium [place] (Ipratropium Rt 0.5 Mg/ 2.5 Ml Nebu) 1 mg INH X1 ONE Stop: 08/17/25 14:52 Lorazepam (Lorazepam 2 Mg/Ml Vial) 1 mg IV X1 ONE Stop: 08/17/25 14:43 Last Admin: 08/17/25 14:53 Dose: 1 mg Documented By: BD Methylprednisolone Sodium Succinate (Methylprednisolone Sod Succ 62.5 Mg/Ml 2ml Vial) 250 mg IV X1 ONE Stop: 08/17/25 14:43 Last Admin: 08/17/25 14:57 Dose: 250 mg Documented By: BD Nitroglycerin (Nitroglycerin Oint 2% 1 Inch Packet) 1 inch TOP X1 ONE Stop: 08/17/25 14:40 Last Admin: 08/17/25 14:44 Dose: 1 inch Documented By: LILLIE see above Consultations Consultation(s) initiated? (list below): Yes Consultation #1 (Physician, Specialty, Details): See MDM narrative above. Diagnosis Shortness of Breath Differential Diagnosis: other (pneumonia, COPD exacerbation, and sepsis) Most likely diagnosis given after review of the tests above:: Sepsis Admission Indicated Admission indicated?: indicated Admission Request Was there a request for admission?: Yes Admission Attestation Admission request attestation: Discussed case with [] from Hospitalist service regarding admission. Discussed patients ED course, exam findings, labs, and radiology results. The Hospitalist [agrees,declines] to accept the patient for admission. Disposition Plan Disposition Plan: Admit Critical Care Time Critical Care Time Critical Care Time: Yes Total Critical Care Time (min.): 45 Attestation: The high probability of sudden, clinically significant deterioration in the patient?s condition required the highest level of my preparedness to intervene urgently. The services I provided to this patient were to treat and/or prevent clinically significant deterioration. Services included the following: chart data review, reviewing nursing notes and/or old charts, documentation time, risk and insurance consultant collaboration regarding findings and treatment options, medication orders and management, direct patient care, vital sign assessments and ordering, interpreting and reviewing diagnostic studies and lab tests. Aggregate critical care time includes only time during which I was engaged in work directly related to the patient?s care, as described above, whether at bedside or elsewhere in the Emergency Department. It did not include time spent performing other reported procedures or the services of residents, students, nurses or physician assistants. Discharge Plan Plan Patient Disposition: Admit Acute Care w/in Hospital Prescriptions/Referrals Prescriptions/Med Rec: No Action meloxicam 7.5 mg tablet 7.5 mg PO QDAY Qty: 10 0RF fluticasone propion-salmeterol [Wixela Inhub] 250-50 mcg/dose blister with device 1 inh INHALATION Q12H PRN (Reason: copd) Qty: 1 1RF Patient Comments: INHALE 1 PUFF BY MOUTH TWICE A DAY FOR COPD amlodipine 10 mg tablet 10 mg PO QDAY Qty: 30 2RF Patient Comments: TOME 1 TABLETA POR V A ORAL TODOS LOS D albuterol sulfate 90 mcg/actuation Hfa Aerosol Inhaler 2 puff INHALATION Q4H PRN (Reason: SOB ) Qty: 1 1RF albuterol sulfate 90 mcg/actuation aerosol powdr breath activated 2 inh inhalation Q6H PRN (Reason: shortness of breath or wheezing) Qty: 1 0RF fluticasone propion-salmeterol [Wixela Inhub] 250-50 mcg/dose blister with device 1 inh inhalation BID Qty: 60 1RF amlodipine 10 mg tablet 10 mg PO QDAY Qty: 30 1RF Referrals: No Primary/Family,Physician [Primary Care Provider] - In 1 week Problem List Clinical Impression: Sepsis Patient/Caregiver Discharge Instructions Print Language: Portuguese Stand Alone Forms: Yuli Award Info., Patient Portal Info Letter
[2025-08-17] MEDS: MethylPREDNISolone SOD SUCC 62.5 MG/ML 2ML VIAL 250 MG IV (14:57)
[2025-08-17 15:00] LABS: Lactate (Lactic Acid) 1.5 mMol/L (0.4-2.0)
[2025-08-17 15:01] LABS: INR 1.0 (0.9-1.3); Partial Thromboplastin Time 24.2 Seconds (22.0-36.0); Prothrombin Time 10.3 Seconds (9.0-12.2)
[2025-08-17 15:05] LABS: Alanine Aminotransferase 19 U/L (10-49); Albumin, Serum 5.1 gm/dL (3.4-4.8); Albumin/Globulin Ratio 1.7 (1.2-2.2); Alkaline Phosphatase 108 U/L (46-116); Anion Gap 10 (7-16); Aspartate Amino Transferase 26 U/L (0-34); BUN/Creatinine Ratio 11 Ratio (12-20); Bilirubin,Total 0.6 mg/dL (0.3-1.2); Blood Urea Nitrogen 9 mg/dL (9-23); Calcium 9.5 mg/dL (8.3-10.6); Calcium (Corrected) 9.5 mg/dL (8.5-10.1); Carbon Dioxide 26.1 mMol/L (20.0-31.0); Chloride 104 mMol/L (98-107); Creatinine (Component) 0.8 mg/dL (0.6-1.3); Estimated Creatinine Clearance 88.4 mL/min (>60); Globulin 3.0 gm/dL (2.3-3.5); Glucose 122 mg/dL (74-106); Magnesium 2.0 mg/dL (1.6-2.6); Osmolality,Calculated 279 (275-295); Potassium 4.0 mMol/L (3.4-5.1); Sodium 140 mMol/L (136-145); Total Protein 8.1 gm/dL (5.7-8.2); Troponin I < 0.002 ng/mL (0.0-0.045); eGFR > 60 See Note
[2025-08-17 15:08] LABS: Base Excess 0 (-3-3); HCO3 27 mEq/L (20-26); Inspired Oxygen, FIO2 40 %; O2 Saturation 99 % (91-98); PCO2 48 mmHg (32.0-48.0); PO2 127 mmHg (83-108); pH, Arterial 7.35 (7.35-7.45)
[2025-08-17 15:10] LABS: Allen Test Performed/OK; Puncture Site Right Brachial
[2025-08-17 15:24] LABS: B-Type Natriuretic Peptide < 20 pg/mL (0-100)
[2025-08-17 15:35] LABS: LDH (Lactate Dehydrogenase) 177 U/L (120-246); Lipase 42 U/L (12-53); Phosphorous 4.3 mg/dL (2.4-5.1); Procalcitonin < 0.04 ng/ml (0.0-0.49)
[2025-08-17] MEDS: cefTRIAXone/D5w 1gm IV premix 1 GM/50 ML BAG IV (15:58)
--- NOTE | 2025-08-17 17:57 | ESHP_ITS ---
<Statement entered by Alissa Omalley MD - 08/18/25 13:48> Patient was seen and examined at bedside. I agree on the assessment and plan on this note. - Patient's plan and care discussed with my attending, Dr. Debbie Omalley MD Internal Medicine PGY-3 Documentation for date of: 08/17/25 HPI History of Present Illness Chief complaint: Worsening SOB History of present illness: The patient is a 70-year-old male with a past medical history significant for COPD (on 2 L home oxygen at baseline) and hypertension who presented to the emergency department on 08/17/2025 with shortness of breath. He has had multiple prior hospitalizations for COPD exacerbations.The patient reports progressively worsening shortness of breath since last night. He states that during his previous admission for a similar presentation, he was discharged with home oxygen; however, one oxygen tank became empty and the second tank was not functioning properly. Due to worsening dyspnea without adequate oxygen support, he presented to the ED.He also reports a dry cough with minimal white sputum production, as well as chills and diaphoresis. The patient describes chest pressure localized around the diaphragmatic area, rated 6/10 in intensity, that is triggered by coughing and resolves afterward; he believes this pain is muscular in nature. He endorses nausea, vomiting, and orthopnea. He denies headache, vision changes, abdominal pain, diarrhea, constipation, unintentional weight loss and recent sick contact. ED Course: -Initial vitals were blood pressure 217/143, pulse 119, RR 30, temp 98.4, O2 sat 97% on 40 FiO2 CPAP -Labs significant for WBC 12.1, hemoglobin 16.5. VBG adequate compensation. Troponin is negative, Pro-Ca negative -Imaging included chest x-ray showed moderate moderate hyperexpansion consistent of COPD. EKG sinus tachycardia rate 114 -In the ED, patient was given nitroglycerin, aspirin 25 mg, albuterol 10 mg inhaled, Ativan 1 mg, breathing treatment, methylprednisolone 250 mg IV x 1, ceftriaxone, -Patient was admitted for COPD exacerbation. Review of Systems Review of systems otherwise negative except what is mentioned above. 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 Skin: Warm, dry, intact. No rash or ecchymoses. Head: Normocephalic, atraumatic. Eye: Normal conjunctiva, PERRL. Throat: Oral mucosa moist. No obvious lesions in oropharynx. Cardiovascular: Regular rate and rhythm, no murmur, +S1/S2. Respiratory: Lungs are clear to auscultation, respirations unlabored with minimal rales Gastrointestinal: Soft, mildly tender to deep palpation around periumbilical area , non-distended. No guarding or rebound tenderness. Extremities: No edema, no cyanosis, no clubbing. Neuro: Alert and oriented x3.No focal deficits observed. Conversant, moving all extremities. No overt cerebellar signs/incoordination. Psychiatric: Cooperative, appropriate affect Results: Labs 08/18/25 05:30 08/18/25 05:30 Labs: Short CBC 08/17/25 Range/Units 14:36 WBC 12.1 H (3.8-10.6) Thou/mm3 Hgb 16.5 H (13.5-16.0) g/dL Hct 48.4 (41.0-53.0) % Plt Count 290 D (140-440) Thou/mm3 BMP 08/17/25 14:36 Sodium 140 Potassium 4.0 Chloride 104 Carbon Dioxide 26.1 BUN 9 Creatinine 0.8 Glucose 122 H Calcium 9.5 Cardiac Enzymes 08/17/25 Range/Units 14:36 Troponin I < 0.002 (0.0-0.045) ng/mL Liver Function 08/17/25 Range/Units 14:36 Total Bilirubin 0.6 (0.3-1.2) mg/dL AST 26 (0-34) U/L ALT 19 (10-49) U/L Alkaline Phosphatase 108 (46-116) U/L Albumin 5.1 H (3.4-4.8) gm/dL ABG Interpretation ABG results: 08/17/25 15:06 ABG pH 7.35 ABG pCO2 48 ABG pO2 127 H ABG HCO3 27 H ABG O2 Saturation 99 H ABG Base Excess 0 Quality Measures Quality Measures sepsis Current suspected stage: ruled out Possible source: unknown Blood cultures ordered: yes Antibiotic ordered: Yes Advance care planning discussed with:: patient Medications Home Medications and Allergies Allergies Allergy/AdvReac Type Severity Reaction Status Date / Time No Known Allergies Allergy Verified 07/06/25 21:45 Visit Medications Albuterol/Ipratropium (Albuterol/Ipratropium (Duoneb) Rt Catrina 3 Ml Nebu) 3 ml INH Q6HRRT [facility] Stop: 09/16/25 18:59 Albuterol/Ipratropium (Albuterol/Ipratropium (Duoneb) Rt Catrina 3 Ml Nebu) 3 ml INH Q2HR PRN PRN Reason: SHORTNESS OF BREATH OR WHEEZE Stop: 09/16/25 17:53 Amlodipine Besylate (Amlodipine Besylate 5 Mg Tablet) 10 mg PO QDAY [facility] Stop: 09/16/25 17:59 Nitroglycerin/Dextrose (Nitroglycerin In D5w Ivpb) 50 mg in 250 mls @ 1.5 mls/hr IV .Q24H PRN; Protocol PRN Reason: PER PROTOCOL Stop: 09/16/25 14:30 Prednisone (Prednisone 20 Mg Tablet) 40 mg PO QDAY [facility] Stop: 08/24/25 17:53 Sodium Chloride (Sodium Chloride Rt Catrina 0.9% 3 Ml Nebu) 3 ml INH PRN PRN PRN Reason: SOLN Stop: 09/16/25 14:41 Discontinued Medications Albuterol (Albuterol Rt 2.5 Mg/0.5 Ml Nebu) 10 mg INH X1 ONE Stop: 08/17/25 14:43 Last Admin: 08/17/25 14:53 Dose: 10 mg Aspirin (Aspirin 325 Mg Tablet) 325 mg PO X1 ONE Stop: 08/17/25 14:43 Last Admin: 08/17/25 14:53 Dose: 325 mg Ceftriaxone Sodium/Dextrose (Rocephin/D5w 1gm Iv Premix) 1 gm in 50 mls @ 100 mls/hr IV X1 ONE Stop: 08/17/25 15:16 Last Admin: 08/17/25 15:58 Dose: 100 mls/hr Ipratropium [place] (Ipratropium Rt 0.5 Mg/ 2.5 Ml Nebu) 1 mg INH X1 ONE Stop: 08/17/25 14:43 Last Admin: 08/17/25 14:54 Dose: Not Given Ipratropium [place] (Ipratropium Rt 0.5 Mg/ 2.5 Ml Nebu) 1 mg INH X1 ONE Stop: 08/17/25 14:43 Last Admin: 08/17/25 14:53 Dose: 1 mg Ipratropium [place] (Ipratropium Rt 0.5 Mg/ 2.5 Ml Nebu) 1 mg INH X1 ONE Stop: 08/17/25 14:52 Lorazepam (Lorazepam 2 Mg/Ml Vial) 1 mg IV X1 ONE Stop: 08/17/25 14:43 Last Admin: 08/17/25 14:53 Dose: 1 mg Methylprednisolone Sodium Succinate (Methylprednisolone Sod Succ 62.5 Mg/Ml 2ml Vial) 250 mg IV X1 ONE Stop: 08/17/25 14:43 Last Admin: 08/17/25 14:57 Dose: 250 mg Nitroglycerin (Nitroglycerin Oint 2% 1 Inch Packet) 1 inch TOP X1 ONE Stop: 08/17/25 14:40 Last Admin: 08/17/25 14:44 Dose: 1 inch Assessment & Plan Plan The patient is a 70-year-old male with a past medical history significant for COPD (on 2 L home oxygen at baseline) and hypertension who presented to the emergency department on 08/17/2025 with shortness of breath. Admitted for CP exacerbation. COPD exacerbation Acute hypoxic respiratory failure secondary To above Erythrocytosis Likely secondary to chronic hypoxia from COPD and tobacco use history Leukocytosis Superimposed bacterial/viral pneumonia although less likely * Acute COPD exacerbation secondary to interruption of home oxygen therapy due to depletion and malfunction of home oxygen tanks leading to hypoxia. SOB yesterday with chills, diaphoresis and dry cough with no recent sick contact. COPD (on 2 L home oxygen at baseline) * Saturating 97% on on 40 FiO2 CPAP * WBC 12.21, hemoglobin 16.5 ( due to chronic hypoxia) Plan - Azithromycin (08/17-) - Ceftriaxone (08/17-) - Fluticasone/Salmeterol 1 puff INH - DuoNebs every 2 hours and scheduled every 4 hours - MRSA nares - Cocci serology - Influenza A, and B rapid test - Follow-up blood culture - CPAP at night as needed - Daily CMP and BMP Primary hypertension Hypertensive urgency (resolving) On admission blood pressure 217/143 pulse 118. Hypertensive urgency likely occurred due to hypoxia-induced sympathetic activation from inadequate oxygen supply during the COPD exacerbation - Resume home amlodipine 10 mg daily - Started losartan 25 mg p.o. daily - Hydralazine 10 mg IVP every 30 minutes as needed for hypertensive urgency Sinus tachycardia Noncardiac chest pain EKG shows: sinus tachycardic rate 114 * Describes chest pressure localized around the diaphragmatic area, rated 6/10 in intensity, that is triggered by coughing and resolves afterward; he believes this pain is muscular in nature. * In ED pt receive nitro and ASA 325mg with minimal relief, still feels pressure with dry coughing * Troponin less than 0.0002 Plan - Continue to monitor chest pain - Guaifenesin for cough relief Hospital management: Lines: peripheral IV Diet: regular Bowel: NA DVT prophylaxis: Lovenox Sc Disposition: med-tele HTN urgency/COPD exa CODE STATUS: Full code Patient assessed under supervision of attending physician and senior Dr. Omalley PGY-3 Haily Alexandre MD PGY-1, Internal Medicine Please note: this document was transcribed using voice recognition technology; minor inaccuracies may be present. Attending Provider Attestation/Addendum I or my resident physicians have discussed care with the ED physician and I have made the decision to admit. I have discussed and was present for the essential components of the history, physical examination, diagnosis, and treatment plan with the resident. I agree with the patient's care as documented by the resident and amended herein by me. Sanchez Lewis DO. Although this document has been carefully reviewed, there may still be some phonetic and other typographical errors. These errors are purely grammatical due to imperfections in the software program and should not be construed in any way to compromise the substance of the patient's medical care during this visit.
[2025-08-17] MEDS: FLUTICASONE/SALMETEROL 250/50 14 DOSE INH 1 PUFF INH (18:39)
[2025-08-17] MEDS: ALBUTEROL/IPRATROPIUM (Duoneb) RT SOL 3 ML NEBU INH ×3 (18:39→22:32)
[2025-08-17 19:03] LABS: Collection Type, Urine Clean Catch
--- NOTE | 2025-08-17 19:09 | PC.NURSE ---
admitting team called about late albuterol tx. admitting team made aware, no new orders at this time
[2025-08-17 19:10] LABS: Bacteria,Urine Rare; Bilirubin,Urine Negative (Negative); Blood,Urine Negative (Negative); Clarity,Urine Clear (Clear/Hazy); Color,Urine Yellow (Lt Yel-Yel); Culture Indicated,Urine Not Indicated; Glucose, Urine Negative (Negative); Ketones,Urine Negative (Negative); Leukocyte Esterase,Urine Negative (Negative); Nitrite,Urine Negative (Negative); PH,Urine 5.5 (5.0-7.0); Protein,Urine 1+ (Neg - Trace); RBC,Urine 1 /hpf (0-3); Specific Gravity,Urine 1.025 (1.001-1.035); Squamous Epithelial Cell,Urine < 1 /hpf (0-5); Urobilinogen,Urine Negative mg/dL (0.0-1.0); WBC,Urine 2 /hpf (0-5)
[2025-08-17] MEDS: ENOXAPARIN SOD INJ 30 MG/0.3 ML SYRINGE 40 MG SC (19:52)
--- NOTE | 2025-08-17 20:23 | PC.NURSE ---
3 attempts made to call [facility] nurse kamar. no response.this nurses extension given to clerk hunter for call back
[2025-08-18] VITALS (17 sets, daily range): BP systolic 106–121; BP diastolic 57–72; PULSE 81–98; RESP 16–96; TEMP 36.2–37.2; O2SAT 93–99
[2025-08-18] MEDS: ALBUTEROL/IPRATROPIUM (Duoneb) RT SOL 3 ML NEBU INH ×6 (02:57→22:34)
[2025-08-18] MEDS: ACETAMINOPHEN 325 MG TABLET 650 MG PO (03:41)
[2025-08-18] MEDS: FLUTICASONE/SALMETEROL 250/50 14 DOSE INH 1 PUFF INH ×2 (06:17→18:47)
[2025-08-18 06:27] LABS: Basophils # (Auto) 0.0 Thou/mm3 (0.0-0.2); Basophils % (Auto) 0 % (0-2.5); Eosinophils # (Auto) 0.0 Thou/mm3 (0.0-0.5); Eosinophils % (Auto) 0 % (0-10); Hematocrit 41.1 % (41.0-53.0); Hemoglobin 13.9 g/dL (13.5-16.0); Immature Granulocytes Auto 0.02 Thou/mm3 (0.00-0.00); Lymphocytes # (Auto) 0.5 Thou/mm3 (1.0-4.8); Lymphocytes % (Auto) 7 % (10-50); Mean Corpuscular HGB Conc 33.8 g/dl (31.0-37.0); Mean Corpuscular Hemoglobin 31.7 pg (25.0-35.0); Mean Corpuscular Volume 94 fL (80-100); Monocytes # (Auto) 0.1 Thou/mm3 (0.0-0.8); Monocytes % (Auto) 2 % (0-12); Neutrophils # (Auto) 6.8 Thou/mm3 (1.8-7.7); Neutrophils % (Auto) 91 % (37-80); Nucleated Red Blood Cell # 0.00 Thou/mm3 (0.00-0.00); Nucleated Red Blood Cell % 0 /100 WBC (0); Platelet Count 245 Thou/mm3 (140-440); RDW Standard Deviation 39.9 fL (35.1-43.9); Red Blood Count 4.38 Miln/mm3 (4.50-5.90); White Blood Count 7.5 Thou/mm3 (3.8-10.6)
[2025-08-18 07:42] LABS: Anion Gap 15 (7-16); BUN/Creatinine Ratio 14 Ratio (12-20); Blood Urea Nitrogen 13 mg/dL (9-23); Calcium 9.5 mg/dL (8.3-10.6); Carbon Dioxide 21.9 mMol/L (20.0-31.0); Chloride 103 mMol/L (98-107); Creatinine (Component) 0.9 mg/dL (0.6-1.3); Estimated Creatinine Clearance 78.6 mL/min (>60); Glucose 264 mg/dL (74-106); Magnesium 2.1 mg/dL (1.6-2.6); Osmolality,Calculated 288 (275-295); Phosphorous 2.9 mg/dL (2.4-5.1); Potassium 3.7 mMol/L (3.4-5.1); Sodium 140 mMol/L (136-145); eGFR > 60 See Note
[2025-08-18] MEDS: ENOXAPARIN SOD INJ 40 MG/0.4 ML SYRINGE SC (08:19)
[2025-08-18] MEDS: LOSARTAN POTASSIUM 25 MG TABLET PO (08:21)
--- NOTE | 2025-08-18 11:25 | PC.SS ---
Addendum entered by Deepali Bowman 08/18/25 13:50: DME referral submitted via [employer], order fulfilled and O2 is at bedside Addendum entered by Deepali Bowman 08/18/25 12:04: SS spoke to MATHEW Galdamez in regards to O2 delivery. Per Denice pt does not have anything at home, no concentrator or tanks. SS reached out to Jen at [facility] who stated courtesy driver will deliver everything to bedside, Jen requested an updated O2 rerfferal tto be sent. SS reached back out to Denice to inform her of need for O2 testing for new O2 order. Original Note: SS was informed by Dr. Lewis pt is out of O2, SS reached out to pt designated DME provider [facility]. In which they will send someone out to provide O2 at bedside.
--- NOTE | 2025-08-18 12:18 | PC.NURSE ---
pt sating 94% on 2L NC. Per pt feels SOB at this time to test oxygen level with ambulation per pt has been using o2 at home 24 hrs at day.
[2025-08-18 14:34] LABS: Cocci Serology, IgM Negative (Negative)
[2025-08-18] MEDS: cefTRIAXone/D5w 1gm IV premix 1 GM/50 ML BAG IV (20:13)
[2025-08-18 21:59] LABS: Sodium 143 mMol/L (136-145)
[2025-08-19] VITALS (11 sets, daily range): BP systolic 112–132; BP diastolic 57–74; PULSE 72–96; RESP 16–23; TEMP 36.1–37.1; O2SAT 92–99; BMI 13.0
[2025-08-19] MEDS: ALBUTEROL/IPRATROPIUM (Duoneb) RT SOL 3 ML NEBU INH ×4 (02:37→14:54)
[2025-08-19 06:06] LABS: Basophils # (Auto) 0.0 Thou/mm3 (0.0-0.2); Basophils % (Auto) 0 % (0-2.5); Eosinophils # (Auto) 0.0 Thou/mm3 (0.0-0.5); Eosinophils % (Auto) 0 % (0-10); Hematocrit 38.0 % (41.0-53.0); Hemoglobin 12.8 g/dL (13.5-16.0); Immature Granulocytes Auto 0.14 Thou/mm3 (0.00-0.00); Lymphocytes # (Auto) 1.1 Thou/mm3 (1.0-4.8); Lymphocytes % (Auto) 4 % (10-50); Mean Corpuscular HGB Conc 33.7 g/dl (31.0-37.0); Mean Corpuscular Hemoglobin 32.6 pg (25.0-35.0); Mean Corpuscular Volume 97 fL (80-100); Monocytes # (Auto) 1.3 Thou/mm3 (0.0-0.8); Monocytes % (Auto) 5 % (0-12); Neutrophils # (Auto) 22.2 Thou/mm3 (1.8-7.7); Neutrophils % (Auto) 90 % (37-80); Nucleated Red Blood Cell # 0.00 Thou/mm3 (0.00-0.00); Nucleated Red Blood Cell % 0 /100 WBC (0); Platelet Count 245 Thou/mm3 (140-440); RDW Standard Deviation 42.0 fL (35.1-43.9); Red Blood Count 3.93 Miln/mm3 (4.50-5.90); White Blood Count 24.8 Thou/mm3 (3.8-10.6)
[2025-08-19 06:37] LABS: Anion Gap 11 (7-16); BUN/Creatinine Ratio 18 Ratio (12-20); Blood Urea Nitrogen 14 mg/dL (9-23); Calcium 9.2 mg/dL (8.3-10.6); Carbon Dioxide 27.0 mMol/L (20.0-31.0); Chloride 107 mMol/L (98-107); Creatinine (Component) 0.8 mg/dL (0.6-1.3); Estimated Creatinine Clearance 88.4 mL/min (>60); Glucose 131 mg/dL (74-106); Magnesium 2.2 mg/dL (1.6-2.6); Osmolality,Calculated 291 (275-295); Phosphorous 4.4 mg/dL (2.4-5.1); Potassium 3.7 mMol/L (3.4-5.1); Sodium 145 mMol/L (136-145); eGFR > 60 See Note
[2025-08-19] MEDS: FLUTICASONE/SALMETEROL 250/50 14 DOSE INH 1 PUFF INH (06:53)
[2025-08-19] MEDS: ENOXAPARIN SOD INJ 40 MG/0.4 ML SYRINGE SC (08:05)
[2025-08-19] MEDS: LOSARTAN POTASSIUM 25 MG TABLET PO (08:06)
--- NOTE | 2025-08-19 08:25 | PD.HHPROG ---
Documentation for date of: 08/18/25 Subjective - Hospitalist Subjective Interval history: Events overnight, vital signs stable, patient afebrile, patient on 2 L of bedside visit, SpO2 98%, no subjective complaints Exam Vital Signs Temp Pulse Resp BP Pulse Ox O2 Del Method O2 Flow Rate 98.6 F 83 18 119/74 99 Nasal Cannula 2 08/19/25 04:00 08/19/25 08:07 08/19/25 06:44 08/19/25 08:07 08/19/25 06:44 08/19/25 00:00 08/19/25 06:44 FiO2 30 08/18/25 03:14 Narrative GENERAL APPEARANCE: NAD, resting comfortably HEENT: Normocephalic, atraumatic, extraocular movements intact. NECK: Supple, CARDIOVASULAR: NSR, S1, S2 heard without S3-S4 or murmur no rubs or gallops. LUNGS/CHEST: CTA bilaterally ABDOMEN: Soft, nontender, with normal bowel sounds. No pulsatile masses. No rebound, rigidity, or guarding. EXTREMITIES: Grossly normal NEURO: Alert, awake and oriented x3. PSYCHIATRIC: Mood and affect normal Objective - Hospitalist Labs Diagram: 08/19/25 04:40 08/19/25 04:40 Labs: Laboratory Results - last 24 hr 08/17/25 08/18/25 08/19/25 18:17 21:00 04:40 WBC 24.8 H D RBC 3.93 L Hgb 12.8 L Hct 38.0 L MCV 97 MCH 32.6 MCHC 33.7 RDW Std Deviation 42.0 Plt Count 245 Neut % (Auto) 90 H Lymph % (Auto) 4 L [place] % (Auto) 5 Eos % (Auto) 0 Baso % (Auto) 0 Neut # (Auto) 22.2 H Lymph # (Auto) 1.1 [place] # (Auto) 1.3 H Eos # (Auto) 0.0 Baso # (Auto) 0.0 Immature Gran # (Auto) 0.14 H Absolute Nucleated RBC 0.00 Immature Gran % 1 H Nucleated RBC % 0 Sodium 143 145 Potassium 3.7 Chloride 107 Carbon Dioxide 27.0 Anion Gap 11 BUN 14 Creatinine 0.8 Estim Creat Clear Calc 88.4 eGFR > 60 BUN/Creatinine Ratio 18 Glucose 131 H D Calculated Osmolality 291 Calcium 9.2 Phosphorus 4.4 Magnesium 2.2 Coccidioides IgM Ab Negative ABG Interpretation ABG results: 08/17/25 15:06 ABG pH 7.35 ABG pCO2 48 ABG pO2 127 H ABG HCO3 27 H ABG O2 Saturation 99 H ABG Base Excess 0 Assessment & Plan Assessment: [address] [address] History and Physical Report Author: Hailymindy Vasquezbogdan Patient Name: CHASE PINEDA : 1955 <Statement entered by Alissa Omalley MD - 08/18/25 13:48> Patient was seen and examined at bedside. I agree on the assessment and plan on this note. - Patient's plan and care discussed with my attending, Dr. Debbie Omalley MD Internal Medicine PGY-3 Documentation for date of: 08/17/25 HPI History of Present Illness Chief complaint: Worsening SOB History of present illness: The patient is a 70-year-old male with a past medical history significant for COPD (on 2 L home oxygen at baseline) and hypertension who presented to the emergency department on 08/17/2025 with shortness of breath. He has had multiple prior hospitalizations for COPD exacerbations.The patient reports progressively worsening shortness of breath since last night. He states that during his previous admission for a similar presentation, he was discharged with home oxygen; however, one oxygen tank became empty and the second tank was not functioning properly. Due to worsening dyspnea without adequate oxygen support, he presented to the ED.He also reports a dry cough with minimal white sputum production, as well as chills and diaphoresis. The patient describes chest pressure localized around the diaphragmatic area, rated 6/10 in intensity, that is triggered by coughing and resolves afterward; he believes this pain is muscular in nature. He endorses nausea, vomiting, and orthopnea. He denies headache, vision changes, abdominal pain, diarrhea, constipation, unintentional weight loss and recent sick contact. ED Course: -Initial vitals were blood pressure 217/143, pulse 119, RR 30, temp 98.4, O2 sat 97% on 40 FiO2 CPAP -Labs significant for WBC 12.1, hemoglobin 16.5. VBG adequate compensation. Troponin is negative, Pro-Ca negative -Imaging included chest x-ray showed moderate moderate hyperexpansion consistent of COPD. EKG sinus tachycardia rate 114 -In the ED, patient was given nitroglycerin, aspirin 25 mg, albuterol 10 mg inhaled, Ativan 1 mg, breathing treatment, methylprednisolone 250 mg IV x 1, ceftriaxone, -Patient was admitted for COPD exacerbation. Review of Systems Review of systems otherwise negative except what is mentioned above. 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 Skin: Warm, dry, intact. No rash or ecchymoses. Head: Normocephalic, atraumatic. Eye: Normal conjunctiva, PERRL. Throat: Oral mucosa moist. No obvious lesions in oropharynx. Cardiovascular: Regular rate and rhythm, no murmur, +S1/S2. Respiratory: Lungs are clear to auscultation, respirations unlabored with minimal rales Gastrointestinal: Soft, mildly tender to deep palpation around periumbilical area , non-distended. No guarding or rebound tenderness. Extremities: No edema, no cyanosis, no clubbing. Neuro: Alert and oriented x3.No focal deficits observed. Conversant, moving all extremities. No overt cerebellar signs/incoordination. Psychiatric: Cooperative, appropriate affect Results: Labs 08/18/25 05:30 08/18/25 05:30 Labs: Short CBC 08/17/25 Range/Units 14:36 WBC 12.1 H (3.8-10.6) Thou/mm3 Hgb 16.5 H (13.5-16.0) g/dL Hct 48.4 (41.0-53.0) % Plt Count 290 D (140-440) Thou/mm3 BMP 08/17/25 14:36 Sodium 140 Potassium 4.0 Chloride 104 Carbon Dioxide 26.1 BUN 9 Creatinine 0.8 Glucose 122 H Calcium 9.5 Cardiac Enzymes 08/17/25 Range/Units 14:36 Troponin I < 0.002 (0.0-0.045) ng/mL Liver Function 08/17/25 Range/Units 14:36 Total Bilirubin 0.6 (0.3-1.2) mg/dL AST 26 (0-34) U/L ALT 19 (10-49) U/L Alkaline Phosphatase 108 (46-116) U/L Albumin 5.1 H (3.4-4.8) gm/dL ABG Interpretation ABG results: 08/17/25 15:06 ABG pH 7.35 ABG pCO2 48 ABG pO2 127 H ABG HCO3 27 H ABG O2 Saturation 99 H ABG Base Excess 0 Quality Measures Quality Measures sepsis Current suspected stage: ruled out Possible source: unknown Blood cultures ordered: yes Antibiotic ordered: Yes Advance care planning discussed with:: patient Medications Home Medications and Allergies Allergies Allergy/AdvReac Type Severity Reaction Status Date / Time No Known Allergies Allergy Verified 07/06/25 21:45 Visit Medications Albuterol/Ipratropium (Albuterol/Ipratropium (Duoneb) Rt Catrina 3 Ml Nebu) 3 ml INH Q6HRRT [facility] Stop: 09/16/25 18:59 Albuterol/Ipratropium (Albuterol/Ipratropium (Duoneb) Rt Catrina 3 Ml Nebu) 3 ml INH Q2HR PRN PRN Reason: SHORTNESS OF BREATH OR WHEEZE Stop: 09/16/25 17:53 Amlodipine Besylate (Amlodipine Besylate 5 Mg Tablet) 10 mg PO QDAY [facility] Stop: 09/16/25 17:59 Nitroglycerin/Dextrose (Nitroglycerin In D5w Ivpb) 50 mg in 250 mls @ 1.5 mls/hr IV .Q24H PRN; Protocol PRN Reason: PER PROTOCOL Stop: 09/16/25 14:30 Prednisone (Prednisone 20 Mg Tablet) 40 mg PO QDAY [facility] Stop: 08/24/25 17:53 Sodium Chloride (Sodium Chloride Rt Catrina 0.9% 3 Ml Nebu) 3 ml INH PRN PRN PRN Reason: SOLN Stop: 09/16/25 14:41 Discontinued Medications Albuterol (Albuterol Rt 2.5 Mg/0.5 Ml Nebu) 10 mg INH X1 ONE Stop: 08/17/25 14:43 Last Admin: 08/17/25 14:53 Dose: 10 mg Aspirin (Aspirin 325 Mg Tablet) 325 mg PO X1 ONE Stop: 08/17/25 14:43 Last Admin: 08/17/25 14:53 Dose: 325 mg Ceftriaxone Sodium/Dextrose (Rocephin/D5w 1gm Iv Premix) 1 gm in 50 mls @ 100 mls/hr IV X1 ONE Stop: 08/17/25 15:16 Last Admin: 08/17/25 15:58 Dose: 100 mls/hr Ipratropium [place] (Ipratropium Rt 0.5 Mg/ 2.5 Ml Nebu) 1 mg INH X1 ONE Stop: 08/17/25 14:43 Last Admin: 08/17/25 14:54 Dose: Not Given Ipratropium [place] (Ipratropium Rt 0.5 Mg/ 2.5 Ml Nebu) 1 mg INH X1 ONE Stop: 08/17/25 14:43 Last Admin: 08/17/25 14:53 Dose: 1 mg Ipratropium [place] (Ipratropium Rt 0.5 Mg/ 2.5 Ml Nebu) 1 mg INH X1 ONE Stop: 08/17/25 14:52 Lorazepam (Lorazepam 2 Mg/Ml Vial) 1 mg IV X1 ONE Stop: 08/17/25 14:43 Last Admin: 08/17/25 14:53 Dose: 1 mg Methylprednisolone Sodium Succinate (Methylprednisolone Sod Succ 62.5 Mg/Ml 2ml Vial) 250 mg IV X1 ONE Stop: 08/17/25 14:43 Last Admin: 08/17/25 14:57 Dose: 250 mg Nitroglycerin (Nitroglycerin Oint 2% 1 Inch Packet) 1 inch TOP X1 ONE Stop: 08/17/25 14:40 Last Admin: 08/17/25 14:44 Dose: 1 inch Assessment & Plan Plan The patient is a 70-year-old male with a past medical history significant for COPD (on 2 L home oxygen at baseline) and hypertension who presented to the emergency department on 08/17/2025 with shortness of breath. Admitted for CP exacerbation. COPD exacerbation Acute hypoxic respiratory failure secondary To above Erythrocytosis Likely secondary to chronic hypoxia from COPD and tobacco use history Superimposed bacterial/viral pneumonia although less likely Acute COPD exacerbation secondary to interruption of home oxygen therapy due to depletion and malfunction of home oxygen tanks leading to hypoxia. SOB yesterday with chills, diaphoresis and dry cough with no recent sick contact. COPD (on 2 L home oxygen at baseline) Saturating 97% on on 40 FiO2 CPAP WBC 12.21, hemoglobin 16.5 ( due to chronic hypoxia) Plan -Continue antibiotics although I think I may discontinue those tomorrow on 08/19 chest x-ray was clear, procalcitonin negative -Prednisone 40 mg daily for 5 days - Fluticasone/Salmeterol 1 puff INH - DuoNebs every 2 hours and scheduled every 4 hours - MRSA nares - Cocci serology -negative - Influenza A, and B rapid test -negative - CPAP at night as needed - Daily CMP and BMP - Home O2 delivered Primary hypertension Hypertensive urgency (resolving) On admission blood pressure 217/143 pulse 118. Hypertensive urgency likely occurred due to hypoxia-induced sympathetic activation from inadequate oxygen supply during the COPD exacerbation - Resume home amlodipine 10 mg daily - Continue losartan 25 mg p.o. daily - As needed hydralazine Sinus tachycardia Noncardiac chest pain EKG shows: sinus tachycardic rate 114 Describes chest pressure localized around the diaphragmatic area, rated 6/10 in intensity, that is triggered by coughing and resolves afterward; he believes this pain is muscular in nature. In ED pt receive nitro and ASA 325mg with minimal relief, still feels pressure with dry coughing Troponin less than 0.0002 Plan - Continue to monitor chest pain - Guaifenesin for cough relief Hospital management: Lines: peripheral IV Diet: regular Bowel: NA DVT prophylaxis: Lovenox Sc Disposition: med-tele HTN urgency/COPD exa CODE STATUS: Full code Dispo: Likely discharge on 08/19 with home O2 Time Spent with Patient Time: Total time spent is greater than 50% in coordination of care (as documented) at patient's floor/unit and/or counseling patient: Time with patient: 25 - 35 minutes Reason for Continued Stay Reason for continued stay: further monitoring Quality Measures Quality Measures sepsis Current suspected stage: ruled out Possible source: unknown Blood cultures ordered: yes Antibiotic ordered: Yes Advance care planning discussed with:: patient
[2025-08-19 09:04] LABS: Basophils # (Auto) 0.0 Thou/mm3 (0.0-0.2); Basophils % (Auto) 0 % (0-2.5); Eosinophils # (Auto) 0.0 Thou/mm3 (0.0-0.5); Eosinophils % (Auto) 0 % (0-10); Hematocrit 41.6 % (41.0-53.0); Hemoglobin 14.0 g/dL (13.5-16.0); Immature Granulocytes Auto 0.13 Thou/mm3 (0.00-0.00); Lymphocytes # (Auto) 1.7 Thou/mm3 (1.0-4.8); Lymphocytes % (Auto) 7 % (10-50); Mean Corpuscular HGB Conc 33.7 g/dl (31.0-37.0); Mean Corpuscular Hemoglobin 32.1 pg (25.0-35.0); Mean Corpuscular Volume 95 fL (80-100); Monocytes # (Auto) 0.8 Thou/mm3 (0.0-0.8); Monocytes % (Auto) 3 % (0-12); Neutrophils # (Auto) 21.6 Thou/mm3 (1.8-7.7); Neutrophils % (Auto) 89 % (37-80); Nucleated Red Blood Cell # 0.00 Thou/mm3 (0.00-0.00); Nucleated Red Blood Cell % 0 /100 WBC (0); Platelet Count 265 Thou/mm3 (140-440); RDW Standard Deviation 41.9 fL (35.1-43.9); Red Blood Count 4.36 Miln/mm3 (4.50-5.90); White Blood Count 24.3 Thou/mm3 (3.8-10.6)
--- NOTE | 2025-08-19 13:26 | PC.SS ---
Wheel Chairs Patients diagnosis creates mobility limitations that significantly impairs ability to participate in the patients activities of daily living either in their entirety, or in a reasonable time frame in the home and the patients mobility limitations can not be sufficiently resolved with an appropriately fitted cane or walker. Also the use of a manual wheelchair will sufficiently improve patient?s ability to participate in the activities of daily living in the home and the patient is willing to use the wheelchair that is provided in the home. The patient has some one in the home that is available, willing and able to provide assistance with the wheelchair.
[2025-08-19 14:24] LABS: Cocci Serology, IgG Negative (Negative)
--- NOTE | 2025-08-19 15:34 | PD.RESDS ---
Planned Discharge Date 08/19/25 DS: Providers Provider Date of admission: 08/17/25 17:49 Primary care physician: Physician No Primary/Family Admitting Provider: Raz Lewis DO Attending Provider on Admission: Raz Lewis DO Consults: 08/19/25 12:15 Referral Physical Therapy Stat Comment: Physician Instructions: Instructions: please see pt for wheelchair need prior to discharge. pt has dc orders now Attending Provider on DC: Ina Richter MD Discharging Provider: Ina Richter MD DS: Diagnosis Problem List Completed Was Problem List Reviewed/Reconciled?: Yes Hospital Course Hospital Course Hospital course: Mr. Morrow is a 70-year-old male with a past medical history significant for COPD (on 2 L home oxygen at baseline) and hypertension who presented to the emergency department on 08/17/2025 with shortness of breath. He has had multiple prior hospitalizations for COPD exacerbations and reports noncompliance with his oxygen use due to malfunction of his previous oxygen tank. Patient is admitted to the hospital for acute hypoxic respiratory failure secondary to COPD exacerbation patient was started on steroids and supplemental oxygen. Patient was also given antibiotics which he completed the course during hospitalization. Patient had remained afebrile, blood cultures are negative and 48 hours, vitals have been stable and patient is saturating on 2 L oxygen via nasal cannula. During hospitalization patient also complained of generalized weakness PT was ordered and recommended home health PT however patient does not have a primary care physician therefore home health orders could not be completed. PT also recommended if unable to go home with home health patient may be discharged with a wheelchair which orders are placed. Patient is otherwise hemodynamically stable, labs are reviewed and patient is saturating 97% on 2 L oxygen via nasal cannula. Patient is safe to be discharged home and recommended to follow-up outpatient PT after establishing a primary care. Images Chest x-ray: Moderate hyperexpansion, No pneumonia or pulmonary edema Discharge Recommendations -Follow up with PCP within 1 week of discharge, if you do not have a primary care physician you can come see us at the [facility] by calling [phone] -COntinue to use home oxygen daily -Continue rest of medications as previously prescribed -Return to the ED or call EMS if symptoms return and/or worsen Hospitalization Diagnosis #COPD exacerbation #Acute hypoxic respiratory failure secondary To above #Erythrocytosis Likely secondary to chronic hypoxia from COPD and tobacco use history #Superimposed bacterial/viral pneumonia although less likely #Primary hypertension #Hypertensive urgency (resolving) #Sinus tachycardia #Noncardiac chest pain Assessment and plan discussed with my attending physician Dr. Debbie Richter (PGY-2)- Internal medicine resident Time Spent with Patient Time attestation: Total time spent providing and/or coordinating discharge services: Time spent: Greater than 30 minutes Exam Vital Signs Temp Pulse Resp BP Pulse Ox O2 Del Method O2 Flow Rate 98.0 F 83 18 132/69 H 99 Nasal Cannula 2 08/19/25 12:00 08/19/25 14:54 08/19/25 14:54 08/19/25 12:00 08/19/25 14:54 08/19/25 12:00 08/19/25 14:54 FiO2 30 08/18/25 03:14 Narrative Exam GENERAL: A&Ox3 . Awake, Not in acute distress NEURO: no focal neurological deficits HEENT: Atraumatic, Normocephalic. mucous membranes moist. Eyes open, symmetrical, & clear HEART: Normal Heart Sounds LUNGS: Clear to auscultation with no wheezing or crackles. ABDOMEN: soft, non-distended, non-tender, bowel sounds heard, no guarding or rebound tenderness SKIN: No Rash or ecchymoses EXTREMITIES: No edema, tenderness, able to move all 4 extremities, pedal pulses palpated Discharge Plan Plan Patient Disposition: HOME (Self Care) Patient condition on transfer: Stable Care Plan Goals: HACER JESSICA CON EL DOCTOR PRIMARIO EN CARA SEMANA. VOLVER A LA EMERGECIAS SI LOS SIMPTOMAS ENPEORAN. -Follow up with PCP within 1 week of discharge, if you do not have a primary care physician you can come see us at the [facility] by calling [phone] -Continue to use home oxygen daily -Continue rest of medications as previously prescribed -Return to the ED or call EMS if symptoms return and/or worsen Prescriptions/Referrals Prescriptions/Med Rec: New losartan 25 mg Tablet 25 mg PO QDAY 30 Days Qty: 30 0RF prednisone 20 mg tablet 40 mg PO QDAY 3 Days Qty: 6 0RF Continued fluticasone propion-salmeterol [Wixela Inhub] 250-50 mcg/dose blister with device 1 inh INHALATION Q12H PRN (Reason: copd) Qty: 1 1RF Patient Comments: INHALE 1 PUFF BY MOUTH TWICE A DAY FOR COPD amlodipine 10 mg tablet 10 mg PO QDAY Qty: 30 2RF Patient Comments: TOME 1 TABLETA POR V A ORAL TODOS LOS D albuterol sulfate 90 mcg/actuation aerosol powdr breath activated 2 inh inhalation Q6H PRN (Reason: shortness of breath or wheezing) Qty: 1 0RF fluticasone propion-salmeterol [Wixela Inhub] 250-50 mcg/dose blister with device 1 inh inhalation BID Qty: 60 1RF Discontinued albuterol sulfate 90 mcg/actuation Hfa Aerosol Inhaler 2 puff INHALATION Q4H PRN (Reason: SOB ) Qty: 1 1RF amlodipine 10 mg tablet 10 mg PO QDAY Qty: 30 1RF Referrals: No Primary/Family,Physician [Primary Care Provider] Patient/Caregiver Discharge Instructions Meds to Beds: No Education Materials: COPD: Wheezing and Chest Tightness, Understanding Oxygen Therapy, Using Oxygen Safely, Traveling with Oxygen, Using an Oxygen Tank at Home, COPD Meds Print Language: Mosotho Stand Alone Forms: [employer] Award Info., Patient Portal Info Letter, Work/Release Restrictions Discharge Order Discharge Orders: Discharge (Routine); Ordered 08/19/25 Ordered By: Ina Richter Quality Discharge Quality Measures VTE prophylaxis MD Attestestation MD Attestation I have discussed and was present for the essential components of the discharge history, physical examination, diagnosis, and discharge treatment plan with the resident. I agree with the patient's discharge care as documented by the resident and amended herein by me. Sanchez Lewis DO. The patient understood all discharge instructions, all questions were answered satisfactorily. The patient was instructed to return to the Emergency Department is symptoms worsened or persisted. Patient was on baseline home O2 at time of discharge home. Home oxygen was delivered. Patient was stable, afebrile, tolerating p.o. intake and ambulatory with a walker at time of discharge home. Unfortunately home health was not able to be provided to the patient due to the fact he does not have a primary care physician, we did offer outpatient physical therapy for the patient. Although this document has been carefully reviewed, there may still be some phonetic and other typographical errors. These errors are purely grammatical due to imperfections in the software program and should not be construed in any way to compromise the substance of the patient's medical care during this visit.
--- NOTE | 2025-08-19 15:44 | PC.SS ---
Wheel chair referral submitted on [facility]. Awaiting response.
--- NOTE | 2025-08-19 18:09 | PC.NURSE ---
pts wheelchair did not arrived as expected at 1700 attempted to call no answer. Per pt will like to leave d/t ride waiting for the past hour. if wheelchair arrives we will attempt to deliver home address given to paul [place]
== END 2025-08-19 18:02 | disposition home or self-care (01) ==
LOC: SERX 17:27 → SERHOLD 18:34 → S3SX 08-18 13:45 → SERHOLD 08-20 13:44
PROVIDERS: Student in an Organized Health Care Education/Training Program; Admitting Provider Student in an Organized Health Care Education/Training Program; Emergency Provider Emergency Medicine; Visit Provider Student in an Organized Health Care Education/Training Program
DX: J44.1 Chronic obstructive pulmonary disease with (acute) exacerbation (principal); J96.01 Acute respiratory failure with hypoxia; D75.1 Secondary polycythemia; I10 Essential (primary) hypertension; I16.0 Hypertensive urgency; R00.0 Tachycardia, unspecified
CPT/HCPCS: 36415; 36600; 71045; 80048; 80053; 81001; 82803; 83605; 83615; 83690; 83735; 83880; 84100; 84145; 84295; 84484; 85025; 85610; 85730; 86331; 86635; 87040; 87081; 87502; 93005; 94640; 94644; 94660; 96365; 96366; 96372; 97162; 99291; 99292; A9270; G0378; J0696; J1650; J2060; J2919; J7512; J7602; J7644; J7611